=== PATIENT | female | born 1960 | race Caucasian/White ===

== ENCOUNTER 2019-08-08 18:39 | Observation (INO) | payer BC ==
[2019-08-08 19:49] LABS: Anion Gap 16 mmol/L (10-20); BUN (Urea Nitrogen) Less than 4 mg/dL (9.8-20.1); Calc. Creatinine Clearance 0 mL/min (70-130); Calcium 8.6 mg/dL (7.8-10.44); Carbon Dioxide 23 mmol/L (22-29); Chloride 96 mmol/L (98-107); Estimated GFR-MDRD Greater than 90; Glucose 95 mg/dL (70-105); Potassium 3.5 mmol/L (3.5-5.1); Sodium 131 mmol/L (136-145)
[2019-08-08] MEDS ORDERED: Haloperidol Lactate 5 MG/ML VIAL ONE (20:21)
[2019-08-08] MEDS ORDERED: hydrALAZINE 20 MG/ML VIAL SLOW IVP PRN (22:26)
[2019-08-08] MEDS ORDERED: Nitroglycerin 0.4 MG TAB (25 Tab Bottle) PO PRN (22:26)
[2019-08-08] MEDS ORDERED: Ondansetron PF 4 MG/2 ML Vial IVP PRN (22:26)
[2019-08-08] MEDS ORDERED: Nitroglycerin 2% Ointment 1 INCH/1 GM Packet TOP SCH (23:30)
--- NOTE | 2019-08-08 23:31 | HP ---
PRIMARY CARE PHYSICIAN: Meseret Ling MD CHIEF COMPLAINT: Abdominal pain. HISTORY OF PRESENT ILLNESS: Ms. Barnhart is a pleasant 58-year-old female, who has a history of hypertension and hypercholesterolemia. She was in her usual state of health until about 2 weeks ago. She started having what she says is a bronchitis like symptoms. She was coughing and congested and then in the last couple of days, she started having abdominal pain and says that she would get pain on the left side of her abdomen every time she would eat. The eating seem to make it worse. She also felt nauseated and then the night before admission, she was vomiting all night and all this morning. She denies having any fevers, but she was having some chills. She did have some diarrhea. There is no vomiting any blood or any blood in the stools. She says the pain in the left side kind of moved more to the epigastric region, but she still has some soreness on the left side. When asked if she has had any sick contacts, she says her granddaughter who is 15-year-old was sick with similar symptoms about 2 weeks ago, but no other contacts and she has not eaten anything unusual that she is aware of. Currently after being given some IV fluids, she is feeling better. She originally presented to the emergency room in [place], where they did give her IV Protonix as well as GI cocktail, placed her on some IV fluids. There, it was noted that she had an elevated troponin of 0.033. She had a CT scan of the abdomen and pelvis and ultrasound, which were essentially negative. REVIEW OF SYSTEMS: All systems were reviewed and are negative except for that mentioned in the history of present illness. PAST MEDICAL HISTORY: Significant for hypertension, hypercholesterolemia, and breast cancer. PAST SURGICAL HISTORY: She has had a x2, lumpectomy, cholecystectomy. ALLERGIES: NO KNOWN DRUG ALLERGIES. SOCIAL HISTORY: She smokes about a pack a week for the last 15 years. She will drink beer occasionally. She has 2 children. She is . She currently does not work outside the home. FAMILY HISTORY: Significant for cancer. MEDICATIONS: Aspirin 81 mg daily, as well as amlodipine 10 mg daily. PHYSICAL EXAMINATION: GENERAL: She is alert and oriented. She appears to be in no acute distress. She is well developed and well nourished. VITAL SIGNS: Blood pressure 133/78, heart rate 93, respiratory rate 17, temperature is 98.5. HEENT: Pupils are equal, round, and reactive to light. Extraocular muscles are intact. Her sclerae anicteric. Throat, no erythema, no exudates. NECK: No adenopathy. No bruits. LUNGS: Clear to auscultation. There is no wheezing, no rales, no rhonchi. CARDIOVASCULAR: She had a normal S1, S2. There is no S3 or S4. However, I did hear a possible slight systolic murmur. ABDOMEN: Soft. She did have some mild left-sided tenderness. There is no rebound, no guarding, no organomegaly. EXTREMITIES: There is no clubbing or cyanosis. No edema. No joint effusions. NEUROLOGIC: Her cranial nerves are intact. Muscle strength is also intact. SKIN AND INTEGUMENT: No skin changes. No rash. LABORATORY DATA: Lab work from the ER in [place] was reviewed. Her white blood cell count there was 12.7, hemoglobin 14, hematocrit is 43.1, and platelet count was 314. Sodium 129, potassium 3.6, chloride is 90, CO2 is 25, BUN of 5, creatinine 0.55, glucose is 101, alkaline phosphatase was 206. Troponin 0.033. She had a CT scan of the abdomen showing some hepatomegaly and steatosis. There was noted a 4 cm density in the adnexa. She had an ultrasound showing post cholecystectomy. Chest x-ray showed some chronic changes, but no infiltrates. On her EKG, it is sinus rhythm, the rate was 84. There was some changes associated with left atrial enlargement. This is by my reading. ASSESSMENT: 1. This is a pleasant 58-year-old female, who presents with abdominal pain which has been left-sided, appears to be worse with eating. However, CT scan is essentially negative. However, she did have a slightly elevated troponin at [place]. For this reason, we will rule out cardiac causes given her history of hypertension and smoking. It is unlikely though I now suspect that her symptoms are likely related to some type of viral gastroenteritis. However, for the plan, she will be placed in observation, continue to trend her cardiac enzymes, get a nuclear stress test in the a.m. as well as an echocardiogram. 2. For abdominal pain, CT scan and ultrasound have already been done. Her alkaline phosphatase was slightly elevated. We will get hepatitis panel and repeat her chemistry panel and liver function test in the a.m. 3. Hypertension. We will need to reconcile and restart her home medications and further recommendations depend on her clinical course. Job ID: [id number]
[2019-08-08] MEDS ORDERED: Nitroglycerin 2% Ointment 1 INCH/1 GM Packet ONE (23:37)
[2019-08-08 23:57] LABS: Troponin I Less than 0.010 ng/mL (< 0.028)
[2019-08-09 00:14] LABS: HBCM Index 0.07 S/CO (0-0.79); HBSAg Index 0.23 S/CO (0-0.99); Hep A IgM AB Non-Reactive (NonReactive); Hep A IgM S/CO 0.11 S/CO (0-0.79); Hep B Surf Ag Non-Reactive S/CO (NonReactive); Hep C IgG Ab Non-Reactive (NonReactive); Hep C Index 0.17 S/CO (0-0.79); Hepatitis B Core IgM Abs Non-Reactive (NonReactive)
[2019-08-09] MEDS ORDERED: Acetaminophen 325 MG TAB ONE (01:45)
[2019-08-09] MEDS: Acetaminophen 325 MG TAB PO PRN ×3 (01:50→18:26)
[2019-08-09 02:41] LABS: #Basophils 0.1 thou/uL (0.0-0.2); #Eosinphils 0.1 thou/uL (0.0-0.7); #Lymphocytes 2.3 thou/uL (1.20-3.40); #Monocytes 0.4 thou/uL (0.11-0.59); #Neutrophils 6.6 thou/uL (1.40-6.50); %Basophils 0.7 % (0.0-1.0); %Lymphocytes 24.5 % (21.0-51.0); %Monocytes 4.7 % (0.0-10.0); %Neutrophils 69.1 % (42.0-75.0); Hemoglobin 14.1 g/dL (12.0-16.0); Mean Corpuscular HGB CONC 34.9 g/dL (32.0-36.0); Mean Corpuscular Hemoglobin 33.7 pg (27.0-31.0); Mean Corpuscular Volume 96.8 fL (78.0-98.0); Mean Platelet Volume 6.8 fL (7.4-10.4); Platelet Count 288 thou/uL (130-400); RBC Distribution Width 11.4 % (11.5-14.5); Red Blood Cell (RBC) Count 4.17 mill/uL (4.20-5.40); White Blood Cell (WBC) Count 9.6 thou/uL (4.8-10.8)
[2019-08-09 03:26] LABS: ALT (SGPT) 38 U/L (8-55); AST (SGOT) 77 U/L (5-34); Albumin 3.9 g/dL (3.5-5.0); Alkaline Phosphatase 190 U/L (40-110); Anion Gap 14 mmol/L (10-20); BUN (Urea Nitrogen) Less than 4 mg/dL (9.8-20.1); Bilirubin, Direct 0.2 mg/dL (0.1-0.3); Bilirubin, Total 0.5 mg/dL (0.2-1.2); Calc. Creatinine Clearance 0 mL/min (70-130); Calcium 8.9 mg/dL (7.8-10.44); Carbon Dioxide 25 mmol/L (22-29); Chloride 96 mmol/L (98-107); Cholesterol 223 mg/dl (< 200 Desired); Estimated GFR-MDRD Greater than 90; Glucose 100 mg/dL (70-105); HDL Cholesterol 56 mg/dL (>60 Neg Risk); LDL Cholesterol, Calculated 137 mg/dL; Potassium 3.4 mmol/L (3.5-5.1); Sodium 132 mmol/L (136-145); Triglycerides 148 mg/dL (Less than 150)
[2019-08-09] MEDS: Nitroglycerin 2% Ointment 1 INCH/1 GM Packet TOP SCH ×3 (05:41→21:03)
[2019-08-09] MEDS ORDERED: Lorazepam 1 MG TAB ONE (10:43)
[2019-08-09] MEDS ORDERED: Famotidine 20 MG TAB ONE (11:40)
[2019-08-09] MEDS ORDERED: Enoxaparin Sodium 40 MG/0.4 ML SYRINGE ONE (11:40)
[2019-08-09] MEDS: Famotidine 20 MG TAB PO SCH ×2 (11:44→21:02)
[2019-08-09] MEDS: Enoxaparin Sodium 40 MG/0.4 ML SYRINGE SC SCH (11:44)
[2019-08-09 12:07] VITALS: BMI 31.0
[2019-08-09] MEDS: Ondansetron ODT 4 MG TAB PO PRN (13:55)
[2019-08-09] MEDS ORDERED: Potassium Chloride 20 MEQ TAB PO SCH (14:45)
--- NOTE | 2019-08-09 17:36 | PRG ---
DATE OF SERVICE: 08/09/2019 SUBJECTIVE: She is seen and examined at the bedside. She feels better. She was able to eat today. She does not have any diarrhea. She does not have that much pain in the abdomen like she was before, although she still has some soreness in the abdomen. She had one part of her stress test done today, and she will have the 2nd part tomorrow. OBJECTIVE: VITAL SIGNS: Blood pressure is 137/63, pulse is 96, temperature is 98.3, respirations 16, and O2 saturation 95% on room air. HEENT: Head is atraumatic and normocephalic. Eyes are PERRLA. Sclerae are nonicteric. Oral mucosa is moist. NECK: Supple. LUNGS: Clear. HEART: S1 and S2 normal. ABDOMEN: Somewhat tender mainly in the epigastric area. No guarding. No masses. EXTREMITIES: No clubbing, cyanosis, or edema. NEUROLOGICAL: She is alert and oriented x4. There are no any motor or sensory deficits. LABORATORY DATA: Labs showed a white count of 9.6, hemoglobin 14.1, hematocrit 40.4, and platelet count is 288,000. Sodium of 132, potassium 3.4, chloride 96, CO2 of 25, BUN 4, creatinine 0.55. AST 77, alkaline phosphatase 193. Troponins within normal limits. Total cholesterol 223, triglycerides 148, LDL of 137, HDL 56. Hepatitis panel within normal limits. IMPRESSION: 1. Acute gastroenteritis, most likely viral in origin with hepatomegaly with diffuse hepatic steatosis along with mild fullness of the ureters bilaterally without calyceal dilatation along with reservoir effect of the common bile duct along with mildly prominent ed hepatis lymph nodes and 4 cm hypodensity left adnexa on the CT of the abdomen done in [facility]. 2. Hypertension. 3. Hyperlipidemia. 4. History of breast cancer. PLAN: The patient is a tolerating regular food without more nausea, vomiting, or diarrhea. I think this was viral gastroenteritis. We are going to continue observation. We will do the 2nd part of the stress test tomorrow, and we are going to repeat her liver function test tomorrow morning. Her AST was slightly elevated, and her ALT was normal, and alkaline phosphatase was somewhat elevated too. Those two tests came down comparing to what they were yesterday. Her hyponatremia and hypochloremia improved. We will continue gentle hydration, and she should be able to go home tomorrow if she tolerates her food and she does not have any significant problems. Job ID: [id number]
[2019-08-09] MEDS: traMADol HCl 50 MG TAB PO PRN ×2 (18:26→23:15)
[2019-08-09] MEDS ORDERED: Lidocaine 2% Viscous Solution 20 ML, Aluminum & Magnesium Hydroxide 30 ML, Donnatal Eli... SSW SCH (22:00)
[2019-08-10] MEDS: Nitroglycerin 2% Ointment 1 INCH/1 GM Packet TOP SCH ×3 (04:33→21:00)
[2019-08-10 05:15] LABS: ALT (SGPT) 39 U/L (8-55); AST (SGOT) 80 U/L (5-34); Albumin 3.6 g/dL (3.5-5.0); Alkaline Phosphatase 165 U/L (40-110); Anion Gap 13 mmol/L (10-20); BUN (Urea Nitrogen) 5 mg/dL (9.8-20.1); Bilirubin, Total 0.4 mg/dL (0.2-1.2); Calc. Creatinine Clearance 128 mL/min (70-130); Calcium 8.8 mg/dL (7.8-10.44); Carbon Dioxide 25 mmol/L (22-29); Chloride 94 mmol/L (98-107); Estimated GFR-MDRD Greater than 90; Glucose 80 mg/dL (70-105); Potassium 3.6 mmol/L (3.5-5.1); Protein, Total 6.6 g/dL (6.0-8.3); Sodium 128 mmol/L (136-145)
[2019-08-10] MEDS: Enoxaparin Sodium 40 MG/0.4 ML SYRINGE SC SCH (07:54)
[2019-08-10] MEDS: Ubidecarenone 50 MG CAP PO SCH (08:01)
[2019-08-10] MEDS: Famotidine 20 MG TAB PO SCH ×2 (08:02→20:59)
[2019-08-10] MEDS: Amlodipine 10 MG TAB PO SCH (08:02)
[2019-08-10] MEDS: Acetaminophen 325 MG TAB PO PRN ×2 (08:07→21:00)
[2019-08-10] MEDS: traMADol HCl 50 MG TAB PO PRN ×4 (08:07→21:00)
[2019-08-10] MEDS ORDERED: Lorazepam 0.5 MG TAB PO SCH (09:15)
[2019-08-10] MEDS ORDERED: Regadenoson 0.4 MG/5 ML SYRINGE ONE (09:20)
--- NOTE | 2019-08-10 14:02 | NM ---
MYOCARDIAL PERFUSION SCAN: 08/10/19 The patient was given 10 millicuries of technetium Sestamibi for rest imaging and 30 millicuries for stress imaging. The patient was stressed according to Lexiscan protocol. INDICATIONS: Elevated troponins. Ventricle was imaged with SPECT imaging and attenuation correction images obtained. FINDINGS: There is very mild activity change seen in the apex even on attenuation corrected imaging. I cannot e xclude mild reversible ischemia at the apex. Activity is otherwise normal. This activity change in th e apex is best appreciated on wyatt scale images. Wall motion appears normal. Ejection fraction is normal at 69%. IMPRESSION: Evidence of mild reversible ischemia in the apex. POS: [facility]
[2019-08-10] MEDS: Ondansetron ODT 4 MG TAB PO PRN (15:21)
--- NOTE | 2019-08-10 17:29 | PRG ---
DATE OF SERVICE: 08/10/2019 SUBJECTIVE: The patient is seen and examined at the bedside. She had some nausea today after she ate. She thinks that she ate too much. She almost ate 2 portions. She did not vomit. She did not have any diarrhea. She still has some abdominal discomfort, but it is significantly less than what she had before. She just came back from stress test. OBJECTIVE: VITAL SIGNS: Blood pressure is 167/79, pulse is 88, respirations 16, temperature is 98.2, and O2 saturation is 96% on room air. HEENT: Her head is atraumatic and normocephalic. Eyes are PERRLA. Sclerae are nonicteric. Oral mucosa is moist. NECK: Supple. LUNGS: Clear. HEART: S1 and S2 normal. There is a systolic murmur at the left sternal border mostly audible at this area, 2/6. No S3. No S4. ABDOMEN: Soft, obese, somewhat tender in the midepigastric area. Bowel sounds are present. EXTREMITIES: No clubbing, cyanosis, or edema. NEUROLOGICAL: She is alert and oriented x4. There are no any motor or sensory deficits. LABORATORY DATA: Sodium of 128, potassium 3.6, chloride 94, CO2 of 25, BUN 5, creatinine 0.6. AST 80, alkaline phosphatase 165. DIAGNOSTIC DATA: Echocardiogram showed LVEF estimated at 60% to 65%, grade 1/3 diastolic dysfunction, mild mitral regurgitation, moderate aortic regurgitation, and mild tricuspid regurgitation. IMPRESSION: 1. Acute gastroenteritis, most likely viral in origin with hepatomegaly with diffuse hepatic steatosis along with mild fullness of the ureters bilaterally without calyceal dilatation along with reservoir effect of the common bile duct along with mildly prominent ed hepatis lymph nodes at 4 cm hypodensity of left adnexum on the CT of the abdomen done in [facility]. 2. Hypertension. 3. Hyperlipidemia. 4. History of breast cancer. 5. Cardiac ischemia per currently done stress test during this hospitalization. 6. Hyponatremia and hypochloremia, unclear etiology at this point. PLAN: Cardiology consultation with Dr. Elizabeth, today. GI evaluation of her abdominal pain with ultrasound of the abdomen and pelvic ultrasound to evaluate adnexal lesion. The patient had a CT of the abdomen and pelvis, which showed 4 cm hypodensity of the left adnexum, for which a followup pelvic ultrasound was recommended by radiologist, and since she has a murmur in the upper part of the chest, she might have a stenosis of the left carotid artery, and we will get a carotid ultrasound done. Job ID: [id number]
[2019-08-10] MEDS ORDERED: Carvedilol 3.125 MG TAB PO SCH (18:15)
--- NOTE | 2019-08-10 21:25 | CON ---
DATE OF CONSULTATION: PRIMARY CARE PHYSICIAN: Meseret Ling MD, [facility] doctor. PRIMARY GRAPHIC DESIGN TEACHER: Han Carrasco MD REASON FOR CARDIOLOGY CONSULTATION: Abnormal stress test. HISTORY OF PRESENT ILLNESS: Ms. Barnhart is a very present 58-year-old female with a significant history of hypertension and hyperlipidemia and a current smoker. She was doing relatively well until 2 weeks ago, she started having bronchitis for 2 weeks. Also, she started having sharp pain in the left lateral abdomen, upper abdomen, and under left breast for 2 weeks. She also started having nausea and vomiting for the last 3 to 4 days, especially after eating and drinking. However, she denied any chest pain, heaviness, tightness, shortness of breath, or any other cardiac complaints. She is having a watery diarrhea 1 to 2 times a week. However, she has not had it for the last couple of days. She never had a cardiac workup till Tuesday. The patient's stress test showing mild reversible ischemia at the apex with EF 69%. The patient's echocardiogram done today, which shows EF 60% to 65%, grade 1 diastolic dysfunction, mild mitral valve regurgitation, mild aortic valve regurgitation, and mild tricuspid regurgitation. At this moment, the patient also complained of pain to the bilateral lower extremities with resisted walking and eventually this symptom improved after 5 to 10 minutes. PAST MEDICAL HISTORY: 1. Hypertension. 2. Hyperlipidemia. 3. Left breast cancer about 19 years ago. 4. Seasonal allergy. 5. Current smoker, 1 pack a week. PAST SURGICAL HISTORY: 1. x2. 2. Lumpectomy x2. 3. Cholecystectomy in August 2014. FAMILY HISTORY: The patient has a very significant family history of cancer such as breast lymphoma and lung cancer in her family. SOCIAL HISTORY: She is . She has 2 children, who are living well. She drinks a few beers a day and close to 6 packs of beer on weekend. Most likely she drink beer every day. She smokes 1 pack a week. She tried to quit. She is smoking for 15 years. She denied illicit drug abuse. She walks 1 to 2 miles 3 to 4 times a week without any cardiac complaints. She drinks less than 2 cups of coffee in the morning. ALLERGIES: NO KNOWN DRUG ALLERGIES. HOME MEDICATIONS: 1. Aspirin 81 mg once a day. 2. Amlodipine 10 mg once a day. 3. Fenofibrate 48 mg once a day. 4. CoQ10 200 mg once a day. 5. Vitamin B12 100 mcg once a day. 6. Vitamin D 2000 units, 4 capsules daily. REVIEW OF SYSTEMS: 12-point review of systems negative unless otherwise mentioned in the HPI. PHYSICAL EXAMINATION: VITAL SIGNS: Blood pressure 145/71, temperature 98.4, heart rate 91, sinus rhythm, respiratory rate 16, O2 saturation 95% on room air. GENERAL: The patient is alert and oriented x4, not in acute distress. HEENT: Head is normocephalic, atraumatic. Eyes: Extraocular muscle movement intact. ENT and mouth, oral and nasal mucosa moist without lesion. NECK: Supple. Normal range of motion. No JVD. Mild murmur, bruit in the left neck side. RESPIRATORY: Clear to auscultate bilaterally, but diminished at the bases. CARDIOVASCULAR: Regular rate and rhythm. Normal S1, S2. There is no S3 or S4. No significant murmur, hives, or thrill noted. 2+ pulses in bilateral upper and lower extremities. 2+ pulses in the bilateral upper extremities and bilateral dorsal pedis pulses; however, very diminished in bilateral femoral, popliteal, and posterior tibial pulses. No edema in the lower extremities. ABDOMEN: Soft, mass to palpitate, but very tenderness to the epigastric area with palpitation. SKIN: Warm and dry. No lesion, rash, or erythema noted. MUSCULOSKELETAL: The patient able to move all extremities without difficulty. The patient has pain with walking in the lower extremities. NEUROLOGIC: The patient is alert and oriented x4. Nonfocal. PSYCHIATRIC: The patient's mood is appropriate. LABORATORY DATA: WBC 9.6, hemoglobin 14.1, hematocrit 40.4, platelet 288. D-dimer 0.27. Sodium 128, potassium 3.6, BUN 5, creatinine 0.6, calcium 8.8, AST 80, ALT 39, troponin negative x3. Cholesterol 223, triglyceride 148, HDL 56, and LDL 137. CMP is 2.37. ASSESSMENT AND PLAN: 1. Abnormal stress test today showed mild ischemia in the apex. The patient is asymptomatic at this moment; however, the patient has a history of hypertension and current smoker, the patient should undergo cardiac catheterization, I would like to discuss with Dr. Elizabeth, possibly the patient might be able to have a cardiac catheterization as outpatient. I like to defer to Dr. Elizabeth' decision. 2. Hypertension. The patient's blood pressure is stable at this moment with current medication. 3. Hyperlipidemia. She has been on the fenofibrate 48 mg. However, the patient's last cholesterol today, total cholesterol 223 and LDL 137. LDL should be less than 100. The patient might need to start statin. 4. Bruit in the left carotid area. The patient denied any dizziness, or lightheadedness. The patient's primary care doctors will order a carotid Doppler study during this hospitalization. 5. Diminished pulses in the bilateral lower extremities. The patient denied claudication. However, the patient have to stop several times sometimes during walking exercise. Arterial Doppler study of the lower extremity with JUANY will be recommended for this patient. Thank you very much for Cardiology Service to participate in the care of this patient. We will follow along the patient's care team and make further recommendations as appropriate. Job ID: [id number]
--- NOTE | 2019-08-10 23:50 | CON ---
DATE OF CONSULTATION: 08/10/2019 INDICATION FOR CONSULTATION: A 58-year-old female who was admitted after an episode of abdominal pain, nausea and vomiting. She does have a history of hypertension, hypercholesterolemia, and tobacco abuse. She continues to smoke. She is admitted to the hospital and underwent stress testing. Her cardiac enzymes are negative. Her LDL level was 131. The stress test does show evidence of small area of possible apical reversible ischemia. She also has been found to have left carotid bruit and still being evaluated for some other issues from a medical standpoint. Echocardiogram showed an ejection fraction of 60% to 65% with moderate aortic valve regurgitation, mild mitral and tricuspid valve regurgitation, and evidence of 1/3 diastolic dysfunction. At this time, she has denied any chest pain to me. She is very stable otherwise and had no EKG changes that would indicate ischemia and enzymes remain negative. PAST MEDICAL HISTORY: Please refer to the notes dictated by the nurse practitioner. SOCIAL HISTORY: Please refer to the notes dictated by the nurse practitioner. FAMILY HISTORY: Please refer to the notes dictated by the nurse practitioner. REVIEW OF SYSTEMS: Please refer to the notes dictated by the nurse practitioner. MEDICATIONS: Please refer to the notes dictated by the nurse practitioner. ALLERGIES: PLEASE REFER TO THE NOTES DICTATED BY THE NURSE PRACTITIONER. LABORATORY DATA: Please refer to the notes dictated by the nurse practitioner. PHYSICAL EXAMINATION: GENERAL: As indicated, a well-developed and well-nourished female. VITAL SIGNS: Blood pressure is elevated at 160s systolically, heart rates is in the 60s to 70s, shows sinus rhythm. HEENT: Shows the head to be normocephalic and atraumatic. There is a left carotid bruit. The right carotid has decreased upstroke and may also have a soft bruit on the right side, but there is definitely a left carotid bruit noted. CHEST: Clear to auscultation. CARDIOVASCULAR: Reveals a regular rate and rhythm. She has soft systolic murmur of the aortic area. ABDOMEN: Soft and nontender. I cannot elicit any masses or tenderness at this time. Femoral pulses are present. EXTREMITIES: Showed no clubbing, cyanosis, or edema. Dorsalis pedis pulses are present. Posterior tibial pulses were not palpable. NEUROLOGIC: She appears to be intact. IMPRESSION: 1. A 58-year-old female with slightly abnormal stress test, but risk factors for coronary artery disease. She denies any chest pain. EKG is unremarkable, as well as enzymes. I do not see an indication at this time to proceed with cardiac catheterization. 2. Carotid artery bruit on the left side. She will need to undergo further evaluation. She is to have a carotid Doppler done tomorrow. 3. Evidence of hypercholesterolemia with an LDL of 131. Since she is a smoker, it is recommended the LDL level be less than 70. I suggest she start on statin medication such as Lipitor or Crestor in addition to her medication that she is already taking. I think she is taking fenofibrate. 4. Tobacco abuse. I have strongly encouraged her to stop smoking altogether. 5. Mild diastolic dysfunction. We will continue to monitor this and follow this and will be continued to treat with medications. At this time, overall cardiac status appears to be stable. Further workup is pending for her carotids, as well as abdominal ultrasound. I believe there was some abnormalities noted perhaps on the CT scan of the abdomen. Job ID: [id number]
[2019-08-11] MEDS: Acetaminophen 325 MG TAB PO PRN ×3 (01:03→09:47)
[2019-08-11] MEDS: traMADol HCl 50 MG TAB PO PRN ×3 (01:03→09:46)
[2019-08-11] MEDS: Nitroglycerin 2% Ointment 1 INCH/1 GM Packet TOP SCH (05:31)
[2019-08-11] MEDS ORDERED: Carvedilol 3.125 MG TAB PO SCH (08:00)
[2019-08-11] MEDS: Enoxaparin Sodium 40 MG/0.4 ML SYRINGE SC SCH (08:39)
[2019-08-11] MEDS: Amlodipine 10 MG TAB PO SCH (08:39)
[2019-08-11] MEDS: Famotidine 20 MG TAB PO SCH (08:40)
[2019-08-11] MEDS: Ubidecarenone 50 MG CAP PO SCH (08:40)
[2019-08-11] MEDS ORDERED: Aspirin 81 mg Enteric Coated Tablet PO SCH (09:45)
--- NOTE | 2019-08-11 09:48 | PDOC.CPN ---
- Subjective Date: 08/11/19 Time: 09:49 Interval history: The pt seen and examined. No overnight events. NO cardiac complaints. She cont having pain to Lt lateral ABD area. - Objective Allergies/Adverse Reactions: Allergies Allergy/AdvReac Type Severity Reaction Status Date / Time No Known Drug Allergies Allergy Verified 08/09/19 12:54 Visit Medications: Current Medications Acetaminophen (Tylenol) 650 mg PO Q4H PRN PRN Reason: Headache/Fever/Mild Pain (1-3) Last Admin: 08/11/19 05:33 Dose: 650 mg Amlodipine Besylate (Norvasc) 10 mg PO DAILY [facility] Last Admin: 08/11/19 08:39 Dose: 10 mg Carvedilol (Coreg) 3.125 mg PO BID-[facility] Last Admin: 08/11/19 08:39 Dose: 3.125 mg Coenzyme Q10 (Coenzyme Q10) 200 mg PO DAILY [facility] Last Admin: 08/11/19 08:40 Dose: 200 mg Enoxaparin Sodium (Lovenox) 40 mg SC 0900 [facility] Last Admin: 08/11/19 08:39 Dose: 40 mg Famotidine (Pepcid) 20 mg PO BID [facility] Last Admin: 08/11/19 08:40 Dose: 20 mg Hydralazine HCl (Apresoline) 10 mg SLOW IVP Q4H PRN PRN Reason: SBP > 180 and HR < 70 Nitroglycerin (Nitro-Bid 2% Ointment) 0.5 inch TOP Q8HR [facility] Last Admin: 08/11/19 05:31 Dose: 0.5 inch Nitroglycerin (Nitrostat) 0.4 mg PO Q5MIN PRN PRN Reason: Chest Pain Ondansetron HCl (Zofran Odt) 4 mg PO Q6H PRN PRN Reason: Nausea/Vomiting Last Admin: 08/10/19 15:21 Dose: 4 mg Ondansetron HCl (Zofran) 4 mg IVP Q6H PRN PRN Reason: Nausea/Vomiting Tramadol HCl (Ultram) 50 mg PO Q4H PRN PRN Reason: Pain Last Admin: 08/11/19 05:33 Dose: 50 mg Vital Signs & Weight: Vital Signs Temp Pulse Resp BP BP Pulse Ox 08/11/19 07:43 97.9 F 88 16 120/70 94 L 08/11/19 05:25 98.2 F 80 16 132/77 94 L 08/11/19 00:50 98.1 F 82 16 128/72 95 Weight 171 lb - Physical Exam General: alert & oriented x3 Neck: supple neck Cardiac: regular rate and rhythm, S1/S2 Lungs: clear to auscultation Neuro: cranial nerve 2-12 intact Abdomen: unremarkable Extremities: no cyanosis Musculoskeletal: normal range of motion - Labs Result Diagrams: 08/09/19 02:34 08/10/19 04:37 Troponin/CKMB Troponin I 0.010 ng/mL (< 0.028) 08/09/19 02:34 - Telemetry Sinus rhythms and dysrhythmias: sinus rhythm - Assessment/Plan Assessment/Plan: 1. Abnormal stress test with mild reversible ischemia in apex on 08/10/2019 - asymptomatic; EF 60-65%; On Coreg; will start ASA 81mg qd from today; plan to start Statin; however, would like to defer to Dr Carrasco, who will be the pt's primary collections clerk as outpt, since the pt is heavy drinker and elevated AST 2. HTN - stable with current med 3. HLD - recommend to start regular exercise and watching her diet; holding starting Statin for elevated AST and hx of heavy drinker (per daughter; she does not want to discuss about that with her mother since the pt will upset) 4. Mod AR - cont. to monitor 5. Bruit to Lt carotid artery - Carotid study was done today 6. Diminished BLE pulses - recommend Arterial study as outpt setting 7. Tobacco abuse - 8. possible ETOH abuse - per daughter, the pt drinks at least 6-12 beers a day; however, her daughter does not want to discuss about it front of the pt since the pt will get very upset. MAR reviewed * Echo on 08/10/2019 with EF 60-65%, grade I dd, mild MR and TR, and mod AR * From Cardiac standpoint, the pt is stable d/c home and f/u with Dr Carrasco in 2 wks
--- NOTE | 2019-08-11 10:18 | ULT ---
CAROTID DOPPLER: Date: 08/11/2019 INDICATION: Heart murmur. FINDINGS: Ultrasound and Doppler studies performed of the extracranial carotid arteries. Color Doppler with spe ctral analysis and velocity recordings obtained. FINDINGS: Ultrasound images show mild intimal thickening. No significant plaque4. Velocity recordings are normal bilaterally. Vertebral arteries show antegrade flow. IMPRESSION: 1. Mild intimal thickening. 2. No evidence of stenosis. POS: [facility]
--- NOTE | 2019-08-11 10:25 | ULT ---
PELVIC ULTRASOUND: Date: 08/11/2019 Transabdominal and endovaginal ultrasound of pelvis performed. INDICATION: Follow-up CT of 08/08/2019 which revealed a low density mass in the left pelvis. FINDINGS: The uterus has a normal size and appearance. Evidence of small amount of fluid in the endometrial cav ity. Recommend correlation regarding vaginal bleeding. Uterine measurements recorded at 7.2 x 2.2 x 4.2 cm. Endometrial stripe measured at 2-3 mm. Neither ovary is definitely identified. On the transabdominal exam, there is a cyst in the left adnex a which measures 2.5-3.5 cm. This would correspond to the cystic mass seen in the left pelvis on rece nt CT. Review of the CT indicates that this represents an ovarian cyst. On the endovaginal exam, neither ovary is identified. IMPRESSION: A cystic mass in the left adnexa seen on transabdominal exam corresponds to the cystic mass seen on r ecent CT. CT would indicate a left ovarian cyst. Ultrasound shows simple cystic characteristics. Foll ow-up is recommended to ensure resolution. Cystic ovarian neoplasm remains a consideration in a patie nt of this age. POS: [facility]
[2019-08-11 12:25] VITALS: BP 129/77; TEMP 98.1
--- NOTE | 2019-08-11 16:06 | DIS ---
DATE OF ADMISSION: 08/08/2019 DATE OF DISCHARGE: 08/11/2019 DISCHARGE DISPOSITION: To home. PRIMARY DISCHARGE DIAGNOSIS: Abdominal pain with nausea and vomiting, resolved. SECONDARY DISCHARGE DIAGNOSES: Hypertension, dyslipidemia, osteoarthritis of the knees, and suspected alcohol abuse. PROCEDURES DONE DURING HOSPITALIZATION: Pelvic ultrasound done showed a cystic mass in the left adnexa. Ultrasound shows it to be simple cyst measuring 2.5 x 3.5 cm. Ultrasound carotids showed mild intimal thickening, no evidence of stenosis. Nuclear stress test done showed ejection fraction of 69% with normal wall motion. There is mild reversible ischemia seen in the apex. Echo with 2D Doppler done showed EF of 60% to 65%, moderate aortic regurgitation, normal left ventricular wall thickness, LV size was normal, no regional wall motion abnormalities were seen on the echo. LABORATORY DATA: H and H of 14 and 40, platelet count 288, MCV 96, BUN 5, and creatinine 0.6. AST 80, ALT 39, and alk phos 165. Troponin x3 negative. Total cholesterol 223, triglycerides 148, LDL 137, and HDL 56. Acute hepatitis panel was nonreactive. DISCHARGE MEDICATIONS: 1. Norvasc 10 mg p.o. daily. 2. Aspirin 81 mg p.o. daily. 3. Vitamin D3 4000 units p.o. daily. 4. Tricor 48 mg p.o. daily. 5. vitamin B12 1000 mcg p.o. daily. 6. CoQ10 200 mg p.o. daily. 7. Atorvastatin 20 mg p.o. daily. 8. Coreg 3.125 mg twice daily. 9. Bentyl 20 mg 3 times daily p.r.n. for abdominal pain. 10. Zofran p.r.n. ALLERGIES: NO KNOWN DRUG ALLERGIES. DISCHARGE PLAN: The patient is to follow up with her primary care physician, Dr. Ling, in [address] Carrasco in 2 weeks. BRIEF COURSE DURING HOSPITALIZATION: The patient initially came in with complaints of abdominal pain. She also had coughing along with congestion and generalized body aches. In view of this history, the patient was placed under observation on telemetry. She has had one set of indeterminate troponin peaking up to 0.03. She has had a nuclear stress test done, showed possible reversible ischemia at the apex, a small area. Echo was done, which showed normal wall motion with normal ejection fraction as well. She was evaluated by Dr. Elizabeth for Cardiology. No further workup was planned as far as Cardiology was concerned. She has had a pelvic ultrasound and carotid Doppler done, the findings are mentioned above. She has a 3- to 4-cm cyst in the left adnexa, for which the patient has to have outpatient followup with her [employer] with referral from primary care physician. The patient has been clearly instructed to do so. She is hemodynamically stable, otherwise eating and ambulating well. The patient apparently has history of alcohol abuse. She was counseled to quit completely. She is tolerating oral solid diet prior to discharge. Please note, I have seen and examined the patient on the day of discharge. Job ID: [id number]
--- NOTE | 2019-08-12 00:48 | EKG ---
Test Reason : Blood Pressure : / mmHG Vent. Rate : 084 BPM Atrial Rate : 084 BPM P-R Int : 168 ms QRS Dur : 090 ms QT Int : 382 ms P-R-T Axes : 064 -20 027 degrees QTc Int : 451 ms Normal sinus rhythm Possible Left atrial enlargement Borderline ECG Confirmed by ADRIÁN JAQUEZ M.D. ([id number]), drilling plant operator JESUS MANUEL MATIAS ([id number] on 08/12/2019 12:48:22 AM Referred By: Confirmed By:ADRIÁN JAQUEZ M.D.
[2019-08-12] MEDS ORDERED: Aspirin 81 mg Enteric Coated Tablet PO SCH (09:00)
== END 2019-08-11 13:47 | disposition home or self-care (01) ==
LOC: ERS 18:39 → ERHOLD 21:23 → 2SW 08-09 11:54
PROVIDERS: ADMIT Internal Medicine; ATTEND Internal Medicine
DX: R10.12 Left upper quadrant pain (principal); R11.2 Nausea with vomiting, unspecified; I10 Essential (primary) hypertension; E78.5 Hyperlipidemia, unspecified; N83.8 Other noninflammatory disorders of ovary, fallopian tube and broad ligament; M17.9 Osteoarthritis of knee, unspecified; F17.210 Nicotine dependence, cigarettes, uncomplicated; Z85.3 Personal history of malignant neoplasm of breast; Z79.82 Long term (current) use of aspirin; Z79.899 Other long term (current) drug therapy
CPT/HCPCS: 36415; 76856; 78452; 80048; 80053; 80061; 80074; 80076; 84484; 85025; 85379; 90471; 90732; 93005; 93017; 93306; 93880; 96372; 96374; A9500; G0009; G0378; J1630; J1650; J2405; J2785; Q0162

== ENCOUNTER 2019-10-13 23:53 | Emergency (ER) | payer BC | END 2019-10-14 01:52 | disposition home or self-care (01) | LOC: ERS 23:53 | DX: E87.1 Hypo-osmolality and hyponatremia (principal); E78.5 Hyperlipidemia, unspecified; E78.00 Pure hypercholesterolemia, unspecified; I10 Essential (primary) hypertension; F17.210 Nicotine dependence, cigarettes, uncomplicated; Z79.82 Long term (current) use of aspirin; Z79.891 Long term (current) use of opiate analgesic; Z79.899 Other long term (current) drug therapy | CPT/HCPCS: J0500 ==

== ENCOUNTER 2019-10-15 13:32 | Inpatient (IN) | payer BC ==
[2019-10-15] MEDS ORDERED: Metoclopramide HCl 10 MG/2 ML VIAL ONE (13:51)
[2019-10-15 14:13] LABS: #Basophils 0.1 thou/uL (0.0-0.2); #Eosinphils 0.1 thou/uL (0.0-0.7); #Lymphocytes 3.4 thou/uL (1.20-3.40); #Monocytes 0.8 thou/uL (0.11-0.59); #Neutrophils 10.3 thou/uL (1.40-6.50); %Basophils 0.5 % (0.0-1.0); %Eosinophils 0.5 % (0.0-10.0); %Lymphocytes 23.3 % (21.0-51.0); %Monocytes 5.4 % (0.0-10.0); %Neutrophils 70.3 % (42.0-75.0); Mean Corpuscular HGB CONC 36.4 g/dL (32.0-36.0); Mean Corpuscular Hemoglobin 35.5 pg (27.0-31.0); Mean Corpuscular Volume 97.3 fL (78.0-98.0); Mean Platelet Volume 6.7 fL (7.4-10.4); Platelet Count 347 thou/uL (130-400); RBC Distribution Width 11.3 % (11.5-14.5); Red Blood Cell (RBC) Count 3.95 mill/uL (4.20-5.40); White Blood Cell (WBC) Count 14.6 thou/uL (4.8-10.8)
[2019-10-15] MEDS ORDERED: Morphine 4 MG/ML VIAL ONE ×2 (14:21→18:48)
[2019-10-15 14:28] LABS: Chloride 89 mmol/L (98-107); Potassium 3.2 mmol/L (3.5-5.1); Sodium 128 mmol/L (136-145)
[2019-10-15 14:40] LABS: ALT (SGPT) 36 U/L (8-55); AST (SGOT) 81 U/L (5-34); Albumin 4.7 g/dL (3.5-5.0); Alkaline Phosphatase 264 U/L (40-110); Anion Gap 18 mmol/L (10-20); BUN (Urea Nitrogen) Less than 4 mg/dL (9.8-20.1); Bilirubin, Total 0.7 mg/dL (0.2-1.2); Calc. Creatinine Clearance 0 mL/min (70-130); Calcium 9.4 mg/dL (7.8-10.44); Carbon Dioxide 25 mmol/L (22-29); Estimated GFR-MDRD 80; Globulin 3.3 g/dL (2.4-3.5); Glucose 100 mg/dL (70-105)
[2019-10-15 16:03] LABS: Bacteria/HPF None Seen HPF (None Seen); Bilirubin Negative (Negative); Blood, Urine Negative (Negative); Clarity Clear (Clear); Glucose, Urine (Dipstick) Normal (Negative); Leukocyte Negative Leu/uL (Negative); Nitrite Negative (Negative); Protein, Urine (Dipstick) 200 mg/dL (Neg-Trace); RBC/HPF 0-3 HPF (0-3); Squamous Epithelial 0-3 HPF (0-3); Urobilinogen Normal mg/dL (Less than 2); WBC/HPF 0-3 HPF (0-3)
[2019-10-15 16:04] LABS: Pregnancy Test - Urine (BHCG) Negative (Negative); Pregu Control Background? CLEAR/WHITE (CLR/WHITE); Pregu Control Bar Appear? YES (CONTROL BAR); Specific Gravity 1.006 (1.002-1.036)
[2019-10-15] MEDS ORDERED: Acetaminophen 325 MG TAB PO PRN (18:03)
[2019-10-15] MEDS ORDERED: Dicyclomine 20 MG TAB PO PRN (18:06)
[2019-10-15] MEDS ORDERED: Ondansetron PF 4 MG/2 ML Vial ONE (18:48)
--- NOTE | 2019-10-15 19:26 | HP ---
CHIEF COMPLAINT: Intractable nausea, vomiting, and diarrhea. HISTORY OF PRESENT ILLNESS: A 58-year-old female with a history of hypertension , hyperlipidemia, breast cancer, presenting with intractable nausea, vomiting, and diarrhea. Symptoms started about five days ago. She did come on Tuesday to the ER and discharged from the ER as she felt little better. However, she was not able to take any p.o. intake after going home. She had 4 to 5 episodes of watery diarrhea without blood or mucus in it. She also was quite nauseated and several episodes of emesis, not able to keep anything down. Because of the vomiting, she also felt little cough and sore throat, mild chest tightness in the area. She had dry heaves for the last few days. She has no sick contacts. She did not take any unusual food items. Her spouse is also at home, but he is not sick. During this episode, she did not have any fever. No risk exposure to COVID. She is not drinking well water. She uses bottled water. She had both EGD and colonoscopy done roughly two months ago by Dr. Sequeira. They asked her to do the stool sample and results are currently pending per patient. She denies any significant abdominal pain other than mild soreness in the lower quadrant. She has a history of cholecystectomy. She was hospitalized in July for abdominal pain. At that time, she also had ultrasound of the pelvic area which showed simple cyst around 2.5 to 3.5 cm. She had a nuclear stress test because of her risk factors during that time, which showed EF of 69% and mild reversible ischemia. Moderate aortic regurgitation. During the initial evaluation, she had a sodium of 128, potassium of 3.2, and hypochloremic metabolic alkalosis consistent with her diarrheal episode as well as emesis. The patient is not taking any new medications, not on any antibiotics. She is not taking any cold syrup. She was started on Coreg recently, but she states that her blood pressure is little labile since starting on that. REVIEW OF SYSTEMS: 13-point review of systems reviewed with the patient. Pertinent addressed in the history of present illness. The rest are negative. She denies any hematuria, dysuria, or hematochezia. Denies headache, tingling, or numbness in her extremities. ALLERGIES: SHE HAS NO KNOWN DRUG ALLERGIES. PAST MEDICAL HISTORY: Hypertension, hyperlipidemia, and breast cancer. PAST SURGICAL HISTORY: Hysterectomy, lumpectomy, and cholecystectomy. MEDICATIONS: 1. Norvasc 10 mg daily. 2. Aspirin 81 mg daily. 3. Vitamin D3 of 4000 units daily. 4. Tricor 48 mg daily. 5. Coenzyme Q10 of 200 mg. 6. Lipitor 20 mg daily. 7. Coreg 3.125 mg twice a day. 8. Bentyl 20 mg three times a day as needed for abdominal discomfort. PHYSICAL EXAMINATION: GENERAL: She is afebrile. Normotensive. Alert, oriented, not toxic looking. CARDIOVASCULAR: Regular rate and rhythm without murmurs, rubs, or gallops. LUNGS: Clear to auscultation bilaterally without wheezing, rales, or rhonchi. ABDOMEN: Soft, nontender, and nondistended. Good bowel sounds. EXTREMITIES: No pitting edema. LABORATORY DATA: WBC 14.6, hemoglobin 14, platelets 347. Sodium 128, potassium 3.2, chloride 89, bicarb 25, creatinine 0.75. Lipase 9. IMPRESSION AND PLAN: 58-year-old female with hypertension, hyperlipidemia, presenting with intractable nausea, vomiting, and diarrhea. The patient is admitted for observation. Rule out Clostridium difficile. Stool studies. IV hydration, antiemetic. Replace the electrolytes. Hypertension. We will continue with Norvasc. Rest of the management based on the clinical course. Job ID: [id number] MTDD
[2019-10-15] MEDS: Sodium Chloride 0.9% 1,000 ML IV SCH (20:51)
[2019-10-15] MEDS: Atorvastatin Calcium 20 MG TAB PO SCH (21:45)
[2019-10-15] MEDS: Ondansetron PF 4 MG/2 ML Vial IVP PRN (23:16)
[2019-10-16 00:38] VITALS: BMI 29.2
[2019-10-16] MEDS ORDERED: Morphine 4 MG/ML VIAL SLOW IVP SCH ×2 (00:45→04:15)
[2019-10-16] MEDS ORDERED: Ondansetron PF 4 MG/2 ML Vial SLOW IVP SCH (04:15)
[2019-10-16 06:31] LABS: #Basophils 0.1 thou/uL (0.0-0.2); #Eosinphils 0.3 thou/uL (0.0-0.7); #Lymphocytes 3.1 thou/uL (1.20-3.40); #Monocytes 0.8 thou/uL (0.11-0.59); #Neutrophils 6.4 thou/uL (1.40-6.50); %Basophils 0.8 % (0.0-1.0); %Eosinophils 2.7 % (0.0-10.0); %Lymphocytes 28.9 % (21.0-51.0); %Monocytes 7.5 % (0.0-10.0); Hemoglobin 11.6 g/dL (12.0-16.0); Mean Corpuscular HGB CONC 33.5 g/dL (32.0-36.0); Mean Corpuscular Hemoglobin 33.2 pg (27.0-31.0); Mean Corpuscular Volume 99.2 fL (78.0-98.0); Mean Platelet Volume 6.4 fL (7.4-10.4); Platelet Count 292 thou/uL (130-400); RBC Distribution Width 11.4 % (11.5-14.5); Red Blood Cell (RBC) Count 3.49 mill/uL (4.20-5.40); White Blood Cell (WBC) Count 10.6 thou/uL (4.8-10.8)
[2019-10-16 06:52] LABS: Anion Gap 13 mmol/L (10-20); BUN (Urea Nitrogen) 4 mg/dL (9.8-20.1); Calc. Creatinine Clearance 112 mL/min (70-130); Calcium 8.2 mg/dL (7.8-10.44); Carbon Dioxide 25 mmol/L (22-29); Chloride 95 mmol/L (98-107); Estimated GFR-MDRD Greater than 90; Glucose 80 mg/dL (70-105); Sodium 130 mmol/L (136-145)
[2019-10-16 06:58] LABS: Potassium 2.7 mmol/L (3.5-5.1)
[2019-10-16] MEDS ORDERED: Carvedilol 3.125 MG TAB PO SCH (08:00)
[2019-10-16] MEDS: Ondansetron PF 4 MG/2 ML Vial IVP PRN ×3 (08:43→22:25)
[2019-10-16] MEDS: Cyanocobalamin (Vitamin B-12) 1,000 MCG TAB PO SCH (08:49)
[2019-10-16] MEDS: Aspirin 81 mg Enteric Coated Tablet PO SCH (08:49)
[2019-10-16] MEDS: Amlodipine 10 MG TAB PO SCH (08:49)
[2019-10-16] MEDS: Fenofibrate 48 MG TAB PO SCH (08:50)
[2019-10-16] MEDS: Ubidecarenone 50 MG CAP PO SCH (08:50)
[2019-10-16] MEDS: Potassium Chloride 20 MEQ in Premix Bag 1 BAG IVPB SCH ×2 (08:59→12:32)
[2019-10-16] MEDS: Sodium Chloride 0.9% 1,000 ML IV SCH ×2 (08:59→21:45)
[2019-10-16] MEDS ORDERED: Iopamidol-370 76% 500 ML 1 ML ONE (10:18)
--- NOTE | 2019-10-16 12:07 | PDOC.HOSPP ---
- Subjective Encounter Date: 10/16/19 Encounter Time: 10:20 Subjective: she has 1 watery BM today, RUQ pain, last admission - LUQ pain, s/p cholecystectomy, LFT w.. high alk phos, CT ordered. - Objective Vital Signs & Weight: Vital Signs (12 hours) Temp Pulse Resp BP BP Pulse Ox 10/16/19 11:00 98.4 F 74 20 127/77 96 10/16/19 08:49 87 10/16/19 07:23 98.8 F 87 20 99/65 92 L 10/16/19 04:00 98.4 F 85 18 156/78 H 90 L Weight Weight 160 lb Result Diagrams: 10/16/19 06:19 10/16/19 06:19 Hospitalist ROS - Medication Medications: Active Medications Generic Name Dose Route Start Last Admin Trade Name Freq PRN Reason Stop Dose Admin Acetaminophen 650 mg 10/15/19 18:03 10/16/19 08:48 Tylenol PO 650 mg Q4H PRN Administration Headache/Fever/Mild Pain (1-3) Amlodipine Besylate 10 mg 10/16/19 09:00 10/16/19 08:49 Norvasc PO Not Given DAILY [facility] Aspirin 81 mg 10/16/19 09:00 10/16/19 08:49 Ecotrin PO 81 mg DAILY [facility] Administration Atorvastatin Calcium 20 mg 10/15/19 21:00 10/15/19 21:45 Lipitor PO Not Given HS [facility] Cholecalciferol 4,000 units 10/16/19 09:00 10/16/19 08:59 Vitamin D3 PO 4,000 units DAILY [facility] Administration Coenzyme Q10 200 mg 10/16/19 09:00 10/16/19 08:50 Coenzyme Q10 PO 200 mg DAILY [facility] Administration Cyanocobalamin 1,000 mcg 10/16/19 09:00 10/16/19 08:49 Vitamin B-12 PO 1,000 mcg DAILY [facility] Administration Dicyclomine HCl 20 mg 10/15/19 18:06 10/15/19 23:16 Bentyl PO 20 mg TIDPRN PRN Administration abdominal pain Fenofibrate 48 mg 10/16/19 09:00 10/16/19 08:50 Tricor PO 48 mg DAILY [facility] Administration Sodium Chloride 1,000 mls @ 75 mls/hr 10/15/19 18:15 10/16/19 08:59 Normal Saline 0.9% IV 1,000 mls .[id number] [facility] Administration Ondansetron HCl 4 mg 10/15/19 18:03 10/16/19 08:43 Zofran IVP 4 mg Q6H PRN Administration Nausea/Vomiting - Exam General Appearance: NAD, awake alert Eye: PERRL, anicteric sclera ENT: normocephalic atraumatic Neck: no carotid bruit Heart: RRR, no murmur, no gallops Respiratory: CTAB, normal chest expansion Gastrointestinal: soft, non-tender, non-distended, normal bowel sounds, no guarding, no rigidity Neurological: no focal deficits Hosp A/P - Plan Acute gastroenteritis --supportive care - cdiff and other stool study pending-- RUQ pain eleva. alk phos -- s/p remtoe cholecystectomy - unclear of the etiology for the pain-- has hx of overaian cyst? - US of UUQ on 08/02 -- no abnormality - fw on hepatic panel. -ordered CT of abd and GI cosnult. HTN - cw home regimen. Full code
[2019-10-16] MEDS: oxyCODONE/Acetaminophen 5 mg/325 mg Tablet PO PRN ×2 (12:32→18:19)
[2019-10-16 13:24] LABS: HBCM Index 0.08 S/CO (0-0.79); HBSAg Index 0.18 S/CO (0-0.99); Hep A IgM AB Non-Reactive (NonReactive); Hep A IgM S/CO 0.12 S/CO (0-0.79); Hep B Surf Ag Non-Reactive S/CO (NonReactive); Hep C IgG Ab Non-Reactive (NonReactive); Hep C Index 0.11 S/CO (0-0.79); Hepatitis B Core IgM Abs Non-Reactive (NonReactive); Thyroid Stimulating Hormone 2.4481 uIU/mL (0.35-4.94)
[2019-10-16 14:38] LABS: Potassium 3.5 mmol/L (3.5-5.1)
--- NOTE | 2019-10-16 15:14 | CT ---
CT abdomen with contrast: DATE: 10/16/2019 HISTORY: 58-year-old female with increasing abdominal pain. COMPARISON: 10/13/2019 FINDINGS: Cholecystectomy clips. Fatty liver. No solid or cystic hepatic lesion. Hepatomegaly. Multiple scatter ed mildly enlarged ed hepatis, retroperitoneal, and mesenteric, lymph nodes. Dilated common duct due to status post cholecystectomy. No portal vein thrombosis. No free fluid, small bowel dilation, o r any obvious acute process identified. Unremarkable pancreas. Atherosclerosis without aneurysm of abdominal aorta. Essentially normal kidneys, adrenals, and spleen. No pleural effusion or consolidati on at lung bases. No interval change. Visualized portions of the appendix is normal. Distal portion appendix outside of levels covered. IMPRESSION: 1. Hepatic steatosis. 2. Mild hepatomegaly. 3. Status post cholecystectomy. 4. Nonspecific finding of mildly enlarged ed hepatis, mesenteric, and retroperitoneal, lymph nodes . 5. No interval change since 3 days ago.
[2019-10-16] MEDS: Pantoprazole 40 MG VIAL IVP SCH (18:19)
[2019-10-16] MEDS: Atorvastatin Calcium 20 MG TAB PO SCH (21:45)
[2019-10-17] MEDS: oxyCODONE/Acetaminophen 5 mg/325 mg Tablet PO PRN ×4 (00:19→21:22)
--- NOTE | 2019-10-17 00:32 | CON ---
DATE OF CONSULTATION: 10/16/2019 REQUESTING PHYSICIAN: Dr. Bassett. REASON FOR CONSULTATION: Right upper quadrant pain, nausea and vomiting. HISTORY OF PRESENT ILLNESS: Michell Barnhart is a very pleasant 58-year-old woman, who is being followed in the [facility] by my colleague, Dr. Martinez Sequeira. She has a history of breast cancer, in remission for the past 19 years as well as remote cholecystectomy and hysterectomy. She has hypertension, has had several medication changes related to her antihypertensives in recent months. She was hospitalized this past July for abdominal pain, had an essentially negative workup except for showing ovarian cyst. She followed up with Dr. Sequeira in our clinic in August, at that time having more left upper quadrant pain and chronic mild nausea. He performed EGD and colonoscopy on 09/06/2019. The EGD showed diffuse nonerosive gastritis and she was started on a PPI. The colonoscopy showed 2 small tubular adenomas, which were both removed and was otherwise normal. Gastric biopsies were unremarkable and colon biopsies were negative for lymphocytic colitis. The polyps were adenomas. The patient subsequently had stool testing for C. difficile, ova and parasites, and fecal fat and this was all negative/normal. As of her last visit with Dr. Sequeira last month, she was doing quite a bit better with regard to abdominal pain on Protonix. The patient reports that she has continued on daily Protonix since that time, though her admission medication list does not list that, but at any rate, she was admitted to the hospital yesterday complaining of 5 days of recurrent symptoms of nausea, several episodes of nonbloody emesis, as well as diarrhea, characterized by loose and urgent stools at least 3 three times per day. There has been no blood. She has been having abdominal pain more in the right upper quadrant at this point. Labs show some stable and mild elevations in alkaline phosphatase and AST, but normal lipase. She did have some evidence of dehydration per her electrolytes on admission, better today. REVIEW OF SYSTEMS: Full review of systems including constitutional, head, eyes, ears, nose, throat, GI, , cardiovascular, respiratory, musculoskeletal, neurologic systems is negative except as noted in the HPI. PAST MEDICAL HISTORY: Arthritis; hypertension; hyperlipidemia; breast cancer, in remission for 19 years; fatty liver; cholecystectomy in 2013; x2; hysterectomy. ALLERGIES: NO KNOWN DRUG ALLERGIES. OUTPATIENT MEDICATIONS: Protonix 40 mg daily, Norvasc 10 mg daily, aspirin 81 mg daily, vitamin D3, Tricor 48 mg daily, coenzyme Q10 at 200 mg daily, Lipitor 20 mg daily, Coreg 3.125 mg twice daily, Bentyl 20 mg 3 times daily as needed. SOCIAL HISTORY: She does smoke. She reports about 2 packs every week. Alcohol use is occasional, but none recently. No drug use. She is . FAMILY HISTORY: Maternal grandmother had colon cancer. A first cousin at age 34 with colon cancer. PHYSICAL EXAMINATION: VITAL SIGNS: Temperature 98.0, pulse 81, blood pressure 114/75, 97% oxygen saturation on room air. GENERAL: A 58-year-old woman, lying in bed comfortably, in no distress. MENTAL STATUS: Alert and fully oriented. SKIN: No jaundice. No rashes were palpable. EYES: No scleral icterus. Extraocular movements intact. ENT: Mucous membranes moist. No oral lesions. LYMPH: No submandibular or supraclavicular lymphadenopathy. THYROID: Nontender to palpation. HEART: Regular rate and rhythm. LUNGS: Clear to auscultation bilaterally. ABDOMEN: Bowel sounds present. Soft. Mildly tender to the right upper quadrant, but no guarding or rebound tenderness. EXTREMITIES: No peripheral edema. VESSELS: Radial pulses 2+ bilaterally. NEURO: Cranial nerves 2-12 intact bilaterally. No focal deficits. LABORATORY STUDIES: Hemoglobin 11.6, WBC 10.6, platelets 292, MCV 99. Sodium 130; potassium 2.7, corrected to 3.5 today; BUN 4; creatinine 0.64; total bilirubin 0.7; alkaline phosphatase 264; AST 81; ALT 36; albumin 4.7; lipase 9. Urinalysis negative. Urine test negative. Viral hepatitis serologies negative. TSH 2.44. IMAGING STUDIES: CT of the abdomen demonstrates fatty liver, some post cholecystectomy biliary dilation. Normal-appearing pancreas, kidneys, and spleen. There is some mild nonspecific prominence of lymph nodes of the ed hepatis, retroperitoneal, and mesenteric lymph nodes. No change from prior CT just 3 days prior. ASSESSMENT/PLAN: 1. Chronic abdominal pain, right upper quadrant. 2. Nausea and vomiting, intermittent and chronic. 3. Fatty liver. 4. Chronic diarrhea. I spent some time with the patient reviewing her fairly extensive recent negative workup including endoscopy within the past couple of months. At this point, the etiology of her ongoing nausea is really unclear. She did seem to have significant improvement after initiation of PPI therapy in August, but says she has still been taking this medication and not doing as well now. I note she has not been on it since admission, so I am going to go ahead and restart pantoprazole 40 mg IV tonight. Also, stool studies have been reordered, so follow that result. I would not recommend repeating any endoscopic investigation right now. Her primary cellophane tester, Dr. Sequeira, will be around tomorrow for further evaluation. One possibility to consider would be a gastric emptying scan at some point, to rule out gastroparesis. Thank you for the consultation. Please call anytime with questions or concerns. Job ID: [id number]
[2019-10-17] MEDS: Ondansetron PF 4 MG/2 ML Vial IVP PRN ×3 (04:33→21:24)
[2019-10-17] MEDS: Fenofibrate 48 MG TAB PO SCH (08:20)
[2019-10-17] MEDS: Amlodipine 10 MG TAB PO SCH (08:20)
[2019-10-17] MEDS: Ubidecarenone 50 MG CAP PO SCH (08:20)
[2019-10-17] MEDS: Cyanocobalamin (Vitamin B-12) 1,000 MCG TAB PO SCH (08:21)
[2019-10-17] MEDS: Aspirin 81 mg Enteric Coated Tablet PO SCH (08:21)
[2019-10-17] MEDS: Sodium Chloride 0.9% 1,000 ML IV SCH ×2 (08:21→23:46)
[2019-10-17 10:54] LABS: Anion Gap 14 mmol/L (10-20); BUN (Urea Nitrogen) Less than 4 mg/dL (9.8-20.1); Calc. Creatinine Clearance 116 mL/min (70-130); Calcium 8.9 mg/dL (7.8-10.44); Carbon Dioxide 24 mmol/L (22-29); Chloride 100 mmol/L (98-107); Estimated GFR-MDRD Greater than 90; Glucose 76 mg/dL (70-105); Potassium 3.5 mmol/L (3.5-5.1); Sodium 134 mmol/L (136-145)
[2019-10-17] MEDS ORDERED: ALPRAZolam 0.5 MG TAB PO PRN (11:05)
--- NOTE | 2019-10-17 12:37 | PDOC.HOSPP ---
- Subjective Encounter Date: 10/17/19 Encounter Time: 09:30 Subjective: no BM today, still has pain. talk to her GI, DR. Awan, plan for MRCP. hep panel pending. - Objective Vital Signs & Weight: Vital Signs (12 hours) Temp Pulse Resp BP BP Pulse Ox 10/17/19 08:20 82 137/79 10/17/19 07:36 98.0 F 82 20 137/79 96 Weight Admit Weight 160 lb Weight 160 lb Result Diagrams: 10/16/19 06:19 10/17/19 10:18 Additional Labs: Accuchecks 10/17/19 04:41 POC Glucose 123 H Hospitalist ROS - Medication Medications: Active Medications Generic Name Dose Route Start Last Admin Trade Name Freq PRN Reason Stop Dose Admin Acetaminophen 650 mg 10/15/19 18:03 10/16/19 08:48 Tylenol PO 650 mg Q4H PRN Administration Headache/Fever/Mild Pain (1-3) Amlodipine Besylate 10 mg 10/16/19 09:00 10/17/19 08:20 Norvasc PO 10 mg DAILY [facility] Administration Aspirin 81 mg 10/16/19 09:00 10/17/19 08:21 Ecotrin PO 81 mg DAILY [facility] Administration Atorvastatin Calcium 20 mg 10/15/19 21:00 10/16/19 21:45 Lipitor PO 20 mg HS [facility] Administration Cholecalciferol 4,000 units 10/16/19 09:00 10/17/19 08:21 Vitamin D3 PO 4,000 units DAILY [facility] Administration Coenzyme Q10 200 mg 10/16/19 09:00 10/17/19 08:20 Coenzyme Q10 PO 200 mg DAILY [facility] Administration Cyanocobalamin 1,000 mcg 10/16/19 09:00 10/17/19 08:21 Vitamin B-12 PO 1,000 mcg DAILY [facility] Administration Dicyclomine HCl 20 mg 10/15/19 18:06 10/15/19 23:16 Bentyl PO 20 mg TIDPRN PRN Administration abdominal pain Fenofibrate 48 mg 10/16/19 09:00 10/17/19 08:20 Tricor PO 48 mg DAILY [facility] Administration Sodium Chloride 1,000 mls @ 75 mls/hr 10/15/19 18:15 10/17/19 08:21 Normal Saline 0.9% IV 1,000 mls .[id number] [facility] Administration Ondansetron HCl 4 mg 10/15/19 18:03 10/17/19 04:33 Zofran IVP 4 mg Q6H PRN Administration Nausea/Vomiting Pantoprazole Sodium 40 mg 10/16/19 18:00 10/16/19 18:19 Protonix IVP 40 mg 1800 [facility] Administration - Exam General Appearance: NAD, awake alert Eye: PERRL ENT: normocephalic atraumatic Neck: supple Heart: RRR Respiratory: CTAB, normal chest expansion Gastrointestinal: soft, non-tender, non-distended, normal bowel sounds, no hepatomegaly Hosp A/P - Plan Acute gastroenteritis --supportive care - cdiff and other stool study pending-- RUQ pain eleva. alk phos -- s/p remtoe cholecystectomy - unclear of the etiology for the pain-- has hx of overaian cyst? - US of UUQ on 08/02 -- no abnormality - fw on hepatic panel. -CT of abd--hepatic steatosis and Dr. Awan will fw with us - Fw on MRCP rpt HTN - cw home regimen. -adequately controlled. talk to her GI, DR. Awan, plan for MRCP. hep panel pending. Full code
--- NOTE | 2019-10-17 12:57 | PRG ---
DATE OF SERVICE: 10/17/2019 SUBJECTIVE: The patient reports having recurrent right upper quadrant pain with radiation to the back. Pain is episodic and can get rated anywhere between 5 to 10/10. She still has ongoing nausea with some dry heaving. There is no diarrhea today. PHYSICAL EXAMINATION: VITAL SIGNS: Temperature is 98.0, blood pressure 137/79, pulse of 82. GENERAL: She is alert, sitting up, in no distress. HEENT: Shows anicteric sclerae. Oropharynx is moist. CV: Shows normal S1 and S2. Regular rate and rhythm. CHEST: Shows breath sounds. ABDOMEN: Protuberant, but soft, essentially nontender to palpation. There is no visible rash. She has active bowel sounds. EXTREMITIES: Show no edema. LABORATORY DATA: Sodium 130, potassium 3.5, creatinine 0.64, BUN of 4, bilirubin on admission was 0.7, AST of 81, ALT 36, alkaline phosphatase 264. ASSESSMENT: 1. Recurrent right upper quadrant pain with radiation to the back as the predominant complaint today along with her recurrent nausea and vomiting. Abdominal CT was normal except for fatty liver. Her liver profile showed disproportionate elevation of alkaline phosphatase to her transaminase. She has had previous cholecystectomy for cholelithiasis. At this point, choledocholithiasis needs to be excluded. 2. Recurrent nausea and vomiting, unknown etiology. Could be related to biliary issue. Her previous GI workup including esophagogastroduodenoscopy/CT/ultrasound were unremarkable. 3. Chronic recurrent diarrhea, negative stool evaluation and no evidence for microscopic colitis on colonoscopy. RECOMMENDATION: 1. We will proceed with MRCP at this point to exclude any choledocholithiasis. 2. If negative count, we will consider nuclear gastric emptying scan. Job ID: [id number]
[2019-10-17] MEDS: Pantoprazole 40 MG VIAL IVP SCH (18:01)
--- NOTE | 2019-10-17 18:39 | MRI ---
MRI OF THE ABDOMEN WITHOUT CONTRAST: 10/17/19 HISTORY: Right upper quadrant pain. Evaluate for choledocholithiasis. COMPARISON: CT examination 10/16/2019. FINDINGS: MRI of the abdomen performed without intravenous contrast. 3D rendering provided for MRCP. No pleural effusion. No pericardial effusion. Spleen is normal. There is diffuse moderate hepatic steatosis with hepatic fat fracture 22.1% and hepatic fat percentag e 20.9%. No hydronephrosis. Background marrow signal of the spine is normal. No ascites. There are no dilated loops of bowel in the upper abdomen. The flow voids are maintained. No choledocholithiasis. Prior cholecystectomy. No dilatation of the common bile duct which measures u p to 7 mm, reservoir effect. No significant intrahepatic biliary dilatation. The portal vein flow void is maintained. No abnormal restricted diffusion of the liver. The craniocau manoj length of the liver is 21 cm. No pancreaticobiliary maljunction. IMPRESSION: 1. No choledocholithiasis. 2. No intrahepatic or extrahepatic biliary dilatation. 3. No pancreaticobiliary maljunction. 4. No acute inflammatory process in the abdomen. 5. Hepatomegaly with diffuse hepatic steatosis with fat fraction and fat percentage as described above. POS: HOME
[2019-10-17] MEDS: Atorvastatin Calcium 20 MG TAB PO SCH (20:10)
[2019-10-18] MEDS: Ondansetron PF 4 MG/2 ML Vial IVP PRN ×4 (03:34→22:19)
[2019-10-18] MEDS: oxyCODONE/Acetaminophen 5 mg/325 mg Tablet PO PRN ×4 (03:39→22:19)
[2019-10-18 05:58] LABS: #Basophils 0.1 thou/uL (0.0-0.2); #Eosinphils 0.3 thou/uL (0.0-0.7); #Lymphocytes 2.7 thou/uL (1.20-3.40); #Monocytes 0.5 thou/uL (0.11-0.59); #Neutrophils 3.8 thou/uL (1.40-6.50); %Basophils 1.2 % (0.0-1.0); %Lymphocytes 36.1 % (21.0-51.0); %Monocytes 7.1 % (0.0-10.0); %Neutrophils 51.6 % (42.0-75.0); Hemoglobin 11.4 g/dL (12.0-16.0); Mean Corpuscular HGB CONC 32.9 g/dL (32.0-36.0); Mean Platelet Volume 6.9 fL (7.4-10.4); Platelet Count 312 thou/uL (130-400); RBC Distribution Width 11.3 % (11.5-14.5); Red Blood Cell (RBC) Count 3.45 mill/uL (4.20-5.40); White Blood Cell (WBC) Count 7.4 thou/uL (4.8-10.8)
[2019-10-18 06:50] LABS: ALT (SGPT) 32 U/L (8-55); AST (SGOT) 46 U/L (5-34); Albumin 3.6 g/dL (3.5-5.0); Alkaline Phosphatase 180 U/L (40-110); Anion Gap 13 mmol/L (10-20); BUN (Urea Nitrogen) Less than 4 mg/dL (9.8-20.1); Bilirubin, Total 0.4 mg/dL (0.2-1.2); Calc. Creatinine Clearance 116 mL/min (70-130); Calcium 8.4 mg/dL (7.8-10.44); Carbon Dioxide 25 mmol/L (22-29); Chloride 100 mmol/L (98-107); Estimated GFR-MDRD Greater than 90; Globulin 2.6 g/dL (2.4-3.5); Glucose 84 mg/dL (70-105); Magnesium 1.4 mg/dL (1.6-2.6); Potassium 3.3 mmol/L (3.5-5.1); Protein, Total 6.2 g/dL (6.0-8.3); Sodium 135 mmol/L (136-145)
[2019-10-18] MEDS ORDERED: Potassium Citrate 10 MEQ TAB PO SCH (10:00)
--- NOTE | 2019-10-18 14:15 | NM ---
NUCLEAR MEDICINE GASTRIC EMPTYING SCAN: HISTORY: Persistent nausea and vomiting. RADIOPHARMACEUTICAL: 2 mCi Technetium sulfur colloid administered orally in scrambled eggs. FINDINGS: There is 68% emptying of the ingested gastric contents at 1 hour, 81% emptying at 2 hours, 85% emptyi ng at 3 hours, and 100% emptying at 4 hours. The calculated gastric emptying half-time measures 46 minutes (normal 45-110 minutes). IMPRESSION: Normal exam. POS: [facility]
[2019-10-18] MEDS: Aspirin 81 mg Enteric Coated Tablet PO SCH (14:44)
[2019-10-18] MEDS: Cyanocobalamin (Vitamin B-12) 1,000 MCG TAB PO SCH (14:45)
[2019-10-18] MEDS: Amlodipine 10 MG TAB PO SCH (14:45)
[2019-10-18] MEDS: Fenofibrate 48 MG TAB PO SCH (14:54)
[2019-10-18] MEDS: Ubidecarenone 50 MG CAP PO SCH (14:54)
--- NOTE | 2019-10-18 16:23 | PDOC.HOSPP ---
- Subjective Encounter Date: 10/18/19 Encounter Time: 20:10 Subjective: came back from G[facility] study, on diet now. both studies were seem to be non-dx. - Objective Vital Signs & Weight: Vital Signs (12 hours) Temp Pulse Resp BP BP Pulse Ox 10/18/19 14:45 85 151/84 H 10/18/19 07:26 98.2 F 85 16 125/84 95 Weight Admit Weight 160 lb Weight 160 lb Result Diagrams: 10/18/19 05:20 10/18/19 05:20 Hospitalist ROS - Medication Medications: Active Medications Generic Name Dose Route Start Last Admin Trade Name Freq PRN Reason Stop Dose Admin Acetaminophen 650 mg 10/15/19 18:03 10/16/19 08:48 Tylenol PO 650 mg Q4H PRN Administration Headache/Fever/Mild Pain (1-3) Alprazolam 0.5 mg 10/17/19 11:05 10/17/19 13:43 Xanax PO 0.5 mg BIDPRN PRN Administration Anxiety Amlodipine Besylate 10 mg 10/16/19 09:00 10/18/19 14:45 Norvasc PO 10 mg DAILY STUART Administration Aspirin 81 mg 10/16/19 09:00 10/18/19 14:44 Ecotrin PO 81 mg DAILY STUART Administration Atorvastatin Calcium 20 mg 10/15/19 21:00 10/17/19 20:10 Lipitor PO 20 mg HS STUART Administration Cholecalciferol 4,000 units 10/16/19 09:00 10/18/19 14:44 Vitamin D3 PO 4,000 units DAILY STUART Administration Coenzyme Q10 200 mg 10/16/19 09:00 10/18/19 14:54 Coenzyme Q10 PO 200 mg DAILY STUART Administration Cyanocobalamin 1,000 mcg 10/16/19 09:00 10/18/19 14:45 Vitamin B-12 PO 1,000 mcg DAILY STUART Administration Dicyclomine HCl 20 mg 10/15/19 18:06 10/15/19 23:16 Bentyl PO 20 mg TIDPRN PRN Administration abdominal pain Fenofibrate 48 mg 10/16/19 09:00 10/18/19 14:54 Tricor PO 48 mg DAILY STUART Administration Sodium Chloride 1,000 mls @ 75 mls/hr 10/15/19 18:15 10/17/19 23:46 Normal Saline 0.9% IV 1,000 mls .[id number] STUART Administration Ondansetron HCl 4 mg 10/15/19 18:03 10/18/19 15:15 Zofran IVP 4 mg Q6H PRN Administration Nausea/Vomiting Oxycodone/Acetaminophen 1 tab 10/17/19 11:19 10/18/19 15:14 Percocet 5/325 PO 1 tab Q4H PRN Administration Mild-Moderate Pain (1-5) Pantoprazole Sodium 40 mg 10/16/19 18:00 10/17/19 18:01 Protonix IVP 40 mg 1800 STUART Administration - Exam General Appearance: NAD, awake alert Eye: PERRL ENT: normocephalic atraumatic Neck: supple Heart: RRR Respiratory: CTAB, normal chest expansion Gastrointestinal: soft, non-tender, non-distended, normal bowel sounds Neurological: no focal deficits Psychiatric: normal affect, A&O x 3 Hosp A/P - Plan Acute gastroenteritis --supportive care - cdiff and other stool study pending-- RUQ pain [place]. alk phos -- s/p remtoe cholecystectomy - unclear of the etiology for the pain-- has hx of overaian cyst? - US of UUQ on 08/02 -- no abnormality - fw on hepatic panel. -CT of abd--hepatic steatosis and Dr. Awan will fw with us - MRCP - steatohepatitis and hepatomegaly -gastric emptying study -- normal. - started on diet. HTN - cw home regimen. -adequately controlled. Full code
[2019-10-18] MEDS: Pantoprazole 40 MG VIAL IVP SCH (17:24)
[2019-10-18] MEDS: Sodium Chloride 0.9% 1,000 ML IV SCH (17:27)
[2019-10-18] MEDS: Atorvastatin Calcium 20 MG TAB PO SCH (20:17)
--- NOTE | 2019-10-18 20:55 | PRG ---
DATE OF SERVICE: 10/18/2019 SUBJECTIVE: Mrs. Barnhart still has some nausea when her Zofran wears off, a little bit of pain. She continues to take the Zofran and the p.r.n. Percocet. States the vomiting and everything is much better than when she came to the hospital. Her diarrhea is improved. Gastric emptying scan was normal. OBJECTIVE: VITAL SIGNS: Temperature is 98.2, pulse 85, blood pressure 151/84. LUNGS: Clear. ABDOMEN: Soft, nontender. There is point tenderness in the right upper quadrant. There is no rebound. There is no guarding. LABORATORY DATA: White count is 7.5, hemoglobin 11.1, MCV 101, platelet count is 312. Magnesium 1.4. Bilirubin 0.4, AST 46, ALT 32, alkaline phosphatase 180. Hep A, B, C serologies negative. ASSESSMENT: 1. Acute nausea, vomiting, diarrhea. This may have been viral. It is resolving. 2. Chronic issues with nausea, abdominal pain, and diarrhea with extensive endoscopic workup recently negative. 3. Acute stool studies negative for inflammation or infection at this visit. 4. Elevated MCV and AST make one wonder about alcohol use or misuse. The alkaline phosphatase elevation presumptively is biliary origin or from her fatty liver. RECOMMENDATIONS: Fractionate alkaline phosphatase. Check GGT. We will check an TASHIA and a smooth muscle antibody as well as an antimitochondrial antibody if this has not been done in the past. I will check her labs from our computer when I get home and see if that has been evaluated for in the past. Otherwise, we will check a B12 and a folate with her elevated MCV. Job ID: [id number]
[2019-10-18] MEDS ORDERED: Melatonin 3 MG TAB PO PRN (23:37)
[2019-10-18] MEDS ORDERED: Melatonin 3 MG TAB PO SCH (23:45)
[2019-10-19] MEDS: oxyCODONE/Acetaminophen 5 mg/325 mg Tablet PO PRN ×4 (04:43→22:30)
[2019-10-19] MEDS: Ondansetron PF 4 MG/2 ML Vial IVP PRN ×3 (04:43→17:53)
[2019-10-19] MEDS: Sodium Chloride 0.9% 1,000 ML IV SCH ×2 (09:17→20:32)
[2019-10-19] MEDS: Aspirin 81 mg Enteric Coated Tablet PO SCH (09:18)
[2019-10-19] MEDS: Amlodipine 10 MG TAB PO SCH (09:18)
[2019-10-19] MEDS: Cyanocobalamin (Vitamin B-12) 1,000 MCG TAB PO SCH (09:18)
[2019-10-19] MEDS: Ubidecarenone 50 MG CAP PO SCH (09:18)
[2019-10-19] MEDS: Fenofibrate 48 MG TAB PO SCH (09:19)
--- NOTE | 2019-10-19 11:45 | PDOC.HOSPP ---
- Subjective Encounter Date: 10/19/19 Encounter Time: 09:40 Subjective: pt denies any abd..discomfort. more labs ordered. some of them sent out labs. results may not be back until tuesday. pt agreed to stay until results are reviewed. - Objective Vital Signs & Weight: Vital Signs (12 hours) Temp Pulse Resp BP Pulse Ox 10/19/19 09:18 78 10/19/19 08:15 98.8 F 78 16 123/77 93 L 10/19/19 08:00 93 L Weight Admit Weight 160 lb Weight 160 lb Result Diagrams: 10/18/19 05:20 10/18/19 05:20 Hospitalist ROS - Medication Medications: Active Medications Generic Name Dose Route Start Last Admin Trade Name Freq PRN Reason Stop Dose Admin Acetaminophen 650 mg 10/15/19 18:03 10/16/19 08:48 Tylenol PO 650 mg Q4H PRN Administration Headache/Fever/Mild Pain (1-3) Alprazolam 0.5 mg 10/17/19 11:05 10/17/19 13:43 Xanax PO 0.5 mg BIDPRN PRN Administration Anxiety Amlodipine Besylate 10 mg 10/16/19 09:00 10/19/19 09:18 Norvasc PO 10 mg DAILY STUART Administration Aspirin 81 mg 10/16/19 09:00 10/19/19 09:18 Ecotrin PO 81 mg DAILY STUART Administration Atorvastatin Calcium 20 mg 10/15/19 21:00 10/18/19 20:17 Lipitor PO 20 mg HS STUART Administration Cholecalciferol 4,000 units 10/16/19 09:00 10/19/19 09:18 Vitamin D3 PO 4,000 units DAILY STUART Administration Coenzyme Q10 200 mg 10/16/19 09:00 10/19/19 09:18 Coenzyme Q10 PO 200 mg DAILY STUART Administration Cyanocobalamin 1,000 mcg 10/16/19 09:00 10/19/19 09:18 Vitamin B-12 PO 1,000 mcg DAILY STUART Administration Dicyclomine HCl 20 mg 10/15/19 18:06 10/15/19 23:16 Bentyl PO 20 mg TIDPRN PRN Administration abdominal pain Fenofibrate 48 mg 10/16/19 09:00 10/19/19 09:19 Tricor PO 48 mg DAILY STUART Administration Sodium Chloride 1,000 mls @ 75 mls/hr 10/15/19 18:15 10/19/19 09:17 Normal Saline 0.9% IV 1,000 mls .[id number] STUART Administration Ondansetron HCl 4 mg 10/15/19 18:03 10/19/19 11:15 Zofran IVP 4 mg Q6H PRN Administration Nausea/Vomiting Oxycodone/Acetaminophen 1 tab 10/17/19 11:19 10/19/19 11:14 Percocet 5/325 PO 1 tab Q4H PRN Administration Mild-Moderate Pain (1-5) Pantoprazole Sodium 40 mg 10/16/19 18:00 10/18/19 17:24 Protonix IVP 40 mg 1800 STUART Administration - Exam General Appearance: NAD, awake alert Eye: PERRL ENT: normocephalic atraumatic Neck: supple Heart: RRR Respiratory: CTAB, normal chest expansion Gastrointestinal: soft, normal bowel sounds Neurological: no focal deficits Psychiatric: normal affect, A&O x 3 Hosp A/P - Plan Acute gastroenteritis --supportive care - cdiff not tested as her BM soft. RUQ pain [place]. alk phos --biilary vs.. steatosis vs..other such as autoimm d/o for which labs are drawn for TASHIA, anti-smooth M. AB -- s/p remtoe cholecystectomy - unclear of the etiology for the pain-- has hx of ovarian cyst? - US of RUQ on 08/02 -- no abnormality - fw on hepatic panel.----->-Hep A, B & C neg. -Lipase level insig. -GGT at 634---reflective of biliary nature vs..? pt does not drink heavily for etiology of GGT elevation -CT of abd--hepatic steatosis - MRCP - steatohepatitis and hepatomegaly -gastric emptying study -- normal. - started on diet. Macrocytosis -folate nl range, B12 -- upper limit.--so will hold her B12 supplement HTN - cw home regimen. -adequately controlled. follow up on results for TASHIA, anti-smooth M. AB. Full code
[2019-10-19] MEDS ORDERED: Potassium Chloride 20 MEQ TAB PO SCH (12:00)
--- NOTE | 2019-10-19 17:34 | PRG ---
DATE OF SERVICE: 10/19/2019 SUBJECTIVE: Ms. Barnhart's pain is markedly diminished. She has had no fever. OBJECTIVE: VITAL SIGNS: Temperature is 98, pulse 78, respirations 16, blood pressure GENERAL: She is walking in the halls. LUNGS: Clear. HEART: Regular rate and rhythm. ABDOMEN: Soft. Mild tenderness in the right ribs, but no rash. LABORATORY DATA: White count 7.4, down from 14 on admission; hemoglobin is 11.4, platelet count 312, MCV 101. B12 and folate normal. GGT was 634, AST 46, ALT 32, alkaline phosphatase 180. MRCP negative. ASSESSMENT AND PLAN: 1. Hepatitis, possibly related to alcohol use. Other workup is pending. Viral hepatitis has been negative. 2. Admission with acute nausea, vomiting, and diarrhea. I think from that standpoint, she is markedly better. I think she can go home. She can follow up with Dr. Sequeira in the outpatient setting. There is no role for ERCP at this time with normal MRCP. Workup for autoimmune and other liver disease is pending with those would not cause the symptoms she is having, and she can again see Dr. Sequeira in the office for that. We will sign off and arrange further followup in the outpatient setting. Job ID: [id number]
[2019-10-19] MEDS: Pantoprazole 40 MG VIAL IVP SCH (17:53)
[2019-10-19] MEDS: Atorvastatin Calcium 20 MG TAB PO SCH (20:32)
[2019-10-20] MEDS: Ondansetron PF 4 MG/2 ML Vial IVP PRN ×3 (00:25→15:26)
[2019-10-20] MEDS: oxyCODONE/Acetaminophen 5 mg/325 mg Tablet PO PRN ×4 (03:25→17:25)
[2019-10-20] MEDS: Ubidecarenone 50 MG CAP PO SCH (08:37)
[2019-10-20] MEDS: Fenofibrate 48 MG TAB PO SCH (08:38)
[2019-10-20] MEDS: Amlodipine 10 MG TAB PO SCH (08:38)
[2019-10-20] MEDS: Aspirin 81 mg Enteric Coated Tablet PO SCH (08:38)
[2019-10-20] MEDS: Sodium Chloride 0.9% 1,000 ML IV SCH ×2 (08:48→10:12)
[2019-10-20 12:13] LABS: Hemoglobin 11.9 g/dL (12.0-16.0); Mean Corpuscular HGB CONC 32.8 g/dL (32.0-36.0); Mean Corpuscular Hemoglobin 33.3 pg (27.0-31.0); Mean Platelet Volume 6.7 fL (7.4-10.4); Platelet Count 338 thou/uL (130-400); RBC Distribution Width 11.4 % (11.5-14.5); Red Blood Cell (RBC) Count 3.58 mill/uL (4.20-5.40); White Blood Cell (WBC) Count 8.4 thou/uL (4.8-10.8)
[2019-10-20 12:28] LABS: ALT (SGPT) 23 U/L (8-55); AST (SGOT) 34 U/L (5-34); Albumin 3.9 g/dL (3.5-5.0); Alkaline Phosphatase 195 U/L (40-110); Anion Gap 14 mmol/L (10-20); BUN (Urea Nitrogen) Less than 4 mg/dL (9.8-20.1); Bilirubin, Total 0.4 mg/dL (0.2-1.2); Calc. Creatinine Clearance 106 mL/min (70-130); Calcium 9.1 mg/dL (7.8-10.44); Carbon Dioxide 25 mmol/L (22-29); Chloride 97 mmol/L (98-107); Estimated GFR-MDRD 90; Globulin 2.8 g/dL (2.4-3.5); Glucose 97 mg/dL (70-105); Magnesium 1.4 mg/dL (1.6-2.6); Potassium 3.9 mmol/L (3.5-5.1); Protein, Total 6.7 g/dL (6.0-8.3); Sodium 132 mmol/L (136-145)
[2019-10-20] MEDS ORDERED: Magnesium 2 GM/50 ML 2 GM in Premix Bag 1 BAG IVPB SCH (13:00)
--- NOTE | 2019-10-20 13:17 | PRG ---
DATE OF SERVICE: 10/20/2019 SUBJECTIVE: Ms. Barnhart is eating a regular diet. She has a little abdominal discomfort after she ate. She states the food is really greasy here. OBJECTIVE: VITAL SIGNS: Temperature is 98.3, pulse 87, blood pressure 128/72. ABDOMEN: Soft and nontender. LABORATORY DATA: White count 8.4, hemoglobin 11.9, MCV 101, platelet count is 338. Sodium 132, potassium 3.9, BUN and creatinine are 4 and 0.6, magnesium 1.4. AST and ALT are now normal at 34 and 23, down from 81 and 36 on admission. Alkaline phosphatase is 195. B12 and folate were normal. ASSESSMENT AND PLAN: 1. Mild macrocytic anemia. Negative esophagogastroduodenoscopy. Normal B12 and folate. She does drink a moderate to heavy amount of alcohol and this may be related to that. 2. Abdominal pain of unclear etiology. Esophagogastroduodenoscopy was nondiagnostic. CT of the abdomen on admission was negative. Magnetic resonance cholangiopancreatography was negative. 3. Chronic elevation of AST and alkaline phosphatase with some hepatic steatosis on imaging and mild hepatomegaly. Further studies pending. 4. Mild nonspecific enlarged ed hepatis lymph nodes. These were not felt to be malignant by Radiology. Also, she had a normal gastric scan recommendation. Avoid alcohol. Low carb diet. 5. Follow up with Dr. Sequeira in 1 to 2 weeks to review hematologic workup. Job ID: [id number]
[2019-10-20 17:34] VITALS: BP 127/78; TEMP 98.1
--- NOTE | 2019-10-21 02:08 | DIS ---
DATE OF ADMISSION: 10/15/2019 DATE OF DISCHARGE: 10/20/2019 DISCHARGE DIAGNOSES: 1. Abdominal pain possibly secondary to alcoholic hepatitis vs gastritis 2. Transaminitis 3. Macrocytic anemia 4. Hyponatremia 5. Hypomagnesemia 6. Elevated alkaline phosphatase. CONSULTATIONS: Dr. Paolo Bansal with GI. PROCEDURES: Gastric emptying study 10/17. BRIEF HISTORY OF PRESENT ILLNESS: This is a 58-year-old female with a history of hypertension, hyperlipidemia, breast cancer, who presented with intractable nausea, vomiting, and diarrhea. The patient reported that she cooks food at home and does not eat outside. She had no fevers or chills. She had a recent EGD and colonoscopy done as an outpatient, which showed gastritis and a colonoscopy which showed 2 small tubular adenomas. Upon presentation to the ER, she was noted to have a normal lipase with an AST of 81, ALT of 36, and alk-phos of 264. She had a CT scan of her abdomen done in the emergency room, which showed mild hepatomegaly and hepatic steatosis as well as some mildly enlarged lymph nodes in the ed hepaticus, mesenteric and retroperitoneal area. She was admitted for further workup. HOSPITAL COURSE: Abdominal pain secondary to mild alcoholic hepatitis versus gastritis: The patient was seen by GI in consultation. She was initially resumed on Protonix due to concern for gastritis. MRI of her abdomen showed no evidence of intrahepatic or extrahepatic biliary dilation, buthepatomegaly with diffuse fatty liver. Gastric emptying study done on the was normal. The patient was managed conservatively with IV hydration. She was also started on dicyclomine p.r.n. and Percocet p.r.n for pain. She tolerated a regular diet on the day of discharge. The patient reported no improvement in her abdominal pain with Bentyl. She will be discharged with Percocet for 2-3 more days until she sees her PCP. [place] [employer] was checked and her last prescription was for tramadol in September. The patient states that the tramadol was not helping her. She also reports that she cannot take NSAIDs due to gastritis. She will follow up with Dr. Sequeira from GI in 2 weeks. The patient was advised to stop drinking alcohol especially if she is taking percocet. She reports no interest in restarting and will quit on discharge. Diarrhea: The patient had testing for C. diff, Campylobacter, and Shigella, which came back negative. Her stool lactoferrin was normal and her stool culture was normal. Diarrhea resolved on discharge. Transaminitis: The patient had elevated LFTS on admission. Hepatitis serology was negative. Autoimmune testing is pending at this time. She was advised to avoid alcohol on discharge. The patient states that she will stop drinking alcohol because she is trying to lose weight and has no interest in restarting. Macrocytic anemia: The patient had a hemoglobin of 11.9, and MCV of 101. She had a TSH which was normal. Folate and vitamin B12 were also normal. This may be secondary to her alcohol use. This can be monitored further as an outpatient. Hypomagnesemia: The patient had a magnesium level of 1.4. She was given 2 g of IV mag on the day of discharge. She was advised to have her magnesium levels rechecked in a week. Hyponatremia: The patient has a mild decreased sodium of 132. She is now starting to tolerate a regular diet. This can be rechecked in a week with her PCP. DISCHARGE PHYSICAL EXAMINATION: VITAL SIGNS: Temperature 98.3, heart rate 87, respiratory rate 19, O2 saturation 98% on room air, blood pressure 128/72. GENERAL: The patient is alert, awake, oriented x3. CVS: Regular rate and rhythm with no murmurs, rubs, or gallops. LUNGS: Clear to auscultation bilaterally. ABDOMEN: The patient has right upper quadrant tenderness. She is overweight. No rebound, guarding, or rigidity. EXTREMITIES: No edema. LABORATORY STUDIES: CBC 10/19: White count 8.4, hemoglobin 11.9, hematocrit 36.2, MCV 101, platelet count 338. BMP 10/19: Sodium is 132, chloride 97, BUN less than 4, creatinine 0.68. LFTs: AST 34, ALT 23, alkaline phosphatase 195. Vitamin B12: 1393. Folate: 13.7. TSH: 2.4. GGT: 634. UA 10/14: Shows 200 protein, trace ketones. Urine test: Negative. Hepatitis serology 10/15: Nonreactive. IMAGING: CT abdomen with contrast 10/15: Hepatic steatosis. Mild hepatomegaly. Mildly enlarged ed hepatis, mesenteric and retroperitoneal lymph node. MRI abdomen 10/16: No choledocholithiasis. No intrahepatic or extrahepatic biliary dilation. No pancreaticobiliary maljunction. No acute inflammatory process. Hepatomegaly with diffuse hepatic steatosis. Gastric emptying scan 10/17: Was normal. DISCHARGE CONDITION: Stable. ACTIVITY: As tolerated. DIET: Regular diet. DISCHARGE MEDICATIONS: Discontinued medications: Reglan. New prescriptions: Oxycodone/acetaminophen 5 mg/325 mg take one tablet p.o. q.4 hours, quantity 18 tablets. All other home medications were resumed. DISCHARGE INSTRUCTIONS: The patient should follow up with her PCP in a week with regard to her anemia and her hyponatremia: She should follow up with Dr. Sequeira from GI in 2 weeks for further workup of her abdominal pain. She should avoid alcohol. Consider abdominal ultrasound as an outpatient. Follow up fatty liver. Job ID: [id number] MTDD
[2019-10-21 19:13] LABS: Alkaline Phosphastase Total 181 IU/L (39-117); Bone 27 % (14-68); Intestinal 0 % (0-18); Liver 73 % (18-85)
[2019-10-23 08:13] LABS: Norovirus GI Negative (Negative); Norovirus GII Negative (Negative)
[2019-10-23 16:00] LABS: ANA Symphony (Qualitative) Negative (Negative); ANA Symphony (Quantitative) 0.2 Ratio (< 0.7 Negative)
[2019-10-23 16:38] LABS: Smooth Muscle Total ABS 7 Units (0-19)
== END 2019-10-20 17:47 | disposition home or self-care (01) | DRG 433 ==
LOC: ERS 13:32 → OBSVTOIN 18:00 → T4-A 18:00
PROVIDERS: ADMIT Internal Medicine; ATTEND Internal Medicine
DX: K70.10 Alcoholic hepatitis without ascites (principal); E87.1 Hypo-osmolality and hyponatremia; K29.70 Gastritis, unspecified, without bleeding; R74.0 Nonspecific elevation of levels of transaminase and lactic acid dehydrogenase [LDH]; D53.9 Nutritional anemia, unspecified; E83.42 Hypomagnesemia; R79.89 Other specified abnormal findings of blood chemistry; E78.5 Hyperlipidemia, unspecified; I10 Essential (primary) hypertension; K52.9 Noninfective gastroenteritis and colitis, unspecified; M19.90 Unspecified osteoarthritis, unspecified site; K76.0 Fatty (change of) liver, not elsewhere classified; D75.89 Other specified diseases of blood and blood-forming organs; R93.2 Abnormal findings on diagnostic imaging of liver and biliary tract; Z85.3 Personal history of malignant neoplasm of breast; Z90.49 Acquired absence of other specified parts of digestive tract; Z90.710 Acquired absence of both cervix and uterus; Z79.899 Other long term (current) drug therapy; Z79.82 Long term (current) use of aspirin
CPT/HCPCS: 36415; 36416; 74160; 74181; 78264; 80048; 80053; 80074; 81003; 81015; 81025; 82607; 82746; 82977; 83516; 83630; 83690; 83735; 84075; 84443; 85025; 85027; 86038; 86225; 87045; 87046; 87324; 87427; 87449; 87798; 96365; 96372; 96375; 96376; 99284; A9541; C9113; J0500; J2270; J2405; J2765; J3475; J3480; Q9967

== ENCOUNTER 2020-04-04 16:17 | Observation (INO) | payer BC, OTHER ==
[2020-04-04 20:22] VITALS: BMI 26.9
[2020-04-04] MEDS ORDERED: cefTRIAXone\\ROCEPHIN 1 GM in Sodium Chloride 0.9% 100 ML IVPB SCH (21:00)
[2020-04-04] MEDS: NS 0.9% w/ 20 MEQ KCL 1,000 ML/1,000 ML BAG IV SCH (21:23)
[2020-04-04] MEDS: Famotidine/PF 20 mg/2ml Vial SLOW IVP SCH (21:23)
[2020-04-04] MEDS: metroNIDAZOLE 500 MG in Premix Bag 1 BAG IVPB SCH (21:23)
--- NOTE | 2020-04-04 21:42 | PDOC.EVN ---
Event Note - Event Note Event Note: [id number] dictated
[2020-04-04] MEDS: Morphine 4 MG/ML VIAL SLOW IVP PRN (22:00)
--- NOTE | 2020-04-05 01:18 | HP ---
CHIEF COMPLAINT: Abdominal pain, vomiting, and diarrhea. HISTORY OF PRESENT ILLNESS: Ms. Barnhart is a 59-year-old female with past medical history of breast cancer, hyperlipidemia, hypertension, who presents to [facility] with abdominal pain, associated with nausea, vomiting, and diarrhea. The patient has had her gallbladder removed, and had a breast cancer in the early 1999. The patient denies fever. Workup in the emergency room, the patient had a WBC of 12.5. Potassium is low at 3.3. Initial lactic acid was 4.3, after IV fluids it went down to 2.3. Urinalysis unremarkable. CT of abdomen and pelvis, no acute abnormality. The patient is being transferred to our medical facility for further management. PAST MEDICAL HISTORY: 1. Breast cancer. 2. Hypertension. 3. Hyperlipidemia. PAST SURGICAL HISTORY: 1. x2. 2. Left breast lumpectomy with lymph nodes removed. 3. Cholecystectomy. SOCIAL HISTORY: The patient lives at home with family. Drinks daily. Denies drug use. Currently uses tobacco, smokes cigarettes daily. FAMILY HISTORY: Reviewed and noncontributory. ALLERGIES: NO KNOWN ALLERGIES. HOME MEDICATIONS: Please see home medication reconciliation form for updated medications. REVIEW OF SYSTEMS: Review of 14 systems negative except what is mentioned in history of present illness. PHYSICAL EXAMINATION: GENERAL: The patient is awake, alert, in moderate distress. VITAL SIGNS: Blood pressure is 160/80, pulse is 101, respiratory rate is 18, oxygen saturation is 100%, temperature 98.5. HEAD AND NECK: Normocephalic, atraumatic. Neck is supple. No JVD. CHEST: Fair bilateral entry. ABDOMEN: Soft with mild diffuse tenderness mainly in the right upper quadrant. NEUROLOGIC: Awake, alert, oriented x3. PSYCH: Normal mood. EXTREMITIES: No clubbing or cyanosis. LABORATORY DATA: Urinalysis unremarkable. Sodium 133, potassium 3.3, BUN is less than 4, creatinine 0.6. Lactic acid 4.3, repeat lactic acid 2.3. ASSESSMENT: 1. Acute gastroenteritis. 2. Hypokalemia. 3. Hyperlipidemia. 4. History of breast cancer. 5. Hypertension. PLAN: 1. Admit. 2. IV fluids. 3. Replace potassium. 4. Continue with empiric IV antibiotics. 5. Reconcile home medications. 6. DVT prophylaxis as appropriate. 7. Expected length of stay is one midnight if patient is stable and able to tolerate p.o. Job ID: [id number]
[2020-04-05] MEDS: Morphine 4 MG/ML VIAL SLOW IVP PRN ×5 (01:35→21:47)
[2020-04-05] MEDS: Ondansetron PF 4 MG/2 ML Vial IVP PRN ×3 (01:42→16:40)
[2020-04-05] MEDS: NS 0.9% w/ 20 MEQ KCL 1,000 ML/1,000 ML BAG IV SCH ×3 (05:33→20:50)
[2020-04-05] MEDS: metroNIDAZOLE 500 MG in Premix Bag 1 BAG IVPB SCH ×3 (05:33→21:45)
[2020-04-05 06:16] LABS: #Basophils 0.1 thou/uL (0.0-0.2); #Eosinphils 0.1 thou/uL (0.0-0.7); #Lymphocytes 4.6 thou/uL (1.20-3.40); #Monocytes 0.6 thou/uL (0.11-0.59); #Neutrophils 5.5 thou/uL (1.40-6.50); %Basophils 0.8 % (0.0-1.0); %Eosinophils 0.6 % (0.0-10.0); %Lymphocytes 42.7 % (21.0-51.0); %Monocytes 5.7 % (0.0-10.0); %Neutrophils 50.3 % (42.0-75.0); Hemoglobin 11.1 g/dL (12.0-16.0); Mean Corpuscular HGB CONC 33.6 g/dL (32.0-36.0); Mean Corpuscular Hemoglobin 32.5 pg (27.0-31.0); Mean Corpuscular Volume 96.5 fL (78.0-98.0); Mean Platelet Volume 6.5 fL (7.4-10.4); Platelet Count 295 thou/uL (130-400); RBC Distribution Width 12.5 % (11.5-14.5); Red Blood Cell (RBC) Count 3.42 mill/uL (4.20-5.40); White Blood Cell (WBC) Count 10.9 thou/uL (4.8-10.8)
[2020-04-05 06:40] LABS: ALT (SGPT) 23 U/L (8-55); AST (SGOT) 45 U/L (5-34); Albumin 3.6 g/dL (3.5-5.0); Alkaline Phosphatase 287 U/L (40-110); Anion Gap 11 mmol/L (10-20); BUN (Urea Nitrogen) Less than 4 mg/dL (9.8-20.1); Bilirubin, Total 0.4 mg/dL (0.2-1.2); Calc. Creatinine Clearance 105 mL/min (70-130); Calcium 7.8 mg/dL (7.8-10.44); Carbon Dioxide 25 mmol/L (22-29); Chloride 101 mmol/L (98-107); Estimated GFR-MDRD Greater than 90; Globulin 2.4 g/dL (2.4-3.5); Glucose 84 mg/dL (70-105); Sodium 134 mmol/L (136-145)
[2020-04-05] MEDS: Famotidine/PF 20 mg/2ml Vial SLOW IVP SCH ×2 (08:14→20:06)
[2020-04-05] MEDS ORDERED: Promethazine HCl 25 MG in Sodium Chloride 0.9% 50 ML IVPB PRN (10:23)
[2020-04-05] MEDS: Potassium Chloride 20 MEQ TAB PO SCH ×2 (10:43→12:18)
[2020-04-05 12:03] LABS: SARS-CoV-2 MS2 Positive; SARS-CoV-2 N Gene Negative; SARS-CoV-2 S Gene Negative; SARS-CoV-2 by NAA Not Detected (NotDetected); SARS-CoV-2 orf1ab Negative
[2020-04-05] MEDS: cefTRIAXone\\ROCEPHIN 1 GM in Sodium Chloride 0.9% 100 ML IVPB SCH (12:15)
[2020-04-05] MEDS: FLU VACC QS2020-21(6MOS UP)/PF 60 MCG/0.5 ML SYRINGE IM ONE (12:16)
--- NOTE | 2020-04-05 17:01 | PDOC.HOSPP ---
- Subjective Encounter Date: 04/05/20 Encounter Time: 17:00 Subjective: Ms. Barnhart was seen today in follow-up of gastroenteritis. She notes improvement of the vomiting, and says her stools are firming up. She was not able to keep the oral potassium down. - Objective Vital Signs & Weight: Vital Signs (12 hours) Temp Pulse Resp BP BP Pulse Ox 04/05/20 11:00 98.4 F 86 20 126/81 97 04/05/20 08:00 98.3 F 85 20 131/79 97 Weight Weight 147 lb 1 oz I&O: 04/04/20 04/05/20 04/06/20 06:59 06:59 06:59 Intake Total 3805 Balance 3805 Result Diagrams: 04/05/20 05:49 04/05/20 05:49 Hospitalist ROS - Medication Medications: Active Medications Generic Name Dose Route Start Last Admin Trade Name Freq PRN Reason Stop Dose Admin Famotidine 20 mg 04/04/20 21:00 04/05/20 08:14 Famotidine/Pf 20 Mg/2ml Vial SLOW IVP 20 mg Q12HR STUART Administration Metronidazole 500 mg/ Device 100 mls @ 100 mls/hr 04/04/20 22:00 04/05/20 14:47 IVPB 100 mls Q8HR STUART Administration Potassium Chloride/Sodium Chloride 1,000 ml in 1,000 mls @ 125 mls/hr 04/04/20 20:30 04/05/20 14:48 Ns 0.9% W/ 20 Meq Kcl IV 1,000 mls .Q8H STUART Administration Ceftriaxone Sodium 1 gm/ 100 mls @ 200 mls/hr 04/05/20 12:00 04/05/20 12:15 Sodium Chloride IVPB 100 mls Q24HR STUART Administration Promethazine HCl 25 mg/ Sodium 51 mls @ 204 mls/hr 04/05/20 10:23 04/05/20 12:13 Chloride IVPB 51 mls Q6H PRN Administration Nausea/Vomiting Morphine Sulfate 4 mg 04/04/20 21:22 04/05/20 16:38 Morphine 4 Mg/Ml Vial SLOW IVP 4 mg Q3H PRN Administration Pain Ondansetron HCl 4 mg 04/04/20 20:11 04/05/20 16:40 Ondansetron Pf 4 Mg/2 Ml Vial IVP 4 mg Q6H PRN Administration Nausea/Vomiting Sodium Chloride 10 ml 04/05/20 10:30 04/05/20 10:43 Flush - Normal Saline 10 Ml Syringe IVF 10 ml PRN PRN Administration Saline Flush - Exam Eye: PERRL, anicteric sclera Heart: RRR, no murmur, no gallops, no rubs, normal peripheral pulses Respiratory: CTAB, no wheezes, no rales, no ronchi, normal chest expansion Gastrointestinal: soft, non-distended, normal bowel sounds, tender to palpation (+ mild diffuse tenderness, no rebound or guarding) Hosp A/P (1) Gastroenteritis presumed infectious Code(s): K52.9 - NONINFECTIVE GASTROENTERITIS AND COLITIS, UNSPECIFIED Status: Acute (2) Hypokalemia Code(s): E87.6 - HYPOKALEMIA Status: Acute (3) Hypertension Code(s): I10 - ESSENTIAL (PRIMARY) HYPERTENSION Status: Chronic (4) Breast cancer Status: Chronic - Plan * Gastroenteritis- will check stool studies * Continue IV fluids, and Rocephin and Flagyl * HTN- blood pressure is stable * Breast Cancer- stable
[2020-04-05] MEDS ORDERED: Potassium Chloride 20 MEQ in Premix Bag 1 BAG IVPB SCH (17:30)
[2020-04-05] MEDS ORDERED: Fentanyl 100 MCG/2 ML VIAL SLOW IVP SCH (20:00)
[2020-04-05] MEDS ORDERED: Lidocaine 2% Viscous Solution 10 ML, Aluminum & Magnesium Hydroxide 30 ML SSW SCH (23:00)
[2020-04-06] MEDS ORDERED: Dicyclomine 20 MG TAB PO SCH (02:30)
[2020-04-06] MEDS: Morphine 4 MG/ML VIAL SLOW IVP PRN ×4 (02:37→12:23)
[2020-04-06] MEDS: Ondansetron PF 4 MG/2 ML Vial IVP PRN (02:42)
[2020-04-06] MEDS: metroNIDAZOLE 500 MG in Premix Bag 1 BAG IVPB SCH (06:03)
[2020-04-06] MEDS: NS 0.9% w/ 20 MEQ KCL 1,000 ML/1,000 ML BAG IV SCH ×2 (06:04→12:30)
[2020-04-06 07:58] LABS: #Basophils 0.1 thou/uL (0.0-0.2); #Eosinphils 0.1 thou/uL (0.0-0.7); #Lymphocytes 2.4 thou/uL (1.20-3.40); #Monocytes 0.3 thou/uL (0.11-0.59); #Neutrophils 3.7 thou/uL (1.40-6.50); %Basophils 0.9 % (0.0-1.0); %Eosinophils 2.1 % (0.0-10.0); %Lymphocytes 36.1 % (21.0-51.0); %Monocytes 5.1 % (0.0-10.0); %Neutrophils 55.8 % (42.0-75.0); Hemoglobin 10.5 g/dL (12.0-16.0); Mean Corpuscular HGB CONC 34.2 g/dL (32.0-36.0); Mean Corpuscular Hemoglobin 32.5 pg (27.0-31.0); Mean Corpuscular Volume 95.1 fL (78.0-98.0); Mean Platelet Volume 6.3 fL (7.4-10.4); Platelet Count 289 thou/uL (130-400); RBC Distribution Width 12.6 % (11.5-14.5); Red Blood Cell (RBC) Count 3.24 mill/uL (4.20-5.40); White Blood Cell (WBC) Count 6.6 thou/uL (4.8-10.8)
[2020-04-06 08:09] LABS: Anion Gap 12 mmol/L (10-20); BUN (Urea Nitrogen) Less than 4 mg/dL (9.8-20.1); Calc. Creatinine Clearance 113 mL/min (70-130); Calcium 7.9 mg/dL (7.8-10.44); Carbon Dioxide 25 mmol/L (22-29); Chloride 102 mmol/L (98-107); Estimated GFR-MDRD Greater than 90; Glucose 85 mg/dL (70-105); Potassium 3.6 mmol/L (3.5-5.1); Sodium 135 mmol/L (136-145)
[2020-04-06] MEDS: Famotidine/PF 20 mg/2ml Vial SLOW IVP SCH (08:26)
[2020-04-06] MEDS: HYDROcodone/Acetaminophen 5/325 mg Tablet PO PRN ×3 (10:42→18:11)
[2020-04-06] MEDS: cefTRIAXone\\ROCEPHIN 1 GM in Sodium Chloride 0.9% 100 ML IVPB SCH (10:44)
--- NOTE | 2020-04-06 11:13 | PDOC.HOSPP ---
- Subjective Encounter Date: 04/06/20 Encounter Time: 11:11 Subjective: Ms. Barnhart was seen today in follow-up of Gastroenteritis. She notes some improvement in her symptoms. She had recent knee surgery, and notes some sharp pains in her knees. - Objective Vital Signs & Weight: Vital Signs (12 hours) Temp Pulse Resp BP BP Pulse Ox 04/06/20 08:15 98.7 F 81 14 137/88 95 04/06/20 08:00 98.7 F 81 14 137/88 95 04/06/20 07:55 98.7 F 81 14 137/88 95 04/06/20 04:00 98.4 F 81 18 129/83 97 04/06/20 00:00 98.3 F 92 18 138/91 H 96 Weight Weight 147 lb 1 oz I&O: 04/05/20 04/06/20 04/07/20 06:59 06:59 06:59 Intake Total 3805 4096 Balance 3805 4096 Result Diagrams: 04/06/20 07:43 04/06/20 07:43 Hospitalist ROS - Medication Medications: Active Medications Generic Name Dose Route Start Last Admin Trade Name Freq PRN Reason Stop Dose Admin Hydrocodone Bitart/Acetaminophen 1 tab 04/06/20 10:15 04/06/20 10:42 Hydrocodone/Acetaminophen 5/325 Mg Tablet PO 1 tab Q4H PRN Administration Moderate Pain (4-6) Famotidine 20 mg 04/04/20 21:00 04/06/20 08:26 Famotidine/Pf 20 Mg/2ml Vial SLOW IVP 20 mg Q12HR STUART Administration Metronidazole 500 mg/ Device 100 mls @ 100 mls/hr 04/04/20 22:00 04/06/20 06:03 IVPB 100 mls Q8HR STUART Administration Potassium Chloride/Sodium Chloride 1,000 ml in 1,000 mls @ 125 mls/hr 04/04/20 20:30 04/06/20 06:04 Ns 0.9% W/ 20 Meq Kcl IV 1,000 mls .Q8H STUART Administration Ceftriaxone Sodium 1 gm/ 100 mls @ 200 mls/hr 04/05/20 12:00 04/06/20 10:44 Sodium Chloride IVPB 100 mls Q24HR STUART Administration Promethazine HCl 25 mg/ Sodium 51 mls @ 204 mls/hr 04/05/20 10:23 04/05/20 12:13 Chloride IVPB 51 mls Q6H PRN Administration Nausea/Vomiting Morphine Sulfate 4 mg 04/04/20 21:22 04/06/20 09:05 Morphine 4 Mg/Ml Vial SLOW IVP 4 mg Q3H PRN Administration Pain Ondansetron HCl 4 mg 04/04/20 20:11 04/06/20 02:42 Ondansetron Pf 4 Mg/2 Ml Vial IVP 4 mg Q6H PRN Administration Nausea/Vomiting Sodium Chloride 10 ml 04/05/20 21:00 04/06/20 09:09 Flush - Normal Saline 10 Ml Syringe IVF 10 ml Q12HR STUART Administration Sodium Chloride 10 ml 04/05/20 10:30 04/05/20 10:43 Flush - Normal Saline 10 Ml Syringe IVF 10 ml PRN PRN Administration Saline Flush - Exam Eye: PERRL, anicteric sclera Heart: RRR, no murmur, no gallops, no rubs, normal peripheral pulses Respiratory: CTAB, no wheezes, no rales, no ronchi, normal chest expansion Gastrointestinal: soft, non-tender, normal bowel sounds, no palpable masses, no hepatomegaly, no guarding, no rigidity, tender to palpation (+ very mild RUQ tenderness) Extremities: no cyanosis, no edema Hosp A/P (1) Gastroenteritis presumed infectious Code(s): K52.9 - NONINFECTIVE GASTROENTERITIS AND COLITIS, UNSPECIFIED Status: Acute (2) Hypokalemia Code(s): E87.6 - HYPOKALEMIA Status: Acute (3) Hypertension Code(s): I10 - ESSENTIAL (PRIMARY) HYPERTENSION Status: Chronic (4) Breast cancer Status: Chronic - Plan * Gastroenteritis-stool studies were negative, and her symptoms are improving * Will advance her diet. If this is stable, then can consider discharge home * HTN- blood pressure is stable * Breast Cancer- stable
[2020-04-06] MEDS ORDERED: Lidocaine 2% Viscous Solution 10 ML, Aluminum & Magnesium Hydroxide 30 ML SSW SCH (11:30)
[2020-04-06] MEDS: FLU VACC QS2020-21(6MOS UP)/PF 60 MCG/0.5 ML SYRINGE IM ONE (15:23)
[2020-04-06 15:32] VITALS: BP 153/89; TEMP 98.3
--- NOTE | 2020-04-06 19:35 | DIS ---
DATE OF ADMISSION: 04/04/2020 DATE OF DISCHARGE: 04/06/2020 PRIMARY CARE PHYSICIAN: Meseret Ling MD DISCHARGE DISPOSITION: Home. DISCHARGE DIAGNOSES: 1. Gastroenteritis, presumed viral. 2. Hypertension. 3. History of breast cancer. 4. Hyperlipidemia. DISCHARGE MEDICATIONS: Include: 1. Lipitor 20 mg p.o. daily. 2. Vitamin D3 of 5000 units p.o. daily. 3. Protonix 40 mg p.o. daily. 4. Pregabalin 50 mg p.o. twice a day. 5. Magnesium oxide 400 mg p.o. daily. 6. Aspirin 81 mg daily. 7. CoQ10 of 200 mg p.o. daily. 8. Cholestyramine 4 g powder pack as directed. IMAGING DONE DURING THE HOSPITAL STAY: The patient had a CT scan of the abdomen and pelvis in which there is no acute abnormality in the pelvis, small caliber appendix, stable calcified uterine leiomyoma at the level of the fundus, and redemonstration of a left ovarian cyst. It has been present for 5 months. CODE STATUS: Full code. ALLERGIES: NO KNOWN DRUG ALLERGIES. HOSPITAL COURSE: Ms. Barnhart is a pleasant 59-year-old female, who was admitted to the hospital complaining of abdominal pain, nausea, vomiting, and diarrhea. She was admitted to the hospital after CT scan was done. Stool studies were performed and were negative. Her symptoms began to slowly improve over the course of the next couple of days. She also had some hyponatremia likely due to potassium losses in diarrhea and the vomitus. This was replaced and her potassium was 3.6 at the time of discharge. She was instructed to follow up with her primary care physician in 1 week. She also sees Dr. Abbasi as her primary hot header operator and actually has an appointment scheduled with her in the coming weeks. Also with regard to the ovarian cyst, she will need to schedule an outpatient ENERGY CONSERVATION TECHNICIAN followup to further evaluate this. Job ID: [id number]
== END 2020-04-06 18:45 | disposition home or self-care (01) ==
LOC: T4-A 20:15
PROVIDERS: ADMIT Internal Medicine; ATTEND Internal Medicine
DX: K52.9 Noninfective gastroenteritis and colitis, unspecified (principal); I10 Essential (primary) hypertension; E78.5 Hyperlipidemia, unspecified; E87.1 Hypo-osmolality and hyponatremia; F17.210 Nicotine dependence, cigarettes, uncomplicated; Z20.828 Contact with and (suspected) exposure to other viral communicable diseases; Z79.82 Long term (current) use of aspirin; Z79.899 Other long term (current) drug therapy; Z85.3 Personal history of malignant neoplasm of breast
CPT/HCPCS: 36415; 80048; 80053; 85025; 87324; 87328; 87329; 87427; 87449; 87635; 90471; 90662; 96361; 96365; 96366; 96375; 96376; G0008; G0378; J0696; J2270; J2405; J2550; J3010; J3480; J3490; S0028; U0003

== ENCOUNTER 2020-10-19 14:42 | Emergency (ER) | payer BC ==
[2020-10-19] MEDS ORDERED: Diazepam 10 MG/2 ML SYRINGE ONE (15:25)
[2020-10-19 15:31] LABS: #Basophils 0.1 thou/uL (0.0-0.2); #Eosinphils 0.2 thou/uL (0.0-0.7); #Lymphocytes 3.2 thou/uL (1.20-3.40); #Monocytes 0.5 thou/uL (0.11-0.59); #Neutrophils 9.4 thou/uL (1.40-6.50); %Eosinophils 1.2 % (0.0-10.0); %Lymphocytes 23.8 % (21.0-51.0); %Monocytes 3.4 % (0.0-10.0); %Neutrophils 70.7 % (42.0-75.0); Hemoglobin 11.6 g/dL (12.0-16.0); Mean Corpuscular HGB CONC 33.2 g/dL (32.0-36.0); Mean Corpuscular Hemoglobin 33.7 pg (27.0-31.0); Mean Platelet Volume 6.1 fL (7.4-10.4); Platelet Count 329 thou/uL (130-400); RBC Distribution Width 12.3 % (11.5-14.5); Red Blood Cell (RBC) Count 3.45 mill/uL (4.20-5.40); White Blood Cell (WBC) Count 13.3 thou/uL (4.8-10.8)
[2020-10-19 15:51] LABS: ALT (SGPT) 12 U/L (8-55); AST (SGOT) 18 U/L (5-34); Albumin 3.8 g/dL (3.5-5.0); Alkaline Phosphatase 255 U/L (40-110); Anion Gap 17 mmol/L (10-20); BUN (Urea Nitrogen) 6 mg/dL (9.8-20.1); Bilirubin, Total 0.4 mg/dL (0.2-1.2); CRP (Inflammatory) 7.79 mg/dL (= or < 0.5); Calc. Creatinine Clearance 0 mL/min (70-130); Calcium 9.3 mg/dL (7.8-10.44); Carbon Dioxide 25 mmol/L (22-29); Chloride 89 mmol/L (98-107); Globulin 3.2 g/dL (2.4-3.5); Glucose 84 mg/dL (70-105); Potassium 4.7 mmol/L (3.5-5.1); Sodium 126 mmol/L (136-145)
[2020-10-19] MEDS ORDERED: Fentanyl 100 MCG/2 ML VIAL ONE (16:55)
[2020-10-19] MEDS ORDERED: Lidocaine 1% (PF) 30 ML VIAL ONE (17:02)
[2020-10-19 18:54] LABS: RBC Count-Automated (BF) 23238 /cu.mm; WBC/Nucleated-Auto (BF) 27559 uL
[2020-10-19 18:56] LABS: BF Color Red; Body Fluid Source Synovial Fluid; Clarity Cloudy/Turbid (Clear); Tube # EDTA
[2020-10-19] MEDS ORDERED: Ketorolac Tromethamine 30 MG/ML VIAL ONE (19:05)
[2020-10-19 19:08] LABS: BF Segmented Neutrophils 55 %; Cell Count Non Hematic 35 %; Lymphocytes 10 %
== END 2020-10-19 20:30 | disposition home or self-care (01) ==
LOC: ERS 14:42
DX: M25.462 Effusion, left knee (principal); Z85.3 Personal history of malignant neoplasm of breast; E78.5 Hyperlipidemia, unspecified; E78.00 Pure hypercholesterolemia, unspecified; I10 Essential (primary) hypertension; F17.210 Nicotine dependence, cigarettes, uncomplicated; Z79.82 Long term (current) use of aspirin; Z79.899 Other long term (current) drug therapy
CPT/HCPCS: 20610; 36415; 80053; 82945; 85025; 85060; 85652; 86140; 87070; 87205; 89051; 96374; 96375; J1885; J2001; J3010; J3360

== ENCOUNTER 2020-10-24 09:48 | Outpatient (CLI) | payer BC | END 2020-10-24 09:49 | disposition home or self-care (01) | LOC: NM 09:48 | PROVIDERS: ATTEND Specialist | DX: T84.84XD Pain due to internal orthopedic prosthetic devices, implants and grafts, subsequent encounter (principal) | CPT/HCPCS: 78315; A9503 ==

== ENCOUNTER 2021-07-13 11:02 | Outpatient (CLI) | payer BC | END 2021-07-13 11:03 | disposition home or self-care (01) | LOC: CT 11:02 | PROVIDERS: ATTEND Internal Medicine Gastroenterology | DX: R10.12 Left upper quadrant pain (principal); R19.7 Diarrhea, unspecified; K59.00 Constipation, unspecified; R63.4 Abnormal weight loss | CPT/HCPCS: 74170 ==

== ENCOUNTER 2021-07-13 11:37 | Observation (INO) | payer BC ==
[2021-07-13 12:20] LABS: #Basophils 0.1 thou/uL (0.0-0.2); #Eosinphils 0.1 thou/uL (0.0-0.7); #Lymphocytes 4.2 thou/uL (1.20-3.40); #Monocytes 0.4 thou/uL (0.11-0.59); #Neutrophils 6.4 thou/uL (1.40-6.50); %Basophils 0.7 % (0.0-1.0); %Eosinophils 0.6 % (0.0-10.0); %Lymphocytes 37.6 % (21.0-51.0); %Monocytes 3.9 % (0.0-10.0); %Neutrophils 57.2 % (42.0-75.0); Hemoglobin 11.5 g/dL (12.0-16.0); Mean Corpuscular HGB CONC 33.7 g/dL (32.0-36.0); Mean Corpuscular Hemoglobin 32.2 pg (27.0-31.0); Mean Corpuscular Volume 95.8 fL (78.0-98.0); Platelet Count 361 thou/uL (130-400); RBC Distribution Width 12.3 % (11.5-14.5); Red Blood Cell (RBC) Count 3.56 mill/uL (4.20-5.40); White Blood Cell (WBC) Count 11.1 thou/uL (4.8-10.8)
[2021-07-13 12:39] LABS: ALT (SGPT) 15 U/L (8-55); AST (SGOT) 36 U/L (5-34); Albumin 3.8 g/dL (3.5-5.0); Alkaline Phosphatase 196 U/L (40-110); Anion Gap 14 mmol/L (10-20); BUN (Urea Nitrogen) 5 mg/dL (9.8-20.1); Bilirubin, Total 0.3 mg/dL (0.2-1.2); Calc. Creatinine Clearance 0 mL/min (70-130); Calcium 8.9 mg/dL (7.8-10.44); Carbon Dioxide 22 mmol/L (22-29); Chloride 94 mmol/L (98-107); Globulin 3.1 g/dL (2.4-3.5); Potassium 3.9 mmol/L (3.5-5.1); Protein, Total 6.9 g/dL (6.0-8.3); Sodium 126 mmol/L (136-145)
[2021-07-13 12:52] LABS: Glucose 52 mg/dL (70-105)
[2021-07-13 13:10] LABS: Phosphorus 2.9 mg/dL (2.3-4.7)
[2021-07-13 13:12] LABS: Magnesium 1.7 mg/dL (1.6-2.6)
[2021-07-13] MEDS ORDERED: Lorazepam 2 MG/ML VIAL ONE (13:25)
[2021-07-13 14:12] LABS: Acetaminophen Less than 6.0 mcg/mL (10.0-30.0); Alcohol 14 mg/dL (Less than 10); Salicylate Less than 8.0 mg/dL (15.0-30.0)
[2021-07-13] MEDS ORDERED: Ketorolac Tromethamine 30 MG/ML VIAL ONE (14:47)
[2021-07-13 14:53] LABS: Bilirubin Negative (Negative); Blood, Urine Negative (Negative); Clarity Clear (Clear); Glucose, Urine (Dipstick) Normal (Negative); Ketone, Urine Negative (Negative); Leukocyte 250 Leu/uL (Negative); Nitrite 1+ (Negative); Protein, Urine (Dipstick) Negative (Neg-Trace); RBC/HPF 0-3 HPF (0-3); Squamous Epithelial 0-3 HPF (0-3); Urobilinogen Normal mg/dL (Less than 2)
[2021-07-13 14:54] LABS: Bacteria/HPF 1+ HPF (None Seen)
[2021-07-13 14:59] LABS: Amphetamine Not Detected (NotDetected); Barbiturates Screen Not Detected (NotDetected); Benzodiazepine Screen Detected (NotDetected); Cocaine Metabolite Screen Not Detected (NotDetected); Methadone Not Detected (NotDetected); Methamphetamine Not Detected (NotDetected); Opiate Screen Not Detected (NotDetected); Oxycodone Screen Not Detected (NotDetected); Phencyclidine (PCP) Not Detected (NotDetected); THC/Cannabinoid Screen Not Detected (NotDetected); Tricyclic Screen Detected (NotDetected)
[2021-07-13] MEDS ORDERED: Labetalol HCl 100 MG/20 ML VIAL ONE (15:14)
[2021-07-13] MEDS ORDERED: cefTRIAXone\\ROCEPHIN 1 GM VIAL ONE (15:14)
[2021-07-13] MEDS ORDERED: Ondansetron PF 4 MG/2 ML Vial IVP PRN (16:45)
[2021-07-13] MEDS ORDERED: Sodium Chloride 0.9% 1,000 ML IV SCH (16:45)
[2021-07-13] MEDS ORDERED: Acetaminophen 325 MG TAB ONE (16:51)
[2021-07-13] MEDS: Acetaminophen 325 MG TAB PO PRN (16:59)
[2021-07-13] MEDS ORDERED: Acetaminophen/Codeine 30-300mg Tablet ONE (17:45)
[2021-07-13] MEDS: Acetaminophen/Codeine 30-300mg Tablet PO PRN (17:47)
[2021-07-13] MEDS ORDERED: Amlodipine 10 MG TAB PO SCH (18:30)
[2021-07-13 18:35] VITALS: BMI 22.8
[2021-07-13] MEDS ORDERED: HYDROcodone/Acetaminophen 10/325 mg Tablet PO SCH (19:45)
[2021-07-13] MEDS: Pregabalin 50 MG CAP PO SCH (20:07)
[2021-07-13] MEDS: Dextrose 5 % And 0.9 % NaCl 1,000 ML IV SCH (20:51)
[2021-07-13] MEDS ORDERED: Lorazepam 0.5 MG TAB PO SCH (22:45)
[2021-07-14] MEDS: Acetaminophen/Codeine 30-300mg Tablet PO PRN ×2 (01:38→07:53)
[2021-07-14] MEDS: Acetaminophen 325 MG TAB PO PRN (03:46)
[2021-07-14 06:01] LABS: #Basophils 0.1 thou/uL (0.0-0.2); #Eosinphils 0.1 thou/uL (0.0-0.7); #Lymphocytes 3.5 thou/uL (1.20-3.40); #Monocytes 0.3 thou/uL (0.11-0.59); #Neutrophils 3.6 thou/uL (1.40-6.50); %Basophils 0.7 % (0.0-1.0); %Eosinophils 1.7 % (0.0-10.0); %Lymphocytes 46.4 % (21.0-51.0); %Monocytes 4.2 % (0.0-10.0); Hemoglobin 11.2 g/dL (12.0-16.0); Mean Corpuscular HGB CONC 33.3 g/dL (32.0-36.0); Mean Corpuscular Hemoglobin 32.4 pg (27.0-31.0); Mean Corpuscular Volume 97.3 fL (78.0-98.0); Mean Platelet Volume 5.9 fL (7.4-10.4); Platelet Count 357 thou/uL (130-400); RBC Distribution Width 12.3 % (11.5-14.5); Red Blood Cell (RBC) Count 3.45 mill/uL (4.20-5.40); White Blood Cell (WBC) Count 7.6 thou/uL (4.8-10.8)
[2021-07-14 06:15] LABS: Anion Gap 12 mmol/L (10-20); BUN (Urea Nitrogen) Less than 4 mg/dL (9.8-20.1); Calc. Creatinine Clearance 100 mL/min (70-130); Calcium 8.6 mg/dL (7.8-10.44); Carbon Dioxide 26 mmol/L (22-29); Chloride 101 mmol/L (98-107); Glucose 85 mg/dL (70-105); Potassium 4.1 mmol/L (3.5-5.1); Sodium 135 mmol/L (136-145)
[2021-07-14] MEDS: Pregabalin 50 MG CAP PO SCH (07:56)
[2021-07-14] MEDS: HYDROcodone/Acetaminophen 5/325 mg Tablet PO PRN ×2 (08:56→14:56)
[2021-07-14] MEDS: Dextrose 5 % And 0.9 % NaCl 1,000 ML IV SCH (08:59)
[2021-07-14] MEDS ORDERED: FLU VACC QS2021-22(6MOS UP)/PF 60 MCG/0.5 ML SYRINGE IM ONE (09:00)
[2021-07-14] MEDS ORDERED: Atorvastatin Calcium 40 MG TAB PO SCH (09:00)
[2021-07-14] MEDS ORDERED: Lisinopril 5 MG TAB PO SCH (09:00)
[2021-07-14] MEDS ORDERED: Aspirin 81 mg Enteric Coated Tablet PO SCH (09:00)
[2021-07-14] MEDS ORDERED: Enoxaparin Sodium 40 MG/0.4 ML SYRINGE SC SCH (09:00)
[2021-07-14] MEDS ORDERED: Lorazepam 2 MG/ML VIAL SLOW IVP SCH (09:15)
[2021-07-14 11:25] LABS: SARS-CoV-2 PCR by NAA Not Detected (NotDetected)
[2021-07-14 12:18] VITALS: TEMP 98.2
[2021-07-14] MEDS ORDERED: cefTRIAXone\\ROCEPHIN 1 GM in Sodium Chloride 0.9% 100 ML IVPB SCH (15:00)
[2021-07-14 16:16] VITALS: BP 142/79
[2021-07-14] MEDS ORDERED: Pregabalin 75 MG CAP PO SCH (21:00)
[2021-07-14] MEDS ORDERED: levETIRAcetam 500 MG TAB PO SCH (21:00)
== END 2021-07-14 16:16 | disposition home or self-care (01) ==
LOC: ERS 11:37 → ERHOLD 14:59 → NEURO 18:22
PROVIDERS: ADMIT Internal Medicine; ATTEND Internal Medicine
DX: R25.3 Fasciculation (principal); N39.0 Urinary tract infection, site not specified; R59.0 Localized enlarged lymph nodes; I16.0 Hypertensive urgency; I10 Essential (primary) hypertension; E78.2 Mixed hyperlipidemia; E87.1 Hypo-osmolality and hyponatremia; F17.210 Nicotine dependence, cigarettes, uncomplicated; Z85.3 Personal history of malignant neoplasm of breast; Z79.82 Long term (current) use of aspirin; Z79.899 Other long term (current) drug therapy; Z20.822 Contact with and (suspected) exposure to COVID-19; R10.12 Left upper quadrant pain; R19.7 Diarrhea, unspecified; K59.00 Constipation, unspecified; R63.4 Abnormal weight loss
CPT/HCPCS: 36415; 36416; 70450; 70553; 74170; 80048; 80053; 80306; 80307; 81003; 81015; 83735; 83930; 83935; 84100; 85025; 87077; 87086; 87186; 93005; 95712; 95819; 95957; 96372; 96375; 96376; G0378; J0696; J1650; J1885; J2060; J3490; J7042; J7050; U0003; U0005

== ENCOUNTER 2021-08-11 14:12 | Inpatient (IN) | payer BC ==
[2021-08-11 14:38] VITALS: BMI 24.5
[2021-08-11] MEDS ORDERED: Ondansetron ODT 4 MG TAB PO PRN (15:39)
[2021-08-11] MEDS ORDERED: Ondansetron PF 4 MG/2 ML Vial IVP PRN (15:39)
[2021-08-11] MEDS ORDERED: Loratadine 10 MG TAB PO PRN (15:39)
[2021-08-11 16:06] LABS: Hemoglobin 11.7 g/dL (12.0-16.0); Mean Corpuscular HGB CONC 33.6 g/dL (32.0-36.0); Mean Corpuscular Hemoglobin 32.5 pg (27.0-31.0); Mean Corpuscular Volume 96.7 fL (78.0-98.0); Mean Platelet Volume 6.3 fL (7.4-10.4); Platelet Count 306 thou/uL (130-400); White Blood Cell (WBC) Count 7.4 thou/uL (4.8-10.8)
[2021-08-11 16:23] LABS: Troponin I Less than 0.010 ng/mL (< 0.028)
[2021-08-11 16:27] LABS: Lymphocytes 43 % (21-51); MDiff Complete? YES; Monocytes 5 % (0-10); Neutrophil 51 % (42-75); Platelet Morphology Comment Appears Adequate; Target Cells SLIGHT = 2-5 cells (100X) (0-1/hpf)
[2021-08-11] MEDS: HYDROcodone/Acetaminophen 5/325 mg Tablet PO PRN ×2 (17:21→21:15)
[2021-08-11] MEDS: Acetaminophen 325 MG TAB PO PRN (18:43)
[2021-08-11 19:02] LABS: Chloride 88 mmol/L (98-107); Potassium 4.1 mmol/L (3.5-5.1)
[2021-08-11 19:03] LABS: Globulin 2.8 g/dL (2.4-3.5); Glucose 83 mg/dL (70-105); Protein, Total 6.8 g/dL (6.0-8.3)
[2021-08-11 19:05] LABS: Anion Gap 13 mmol/L (10-20); Bilirubin, Total 0.4 mg/dL (0.2-1.2); Carbon Dioxide 22 mmol/L (22-29)
[2021-08-11 19:06] LABS: Alkaline Phosphatase 135 U/L (40-110)
[2021-08-11 19:07] LABS: Calc. Creatinine Clearance 98 mL/min (70-130)
[2021-08-11 19:08] LABS: AST (SGOT) 25 U/L (5-34); BUN (Urea Nitrogen) 6 mg/dL (9.8-20.1)
[2021-08-11 19:09] LABS: ALT (SGPT) 18 U/L (8-55)
[2021-08-11 19:10] LABS: Sodium 119 mmol/L (136-145)
[2021-08-11 19:13] LABS: Troponin I Less than 0.010 ng/mL (< 0.028)
[2021-08-11 20:42] LABS: Free T4 (Free Thyroxine) 1.07 ng/dL (0.70-1.48)
[2021-08-11 20:43] LABS: Thyroid Stimulating Hormone 0.978 uIU/mL (0.35-4.94)
[2021-08-11] MEDS: Aspirin 325 mg Enteric Coated Tablet PO SCH (21:14)
[2021-08-11] MEDS: Nitroglycerin 2% Ointment 1 INCH/1 GM Packet TOP SCH (21:15)
[2021-08-11 23:46] LABS: Anion Gap 13 mmol/L (10-20); BUN (Urea Nitrogen) 7 mg/dL (9.8-20.1); Calc. Creatinine Clearance 91 mL/min (70-130); Calcium 8.9 mg/dL (7.8-10.44); Carbon Dioxide 23 mmol/L (22-29); Chloride 90 mmol/L (98-107); Glucose 93 mg/dL (70-105); Potassium 3.9 mmol/L (3.5-5.1); Sodium 122 mmol/L (136-145)
[2021-08-12] MEDS: HYDROcodone/Acetaminophen 5/325 mg Tablet PO PRN ×5 (03:15→20:02)
[2021-08-12] MEDS: Nitroglycerin 2% Ointment 1 INCH/1 GM Packet TOP SCH ×3 (05:30→22:38)
[2021-08-12 06:05] LABS: Anion Gap 12 mmol/L (10-20); BUN (Urea Nitrogen) 7 mg/dL (9.8-20.1); Calc. Creatinine Clearance 98 mL/min (70-130); Calcium 8.9 mg/dL (7.8-10.44); Carbon Dioxide 25 mmol/L (22-29); Chloride 91 mmol/L (98-107); Cholesterol 183 mg/dl (< 200 Desired); Glucose 84 mg/dL (70-105); HDL Cholesterol 61 mg/dL (>60 Neg Risk); LDL Cholesterol, Calculated 78 mg/dL; Potassium 3.8 mmol/L (3.5-5.1); Sodium 124 mmol/L (136-145); Triglycerides 222 mg/dL (Less than 150)
[2021-08-12 06:23] LABS: Band 4 % (5-11); Eosinophils 3 % (0-10); Hemoglobin 11.4 g/dL (12.0-16.0); Lymphocytes 47 % (21-51); MDiff Complete? YES; Mean Corpuscular HGB CONC 33.9 g/dL (32.0-36.0); Mean Corpuscular Hemoglobin 32.9 pg (27.0-31.0); Mean Platelet Volume 6.4 fL (7.4-10.4); Monocytes 1 % (0-10); Neutrophil 45 % (42-75); Platelet Count 310 thou/uL (130-400); RBC Distribution Width 12.1 % (11.5-14.5); Red Blood Cell (RBC) Count 3.48 mill/uL (4.20-5.40); White Blood Cell (WBC) Count 7.1 thou/uL (4.8-10.8)
[2021-08-12] MEDS ORDERED: cycloSPORINE 0.05% Ophthalmic Droperette EA EYE PRN (07:19)
[2021-08-12] MEDS ORDERED: Loratadine 10 MG TAB PO PRN (07:19)
[2021-08-12] MEDS: Lisinopril 5 MG TAB PO SCH (08:13)
[2021-08-12] MEDS: Atorvastatin Calcium 20 MG TAB PO SCH (08:14)
[2021-08-12] MEDS: Folic Acid 1 MG TAB PO SCH (08:14)
[2021-08-12] MEDS: Enoxaparin Sodium 40 MG/0.4 ML SYRINGE SC SCH (08:15)
[2021-08-12] MEDS ORDERED: FLU VACC QS2021-22(6MOS UP)/PF 60 MCG/0.5 ML SYRINGE IM ONE (09:00)
[2021-08-12] MEDS: Acetaminophen 325 MG TAB PO PRN (16:20)
[2021-08-12 17:23] LABS: Anion Gap 13 mmol/L (10-20); BUN (Urea Nitrogen) 7 mg/dL (9.8-20.1); Calc. Creatinine Clearance 95 mL/min (70-130); Calcium 9.2 mg/dL (7.8-10.44); Carbon Dioxide 25 mmol/L (22-29); Chloride 89 mmol/L (98-107); Glucose 87 mg/dL (70-105); Potassium 3.9 mmol/L (3.5-5.1); Sodium 123 mmol/L (136-145)
[2021-08-12] MEDS: Cyclobenzaprine 10 MG TAB PO PRN (18:25)
[2021-08-12] MEDS: Sodium Chloride 0.9% 1,000 ML IV SCH (18:25)
[2021-08-12] MEDS: Aspirin 325 mg Enteric Coated Tablet PO SCH (20:03)
[2021-08-13] MEDS: HYDROcodone/Acetaminophen 5/325 mg Tablet PO PRN ×6 (00:55→21:37)
[2021-08-13] MEDS: Acetaminophen 325 MG TAB PO PRN ×2 (00:56→12:05)
[2021-08-13] MEDS: cloNIDine 0.1 MG TAB PO PRN ×2 (03:30→21:43)
[2021-08-13] MEDS: Sodium Chloride 0.9% 1,000 ML IV SCH (03:30)
[2021-08-13] MEDS: Nitroglycerin 2% Ointment 1 INCH/1 GM Packet TOP SCH ×3 (05:10→21:39)
[2021-08-13 05:45] LABS: Anion Gap 10 mmol/L (10-20); BUN (Urea Nitrogen) 5 mg/dL (9.8-20.1); Calc. Creatinine Clearance 114 mL/min (70-130); Carbon Dioxide 21 mmol/L (22-29); Chloride 103 mmol/L (98-107); Glucose 85 mg/dL (70-105); Potassium 3.4 mmol/L (3.5-5.1); Sodium 131 mmol/L (136-145)
[2021-08-13] MEDS ORDERED: Potassium Chloride 20 MEQ TAB PO SCH (09:15)
[2021-08-13] MEDS: Folic Acid 1 MG TAB PO SCH (09:30)
[2021-08-13] MEDS: Lisinopril 5 MG TAB PO SCH (09:32)
[2021-08-13] MEDS: Enoxaparin Sodium 40 MG/0.4 ML SYRINGE SC SCH (09:33)
[2021-08-13] MEDS: Cyclobenzaprine 10 MG TAB PO PRN ×2 (12:18→21:38)
[2021-08-13] MEDS: Atorvastatin Calcium 20 MG TAB PO SCH ×2 (12:20→21:37)
[2021-08-13] MEDS ORDERED: Lisinopril 5 MG TAB PO SCH (12:45)
[2021-08-13] MEDS ORDERED: Meloxicam 15 MG TAB PO SCH ×2 (16:00→16:30)
[2021-08-13] MEDS: Lisinopril 10 MG TAB PO SCH (21:37)
[2021-08-13] MEDS: Aspirin 325 mg Enteric Coated Tablet PO SCH (22:43)
[2021-08-14] MEDS: HYDROcodone/Acetaminophen 5/325 mg Tablet PO PRN ×4 (03:19→19:27)
[2021-08-14 05:03] LABS: Anion Gap 11 mmol/L (10-20); BUN (Urea Nitrogen) 6 mg/dL (9.8-20.1); Calc. Creatinine Clearance 98 mL/min (70-130); Calcium 9.2 mg/dL (7.8-10.44); Carbon Dioxide 25 mmol/L (22-29); Chloride 97 mmol/L (98-107); Glucose 89 mg/dL (70-105); Potassium 3.9 mmol/L (3.5-5.1); Sodium 129 mmol/L (136-145)
[2021-08-14] MEDS: Nitroglycerin 2% Ointment 1 INCH/1 GM Packet TOP SCH ×3 (05:29→21:09)
[2021-08-14] MEDS: Enoxaparin Sodium 40 MG/0.4 ML SYRINGE SC SCH (08:13)
[2021-08-14] MEDS: Lisinopril 10 MG TAB PO SCH ×2 (08:14→21:05)
[2021-08-14] MEDS: Folic Acid 1 MG TAB PO SCH (08:14)
[2021-08-14] MEDS ORDERED: Lisinopril 10 MG TAB PO SCH ×2 (09:00)
[2021-08-14] MEDS ORDERED: Meloxicam 15 MG TAB PO SCH ×2 (09:00→17:45)
[2021-08-14] MEDS: cloNIDine 0.1 MG TAB PO PRN ×2 (10:38→12:56)
[2021-08-14] MEDS ORDERED: Labetalol HCl 100 MG/20 ML VIAL SLOW IVP PRN (17:31)
[2021-08-14] MEDS ORDERED: NIFEdipine XL 60 MG TAB PO SCH (17:45)
[2021-08-14] MEDS: Atorvastatin Calcium 20 MG TAB PO SCH (21:05)
[2021-08-14] MEDS: Aspirin 325 mg Enteric Coated Tablet PO SCH (21:05)
[2021-08-15] MEDS: HYDROcodone/Acetaminophen 5/325 mg Tablet PO PRN ×3 (00:13→09:53)
[2021-08-15] MEDS: Cyclobenzaprine 10 MG TAB PO PRN (00:14)
[2021-08-15] MEDS: Nitroglycerin 2% Ointment 1 INCH/1 GM Packet TOP SCH (05:08)
[2021-08-15] MEDS: Enoxaparin Sodium 40 MG/0.4 ML SYRINGE SC SCH ×2 (08:48→08:57)
[2021-08-15] MEDS: Folic Acid 1 MG TAB PO SCH (08:50)
[2021-08-15] MEDS ORDERED: NIFEdipine XL 60 MG TAB PO SCH (09:00)
[2021-08-15] MEDS ORDERED: Meloxicam 15 MG TAB PO SCH (09:00)
[2021-08-15] MEDS: Lisinopril 10 MG TAB PO SCH (09:54)
[2021-08-15 12:36] VITALS: BP 128/63; TEMP 98.1
== END 2021-08-15 14:13 | disposition home or self-care (01) | DRG 206 ==
LOC: 2NO 14:16
PROVIDERS: ADMIT Internal Medicine; ATTEND Internal Medicine
DX: M94.0 Chondrocostal junction syndrome [Tietze] (principal); E87.1 Hypo-osmolality and hyponatremia; Z23 Encounter for immunization; E78.5 Hyperlipidemia, unspecified; I10 Essential (primary) hypertension; E78.00 Pure hypercholesterolemia, unspecified; Z96.652 Presence of left artificial knee joint; F17.210 Nicotine dependence, cigarettes, uncomplicated; G89.29 Other chronic pain; I08.3 Combined rheumatic disorders of mitral, aortic and tricuspid valves; I25.10 Atherosclerotic heart disease of native coronary artery without angina pectoris; E87.8 Other disorders of electrolyte and fluid balance, not elsewhere classified; D64.9 Anemia, unspecified; R59.0 Localized enlarged lymph nodes; Z28.21 Immunization not carried out because of patient refusal; Z79.899 Other long term (current) drug therapy; Z79.82 Long term (current) use of aspirin; Z80.1 Family history of malignant neoplasm of trachea, bronchus and lung; Z82.49 Family history of ischemic heart disease and other diseases of the circulatory system
CPT/HCPCS: 36415; 72146; 80048; 80061; 82533; 83930; 83935; 84300; 84439; 84443; 85007; 85027; 90471; 90732; 93306; 94760; G0009; J1650; J7050

== ENCOUNTER 2021-12-02 15:30 | Emergency (ER) | payer BC ==
[2021-12-02 16:25] LABS: #Basophils 0.1 thou/uL (0.0-0.2); #Lymphocytes 3.5 thou/uL (1.20-3.40); #Monocytes 0.4 thou/uL (0.11-0.59); #Neutrophils 5.4 thou/uL (1.40-6.50); %Basophils 0.8 % (0.0-1.0); %Eosinophils 0.5 % (0.0-10.0); %Lymphocytes 37.3 % (21.0-51.0); %Monocytes 4.5 % (0.0-10.0); %Neutrophils 56.9 % (42.0-75.0); Hemoglobin 12.6 g/dL (12.0-16.0); Mean Corpuscular HGB CONC 34.5 g/dL (32.0-36.0); Mean Corpuscular Hemoglobin 34.1 pg (27.0-31.0); Mean Corpuscular Volume 98.8 fL (78.0-98.0); Mean Platelet Volume 6.3 fL (7.4-10.4); Platelet Count 254 thou/uL (130-400); RBC Distribution Width 12.5 % (11.5-14.5); Red Blood Cell (RBC) Count 3.69 mill/uL (4.20-5.40); White Blood Cell (WBC) Count 9.5 thou/uL (4.8-10.8)
[2021-12-02 16:49] LABS: ALT (SGPT) 115 U/L (8-55); AST (SGOT) 187 U/L (5-34); Albumin 4.3 g/dL (3.5-5.0); Alkaline Phosphatase 336 U/L (40-110); Anion Gap 16 mmol/L (10-20); BUN (Urea Nitrogen) 7 mg/dL (9.8-20.1); Bilirubin, Total 0.4 mg/dL (0.2-1.2); Calc. Creatinine Clearance 0 mL/min (70-130); Calcium 9.1 mg/dL (7.8-10.44); Carbon Dioxide 24 mmol/L (22-29); Chloride 94 mmol/L (98-107); Globulin 2.7 g/dL (2.4-3.5); Glucose 67 mg/dL (70-105); Potassium 3.8 mmol/L (3.5-5.1); Sodium 130 mmol/L (136-145)
[2021-12-02 17:24] LABS: Phosphorus 2.1 mg/dL (2.3-4.7)
[2021-12-02] MEDS ORDERED: Ketorolac Tromethamine 30 MG/ML VIAL ONE (17:56)
[2021-12-02] MEDS ORDERED: Morphine 4 MG/ML VIAL ONE (18:33)
== END 2021-12-02 19:05 | disposition home or self-care (01) ==
LOC: ERS 15:30
DX: E87.1 Hypo-osmolality and hyponatremia (principal); M54.2 Cervicalgia; G89.29 Other chronic pain; I10 Essential (primary) hypertension; E78.00 Pure hypercholesterolemia, unspecified; F17.210 Nicotine dependence, cigarettes, uncomplicated; Z87.19 Personal history of other diseases of the digestive system; Z85.3 Personal history of malignant neoplasm of breast; Z79.899 Other long term (current) drug therapy
CPT/HCPCS: 36415; 71045; 76705; 80053; 82140; 83735; 83880; 84100; 84484; 85025; 94760; 96361; 96374; 96375; J1885; J2270

== ENCOUNTER 2021-12-05 15:44 | Inpatient (IN) | payer BC ==
[~2021-12-05 15:44] MED LIST: Iopamidol-370 76% 500 ML 1 ML ONE
[2021-12-05] MEDS ORDERED: Dicyclomine 20 MG/2 ML VIAL ONE (16:22)
[2021-12-05] MEDS ORDERED: Ondansetron PF 4 MG/2 ML Vial ONE ×2 (16:22→19:11)
[2021-12-05 16:50] LABS: #Lymphocytes 3.1 thou/uL (1.20-3.40); #Monocytes 0.4 thou/uL (0.11-0.59); #Neutrophils 5.8 thou/uL (1.40-6.50); %Basophils 0.1 % (0.0-1.0); %Eosinophils 0.3 % (0.0-10.0); %Lymphocytes 33.5 % (21.0-51.0); %Monocytes 4.5 % (0.0-10.0); %Neutrophils 61.5 % (42.0-75.0); Hemoglobin 12.6 g/dL (12.0-16.0); Mean Corpuscular HGB CONC 34.2 g/dL (32.0-36.0); Mean Corpuscular Hemoglobin 34.5 pg (27.0-31.0); Mean Platelet Volume 6.3 fL (7.4-10.4); Platelet Count 242 thou/uL (130-400); RBC Distribution Width 12.7 % (11.5-14.5); Red Blood Cell (RBC) Count 3.66 mill/uL (4.20-5.40); White Blood Cell (WBC) Count 9.4 thou/uL (4.8-10.8)
[2021-12-05 17:00] LABS: INR-International Normal Ratio 1.1; PTT 32.3 sec (22.9-36.1); Prothrombin Time 14.8 sec (12.0-14.7)
[2021-12-05 17:11] LABS: ALT (SGPT) 116 U/L (8-55); AST (SGOT) 115 U/L (5-34); Albumin 4.1 g/dL (3.5-5.0); Alkaline Phosphatase 317 U/L (40-110); Anion Gap 17 mmol/L (10-20); BUN (Urea Nitrogen) 6 mg/dL (9.8-20.1); Bilirubin, Total 0.6 mg/dL (0.2-1.2); Calc. Creatinine Clearance 0 mL/min (70-130); Calcium 8.8 mg/dL (7.8-10.44); Carbon Dioxide 23 mmol/L (22-29); Chloride 94 mmol/L (98-107); Globulin 2.7 g/dL (2.4-3.5); Glucose 83 mg/dL (70-105); Lipase 12 U/L (8-78); Potassium 3.8 mmol/L (3.5-5.1); Protein, Total 6.8 g/dL (6.0-8.3); Sodium 130 mmol/L (136-145)
[2021-12-05] MEDS ORDERED: Azithromycin 250 MG TAB ONE (18:03)
[2021-12-05] MEDS ORDERED: Ketorolac Tromethamine 30 MG/ML VIAL ONE (18:03)
[2021-12-05 19:01] LABS: Magnesium 1.6 mg/dL (1.6-2.6)
[2021-12-05] MEDS ORDERED: Morphine 4 MG/ML VIAL ONE (19:27)
[2021-12-05 19:46] LABS: Lactic Acid 3.3 mmol/L (0.5-2.2)
[2021-12-05] MEDS ORDERED: hydrALAZINE 20 MG/ML VIAL SLOW IVP PRN (19:51)
[2021-12-05] MEDS ORDERED: Artificial Tear Sol 15 ML BOT EA EYE PRN (20:27)
[2021-12-05 20:28] LABS: SARS-CoV-2 NAA Rapid Test Not Detected (NotDetected)
[2021-12-05 20:51] VITALS: BMI 23.3
[2021-12-05] MEDS: Sodium Chloride 0.9% 1,000 ML IV SCH (21:06)
[2021-12-05] MEDS: Sodium Chloride 1 GM TAB PO SCH (21:07)
[2021-12-05] MEDS: Nicotine 21 MG PATCH TD SCH (21:07)
[2021-12-05] MEDS: Morphine 2 MG/ML VIAL SLOW IVP PRN (21:14)
[2021-12-05] MEDS: Famotidine 20 MG TAB PO SCH (21:14)
[2021-12-05] MEDS: Atorvastatin Calcium 20 MG TAB PO SCH (21:14)
[2021-12-05] MEDS: Ondansetron PF 4 MG/2 ML Vial IVP PRN (22:13)
[2021-12-05] MEDS: hydrALAZINE 20 MG/ML VIAL SLOW IVP PRN (22:14)
[2021-12-06] MEDS ORDERED: Calcium Carbonate 500 MG ChewTAB PO PRN (00:27)
[2021-12-06] MEDS: Methocarbamol 500 MG TAB PO PRN (01:26)
[2021-12-06] MEDS: Morphine 2 MG/ML VIAL SLOW IVP PRN ×2 (01:27→06:50)
[2021-12-06] MEDS: Loperamide HCl 2 MG CAP PO PRN ×3 (01:59→15:35)
[2021-12-06] MEDS: Lorazepam 1 MG TAB PO PRN ×2 (02:01→21:50)
[2021-12-06] MEDS: Transdermal Patch Removal TOP SCH (03:59)
[2021-12-06 05:43] LABS: #Eosinphils 0.1 thou/uL (0.0-0.7); #Lymphocytes 3.6 thou/uL (1.20-3.40); #Monocytes 0.5 thou/uL (0.11-0.59); #Neutrophils 4.3 thou/uL (1.40-6.50); %Basophils 0.5 % (0.0-1.0); %Lymphocytes 42.2 % (21.0-51.0); %Monocytes 5.4 % (0.0-10.0); %Neutrophils 50.8 % (42.0-75.0); Hemoglobin 11.1 g/dL (12.0-16.0); Mean Corpuscular HGB CONC 32.9 g/dL (32.0-36.0); Mean Corpuscular Hemoglobin 33.6 pg (27.0-31.0); Mean Platelet Volume 6.5 fL (7.4-10.4); Platelet Count 199 thou/uL (130-400); RBC Distribution Width 12.7 % (11.5-14.5); White Blood Cell (WBC) Count 8.5 thou/uL (4.8-10.8)
[2021-12-06 06:01] LABS: ALT (SGPT) 80 U/L (8-55); AST (SGOT) 54 U/L (5-34); Albumin 3.5 g/dL (3.5-5.0); Alkaline Phosphatase 271 U/L (40-110); Anion Gap 14 mmol/L (10-20); BUN (Urea Nitrogen) 4 mg/dL (9.8-20.1); Bilirubin, Total 0.9 mg/dL (0.2-1.2); Calc. Creatinine Clearance 91 mL/min (70-130); Calcium 8.5 mg/dL (7.8-10.44); Carbon Dioxide 22 mmol/L (22-29); Chloride 100 mmol/L (98-107); Globulin 2.3 g/dL (2.4-3.5); Glucose 85 mg/dL (70-105); Potassium 3.5 mmol/L (3.5-5.1); Protein, Total 5.8 g/dL (6.0-8.3); Sodium 132 mmol/L (136-145)
[2021-12-06] MEDS: NIFEdipine XL 60 MG TAB PO SCH (08:27)
[2021-12-06] MEDS: Folic Acid 1 MG TAB PO SCH (08:28)
[2021-12-06] MEDS: Sodium Chloride 1 GM TAB PO SCH ×3 (08:28→20:11)
[2021-12-06] MEDS: Aspirin 81 mg Enteric Coated Tablet PO SCH (08:29)
[2021-12-06] MEDS: Famotidine 20 MG TAB PO SCH ×2 (08:29→20:02)
[2021-12-06] MEDS: Enoxaparin Sodium 30 MG/0.3 ML SYRINGE SC SCH (08:30)
[2021-12-06] MEDS: Ondansetron PF 4 MG/2 ML Vial IVP PRN ×3 (08:32→21:44)
[2021-12-06] MEDS ORDERED: NIFEdipine XL 60 MG TAB PO SCH (09:00)
[2021-12-06] MEDS: Sodium Chloride 0.9% 1,000 ML IV SCH (10:56)
[2021-12-06] MEDS: HYDROcodone/Acetaminophen 5/325 mg Tablet PO PRN ×4 (10:56→23:59)
[2021-12-06 13:26] LABS: Lactic Acid 3.5 mmol/L (0.5-2.2)
[2021-12-06] MEDS: Lidocaine 5% Patch TD SCH (15:34)
[2021-12-06] MEDS: Atorvastatin Calcium 20 MG TAB PO SCH (20:03)
[2021-12-06] MEDS: Nicotine 21 MG PATCH TD SCH (20:03)
[2021-12-07] MEDS: Sodium Chloride 0.9% 1,000 ML IV SCH ×2 (00:03→13:08)
[2021-12-07] MEDS: Ondansetron PF 4 MG/2 ML Vial IVP PRN ×3 (04:08→19:13)
[2021-12-07] MEDS: Methocarbamol 500 MG TAB PO PRN ×2 (04:09→14:54)
[2021-12-07] MEDS: HYDROcodone/Acetaminophen 5/325 mg Tablet PO PRN ×4 (04:09→19:12)
[2021-12-07] MEDS: Transdermal Patch Removal TOP SCH (04:14)
[2021-12-07 06:01] LABS: ALT (SGPT) 58 U/L (8-55); AST (SGOT) 37 U/L (5-34); Albumin 3.7 g/dL (3.5-5.0); Alkaline Phosphatase 291 U/L (40-110); Anion Gap 13 mmol/L (10-20); BUN (Urea Nitrogen) Less than 4 mg/dL (9.8-20.1); Bilirubin, Total 0.8 mg/dL (0.2-1.2); Calc. Creatinine Clearance 81 mL/min (70-130); Calcium 8.6 mg/dL (7.8-10.44); Carbon Dioxide 26 mmol/L (22-29); Chloride 101 mmol/L (98-107); Globulin 2.4 g/dL (2.4-3.5); Glucose 86 mg/dL (70-105); Magnesium 1.6 mg/dL (1.6-2.6); Potassium 3.5 mmol/L (3.5-5.1); Protein, Total 6.1 g/dL (6.0-8.3); Sodium 136 mmol/L (136-145)
[2021-12-07 06:15] LABS: Band 1 % (5-11); Eosinophils 1 % (0-10); Hypochromia SLIGHT = 6-15 cells (100X) (0-5/hpf); Lymphocytes 49 % (21-51); MDiff Complete? YES; Mean Platelet Volume 6.4 fL (7.4-10.4); Neutrophil 49 % (42-75); Platelet Count 196 thou/uL (130-400); Platelet Morphology Comment Appears Adequate; RBC Distribution Width 12.5 % (11.5-14.5); Red Blood Cell (RBC) Count 3.23 mill/uL (4.20-5.40); White Blood Cell (WBC) Count 6.2 thou/uL (4.8-10.8)
[2021-12-07] MEDS: Folic Acid 1 MG TAB PO SCH (08:46)
[2021-12-07] MEDS: Aspirin 81 mg Enteric Coated Tablet PO SCH (08:46)
[2021-12-07] MEDS: Famotidine 20 MG TAB PO SCH ×2 (08:46→20:46)
[2021-12-07] MEDS: Enoxaparin Sodium 30 MG/0.3 ML SYRINGE SC SCH (08:46)
[2021-12-07] MEDS: NIFEdipine XL 60 MG TAB PO SCH (08:47)
[2021-12-07] MEDS: Sodium Chloride 1 GM TAB PO SCH ×5 (08:47→20:47)
[2021-12-07 09:45] LABS: Lactic Acid 2.7 mmol/L (0.5-2.2)
[2021-12-07] MEDS: Lorazepam 1 MG TAB PO PRN ×2 (11:15→20:46)
[2021-12-07] MEDS: Lidocaine 5% Patch TD SCH (16:27)
[2021-12-07] MEDS: Nicotine 21 MG PATCH TD SCH (20:45)
[2021-12-07] MEDS: Atorvastatin Calcium 20 MG TAB PO SCH (20:46)
[2021-12-07] MEDS: Morphine 2 MG/ML VIAL SLOW IVP PRN (22:22)
[2021-12-08] MEDS: HYDROcodone/Acetaminophen 5/325 mg Tablet PO PRN ×3 (00:49→13:52)
[2021-12-08] MEDS: Sodium Chloride 0.9% 1,000 ML IV SCH ×2 (01:59→06:06)
[2021-12-08] MEDS: Transdermal Patch Removal TOP SCH (04:34)
[2021-12-08] MEDS: Methocarbamol 500 MG TAB PO PRN (04:34)
[2021-12-08] MEDS: Morphine 2 MG/ML VIAL SLOW IVP PRN ×4 (04:38→22:04)
[2021-12-08 05:19] LABS: #Basophils 0.1 thou/uL (0.0-0.2); #Eosinphils 0.1 thou/uL (0.0-0.7); #Lymphocytes 2.9 thou/uL (1.20-3.40); #Monocytes 0.3 thou/uL (0.11-0.59); %Basophils 0.8 % (0.0-1.0); %Eosinophils 1.2 % (0.0-10.0); %Lymphocytes 39.5 % (21.0-51.0); %Monocytes 4.6 % (0.0-10.0); Hemoglobin 11.4 g/dL (12.0-16.0); Mean Corpuscular HGB CONC 33.2 g/dL (32.0-36.0); Mean Corpuscular Hemoglobin 34.3 pg (27.0-31.0); Mean Platelet Volume 6.5 fL (7.4-10.4); Platelet Count 186 thou/uL (130-400); RBC Distribution Width 12.4 % (11.5-14.5); Red Blood Cell (RBC) Count 3.32 mill/uL (4.20-5.40); White Blood Cell (WBC) Count 7.4 thou/uL (4.8-10.8)
[2021-12-08 05:40] LABS: Lactic Acid 1.3 mmol/L (0.5-2.2)
[2021-12-08 05:42] LABS: ALT (SGPT) 45 U/L (8-55); AST (SGOT) 28 U/L (5-34); Albumin 3.8 g/dL (3.5-5.0); Alkaline Phosphatase 295 U/L (40-110); Anion Gap 14 mmol/L (10-20); BUN (Urea Nitrogen) 4 mg/dL (9.8-20.1); Bilirubin, Total 0.7 mg/dL (0.2-1.2); Calc. Creatinine Clearance 94 mL/min (70-130); Calcium 8.8 mg/dL (7.8-10.44); Carbon Dioxide 24 mmol/L (22-29); Chloride 100 mmol/L (98-107); Globulin 2.6 g/dL (2.4-3.5); Glucose 86 mg/dL (70-105); Magnesium 1.5 mg/dL (1.6-2.6); Potassium 3.4 mmol/L (3.5-5.1); Protein, Total 6.4 g/dL (6.0-8.3); Sodium 135 mmol/L (136-145)
[2021-12-08] MEDS: Aspirin 81 mg Enteric Coated Tablet PO SCH (09:01)
[2021-12-08] MEDS: NIFEdipine XL 60 MG TAB PO SCH (09:01)
[2021-12-08] MEDS: Enoxaparin Sodium 40 MG/0.4 ML SYRINGE SC SCH (09:01)
[2021-12-08] MEDS: Folic Acid 1 MG TAB PO SCH (09:01)
[2021-12-08] MEDS: Famotidine 20 MG TAB PO SCH ×2 (09:01→19:57)
[2021-12-08] MEDS: Sodium Chloride 1 GM TAB PO SCH ×4 (09:01→20:49)
[2021-12-08] MEDS: Ondansetron PF 4 MG/2 ML Vial IVP PRN (13:52)
[2021-12-08] MEDS: Lidocaine 5% Patch TD SCH (15:07)
[2021-12-08] MEDS: hydrALAZINE 20 MG/ML VIAL SLOW IVP PRN (19:56)
[2021-12-08] MEDS: Atorvastatin Calcium 20 MG TAB PO SCH (19:57)
[2021-12-08] MEDS: Lorazepam 1 MG TAB PO PRN (19:57)
[2021-12-08] MEDS: Nicotine 21 MG PATCH TD SCH (20:02)
[2021-12-09] MEDS: HYDROcodone/Acetaminophen 5/325 mg Tablet PO PRN ×3 (01:25→14:23)
[2021-12-09] MEDS: Morphine 2 MG/ML VIAL SLOW IVP PRN ×2 (03:50→10:02)
[2021-12-09] MEDS: Transdermal Patch Removal TOP SCH (03:51)
[2021-12-09] MEDS: Sodium Chloride 0.9% 1,000 ML IV SCH ×2 (05:08→17:00)
[2021-12-09 05:44] LABS: #Basophils 0.1 thou/uL (0.0-0.2); #Eosinphils 0.1 thou/uL (0.0-0.7); #Lymphocytes 2.8 thou/uL (1.20-3.40); #Monocytes 0.4 thou/uL (0.11-0.59); #Neutrophils 3.6 thou/uL (1.40-6.50); %Eosinophils 1.6 % (0.0-10.0); %Lymphocytes 40.4 % (21.0-51.0); %Monocytes 5.2 % (0.0-10.0); %Neutrophils 51.8 % (42.0-75.0); Hemoglobin 11.9 g/dL (12.0-16.0); Mean Corpuscular HGB CONC 32.9 g/dL (32.0-36.0); Mean Corpuscular Hemoglobin 33.9 pg (27.0-31.0); Mean Platelet Volume 6.8 fL (7.4-10.4); Platelet Count 198 thou/uL (130-400); RBC Distribution Width 12.5 % (11.5-14.5); Red Blood Cell (RBC) Count 3.51 mill/uL (4.20-5.40); White Blood Cell (WBC) Count 6.9 thou/uL (4.8-10.8)
[2021-12-09 07:58] VITALS: BP 152/76; TEMP 97.7
[2021-12-09] MEDS: Sodium Chloride 1 GM TAB PO SCH ×2 (08:03→13:21)
[2021-12-09] MEDS: NIFEdipine XL 60 MG TAB PO SCH (08:08)
[2021-12-09] MEDS: Famotidine 20 MG TAB PO SCH (08:08)
[2021-12-09] MEDS: Folic Acid 1 MG TAB PO SCH (08:09)
[2021-12-09] MEDS: Aspirin 81 mg Enteric Coated Tablet PO SCH (08:09)
[2021-12-09] MEDS: Ondansetron PF 4 MG/2 ML Vial IVP PRN (08:09)
[2021-12-09] MEDS: Enoxaparin Sodium 40 MG/0.4 ML SYRINGE SC SCH (08:09)
[2021-12-09] MEDS ORDERED: Potassium Chloride 20 MEQ TAB PO SCH (10:00)
[2021-12-09] MEDS ORDERED: Magnesium 2 GM/50 ML(in water) 2 GM in Premix Bag 1 BAG IVPB SCH (10:00)
[2021-12-09] MEDS: Methocarbamol 500 MG TAB PO PRN (11:01)
[2021-12-09] MEDS: Lidocaine 5% Patch TD SCH (17:00)
== END 2021-12-09 18:05 | disposition home or self-care (01) | DRG 392 ==
LOC: ERS 15:44 → MSONC 19:13 → OBSVTOIN 12-08 09:24
PROVIDERS: ADMIT Hospitalist; ATTEND Hospitalist
DX: K52.9 Noninfective gastroenteritis and colitis, unspecified (principal); E87.1 Hypo-osmolality and hyponatremia; Z20.822 Contact with and (suspected) exposure to COVID-19; E83.42 Hypomagnesemia; E87.6 Hypokalemia; I10 Essential (primary) hypertension; E78.5 Hyperlipidemia, unspecified; M54.9 Dorsalgia, unspecified; M54.2 Cervicalgia; G89.29 Other chronic pain; E78.00 Pure hypercholesterolemia, unspecified; F41.9 Anxiety disorder, unspecified; F32.A Depression, unspecified; E86.0 Dehydration; Z96.652 Presence of left artificial knee joint; Z79.82 Long term (current) use of aspirin; Z79.899 Other long term (current) drug therapy; Z90.49 Acquired absence of other specified parts of digestive tract; Z98.890 Other specified postprocedural states
CPT/HCPCS: 36415; 74177; 80053; 83605; 83690; 83735; 84443; 85025; 85610; 85730; 87324; 87449; 94760; 96372; 96374; 96375; 96376; G0378; J0360; J0500; J1650; J1885; J2270; J2405; J3475; J7050

== ENCOUNTER 2022-02-24 11:20 | Outpatient (CLI) | payer BC | END 2022-02-24 11:21 | disposition home or self-care (01) | LOC: SCSMRI 11:20 | PROVIDERS: ATTEND Physician Assistant Medical | DX: R19.7 Diarrhea, unspecified (principal); R79.89 Other specified abnormal findings of blood chemistry; R93.2 Abnormal findings on diagnostic imaging of liver and biliary tract; K76.0 Fatty (change of) liver, not elsewhere classified; K65.4 Sclerosing mesenteritis; Z72.0 Tobacco use | CPT/HCPCS: 74183 ==

== ENCOUNTER 2022-03-04 15:38 | Outpatient (CLI) | payer BC | END 2022-03-04 15:39 | disposition home or self-care (01) | LOC: BICCT 15:38 | PROVIDERS: ATTEND Family Medicine | DX: Z12.2 Encounter for screening for malignant neoplasm of respiratory organs (principal); F17.210 Nicotine dependence, cigarettes, uncomplicated; R91.8 Other nonspecific abnormal finding of lung field; R59.0 Localized enlarged lymph nodes | CPT/HCPCS: 71271 ==

== ENCOUNTER 2022-03-08 15:17 | Emergency (ER) | payer BC ==
[2022-03-08 15:49] LABS: #Basophils 0.1 thou/uL (0.0-0.2); #Eosinphils 0.1 thou/uL (0.0-0.7); #Lymphocytes 3.3 thou/uL (1.20-3.40); #Monocytes 0.4 thou/uL (0.11-0.59); #Neutrophils 4.9 thou/uL (1.40-6.50); %Basophils 0.8 % (0.0-1.0); %Eosinophils 0.7 % (0.0-10.0); %Lymphocytes 37.6 % (21.0-51.0); %Monocytes 4.7 % (0.0-10.0); %Neutrophils 56.3 % (42.0-75.0); Hemoglobin 13.1 g/dL (12.0-16.0); Mean Corpuscular HGB CONC 33.8 g/dL (32.0-36.0); Mean Corpuscular Hemoglobin 35.2 pg (27.0-31.0); Mean Platelet Volume 7.6 fL (7.4-10.4); Platelet Count 228 thou/uL (130-400); RBC Distribution Width 11.3 % (11.5-14.5); Red Blood Cell (RBC) Count 3.71 mill/uL (4.20-5.40); White Blood Cell (WBC) Count 8.7 thou/uL (4.8-10.8)
[2022-03-08 16:10] LABS: ALT (SGPT) 44 U/L (8-55); AST (SGOT) 44 U/L (5-34); Albumin 4.6 g/dL (3.5-5.0); Alkaline Phosphatase 230 U/L (40-110); Anion Gap 16 mmol/L (10-20); BUN (Urea Nitrogen) 4 mg/dL (9.8-20.1); Bilirubin, Total 0.8 mg/dL (0.2-1.2); Calc. Creatinine Clearance 0 mL/min (70-130); Calcium 9.3 mg/dL (7.8-10.44); Carbon Dioxide 25 mmol/L (22-29); Chloride 92 mmol/L (98-107); Estimated GFR 98; Globulin 2.7 g/dL (2.4-3.5); Glucose 94 mg/dL (70-105); Lipase 10 U/L (8-78); Potassium 3.7 mmol/L (3.5-5.1); Protein, Total 7.3 g/dL (6.0-8.3); Sodium 129 mmol/L (136-145)
[2022-03-08] MEDS ORDERED: Ketorolac Tromethamine 30 MG/ML VIAL ONE (17:35)
[2022-03-08] MEDS ORDERED: Diazepam 5 MG TAB ONE (17:35)
[2022-03-08 18:09] LABS: Troponin I Less than 0.010 ng/mL (< 0.028)
[2022-03-08] MEDS ORDERED: HYDROcodone/Acetaminophen 10/325 mg Tablet ONE (18:52)
== END 2022-03-08 19:03 | disposition home or self-care (01) ==
LOC: ERS 15:17
DX: R07.9 Chest pain, unspecified (principal); I10 Essential (primary) hypertension; E78.5 Hyperlipidemia, unspecified; E78.00 Pure hypercholesterolemia, unspecified; F17.210 Nicotine dependence, cigarettes, uncomplicated; Z79.899 Other long term (current) drug therapy
CPT/HCPCS: 36415; 71045; 71275; 74174; 80053; 83690; 84484; 85025; 93005; 96374; J1885; Q9967

== ENCOUNTER 2022-05-07 15:08 | Observation (INO) | payer BC ==
[2022-05-07] MEDS ORDERED: Bupivacaine 0.5% 10 ML VIAL ONE (15:41)
[2022-05-07 15:45] LABS: #Basophils 0.1 thou/uL (0.0-0.2); #Lymphocytes 4.5 thou/uL (1.20-3.40); #Monocytes 0.5 thou/uL (0.11-0.59); #Neutrophils 5.1 thou/uL (1.40-6.50); %Basophils 1.1 % (0.0-1.0); %Eosinophils 0.4 % (0.0-10.0); %Lymphocytes 43.8 % (21.0-51.0); %Monocytes 4.6 % (0.0-10.0); %Neutrophils 50.1 % (42.0-75.0); Hemoglobin 13.9 g/dL (12.0-16.0); Mean Corpuscular HGB CONC 33.6 g/dL (32.0-36.0); Mean Corpuscular Hemoglobin 35.3 pg (27.0-31.0); Mean Platelet Volume 7.2 fL (7.4-10.4); Platelet Count 240 10x3/uL (130-400); RBC Distribution Width 13.1 % (11.5-14.5); Red Blood Cell (RBC) Count 3.94 mill/uL (4.20-5.40); White Blood Cell (WBC) Count 10.2 10x3/uL (4.8-10.8)
[2022-05-07] MEDS ORDERED: Dexamethasone 10 MG/ML VIAL ONE (15:52)
[2022-05-07 15:59] LABS: Albumin 4.7 g/dL (3.5-5.0); Calcium 9.5 mg/dL (7.8-10.44); Chloride 90 mmol/L (98-107); Potassium 3.7 mmol/L (3.5-5.1); Sodium 127 mmol/L (136-145)
[2022-05-07 16:00] LABS: Globulin 3.3 g/dL (2.4-3.5); Glucose 78 mg/dL (70-105)
[2022-05-07 16:02] LABS: Bilirubin, Total 0.8 mg/dL (0.2-1.2); Carbon Dioxide 25 mmol/L (22-29)
[2022-05-07 16:03] LABS: Alkaline Phosphatase 186 U/L (40-110)
[2022-05-07 16:04] LABS: BUN (Urea Nitrogen) 10 mg/dL (9.8-20.1); Calc. Creatinine Clearance 0 mL/min (70-130); Estimated GFR 101
[2022-05-07 16:05] LABS: AST (SGOT) 24 U/L (5-34)
[2022-05-07 16:06] LABS: ALT (SGPT) 19 U/L (8-55)
[2022-05-07 16:11] LABS: Anion Gap 17 mmol/L (10-20)
[2022-05-07 16:42] LABS: Magnesium 1.7 mg/dL (1.6-2.6)
[2022-05-07] MEDS ORDERED: Cyclobenzaprine 10 MG TAB ONE (16:47)
[2022-05-07 18:44] VITALS: BMI 26.2
[2022-05-07] MEDS ORDERED: Morphine 4 MG/ML VIAL SLOW IVP SCH (19:30)
[2022-05-07] MEDS ORDERED: Ondansetron ODT 4 MG TAB PO PRN (19:56)
[2022-05-07] MEDS ORDERED: Acetaminophen 325 MG TAB PO PRN (19:56)
[2022-05-07] MEDS ORDERED: HYDROcodone/Acetaminophen 5/325 mg Tablet PO PRN (19:56)
[2022-05-07] MEDS ORDERED: Nitroglycerin 0.4 MG TAB (25 Tab Bottle) SL PRN (19:56)
[2022-05-07] MEDS ORDERED: Ondansetron PF 4 MG/2 ML Vial IVP PRN (19:56)
[2022-05-07] MEDS ORDERED: cloNIDine 0.1 MG TAB PO PRN (20:46)
[2022-05-07 20:56] LABS: Troponin I Less than 0.010 ng/mL (< 0.028)
[2022-05-07] MEDS ORDERED: Magnesium 2 GM/50 ML(in water) 2 GM in Premix Bag 1 BAG IVPB SCH (21:15)
[2022-05-07] MEDS: HYDROcodone/Acetaminophen 7.5/325 mg Tablet PO PRN (21:59)
[2022-05-07] MEDS: Atorvastatin Calcium 20 MG TAB PO SCH (21:59)
[2022-05-07] MEDS: Lisinopril 20 MG TAB PO SCH (21:59)
[2022-05-07] MEDS: Sodium Chloride 0.9% 1,000 ML IV SCH (22:00)
[2022-05-07 23:26] LABS: Troponin I Less than 0.010 ng/mL (< 0.028)
[2022-05-07] MEDS: Pregabalin 75 MG CAP PO PRN (23:55)
[2022-05-08 01:42] LABS: Hemoglobin A1c 4.2 % (4.0-6.0)
[2022-05-08] MEDS: Melatonin 3 MG TAB PO PRN ×2 (02:02→23:16)
[2022-05-08] MEDS: HYDROcodone/Acetaminophen 7.5/325 mg Tablet PO PRN ×4 (04:03→23:16)
[2022-05-08] MEDS: Methocarbamol 500 MG TAB PO PRN ×3 (04:04→23:17)
[2022-05-08 05:11] LABS: #Lymphocytes 1.3 thou/uL (1.20-3.40); #Monocytes 0.1 thou/uL (0.11-0.59); #Neutrophils 3.6 thou/uL (1.40-6.50); %Basophils 0.1 % (0.0-1.0); %Eosinophils 0.2 % (0.0-10.0); %Lymphocytes 26.3 % (21.0-51.0); %Monocytes 2.5 % (0.0-10.0); %Neutrophils 70.9 % (42.0-75.0); Hemoglobin 11.9 g/dL (12.0-16.0); Mean Corpuscular HGB CONC 32.5 g/dL (32.0-36.0); Mean Corpuscular Hemoglobin 34.7 pg (27.0-31.0); Mean Platelet Volume 7.4 fL (7.4-10.4); Platelet Count 202 10x3/uL (130-400); Red Blood Cell (RBC) Count 3.42 mill/uL (4.20-5.40); White Blood Cell (WBC) Count 5.1 10x3/uL (4.8-10.8)
[2022-05-08 05:26] LABS: Anion Gap 12 mmol/L (10-20); BUN (Urea Nitrogen) 8 mg/dL (9.8-20.1); Calc. Creatinine Clearance 116 mL/min (70-130); Calcium 8.5 mg/dL (7.8-10.44); Carbon Dioxide 23 mmol/L (22-29); Chloride 97 mmol/L (98-107); Estimated GFR 107; Glucose 113 mg/dL (70-105); Potassium 4.2 mmol/L (3.5-5.1); Sodium 128 mmol/L (136-145)
[2022-05-08] MEDS ORDERED: Enoxaparin Sodium 30 MG/0.3 ML SYRINGE SC SCH (09:00)
[2022-05-08] MEDS: Lisinopril 20 MG TAB PO SCH ×3 (10:03→20:49)
[2022-05-08] MEDS: NIFEdipine XL 30 MG TAB PO SCH (10:03)
[2022-05-08] MEDS: Aspirin Chewable 81 MG TAB PO SCH (10:03)
[2022-05-08] MEDS ORDERED: Midazolam HCl 2 mg/2 ml Vial SLOW IVP SCH (12:50)
[2022-05-08 13:38] LABS: Anion Gap 14 mmol/L (10-20); BUN (Urea Nitrogen) 8 mg/dL (9.8-20.1); Calc. Creatinine Clearance 89 mL/min (70-130); Calcium 9.2 mg/dL (7.8-10.44); Carbon Dioxide 23 mmol/L (22-29); Chloride 97 mmol/L (98-107); Estimated GFR 100; Glucose 91 mg/dL (70-105); Potassium 4.1 mmol/L (3.5-5.1); Sodium 130 mmol/L (136-145)
[2022-05-08] MEDS: Sodium Chloride 0.9% 1,000 ML IV SCH ×2 (13:39→23:17)
[2022-05-08] MEDS ORDERED: Regadenoson 0.4 MG/5 ML SYRINGE ONE (13:47)
[2022-05-08 17:21] LABS: Anion Gap 17 mmol/L (10-20); BUN (Urea Nitrogen) 8 mg/dL (9.8-20.1); Calc. Creatinine Clearance 96 mL/min (70-130); Calcium 8.8 mg/dL (7.8-10.44); Carbon Dioxide 20 mmol/L (22-29); Chloride 98 mmol/L (98-107); Estimated GFR 102; Glucose 86 mg/dL (70-105); Potassium 3.7 mmol/L (3.5-5.1); Sodium 131 mmol/L (136-145)
[2022-05-08] MEDS: Atorvastatin Calcium 20 MG TAB PO SCH (20:49)
[2022-05-09] MEDS: HYDROcodone/Acetaminophen 7.5/325 mg Tablet PO PRN ×4 (05:29→21:39)
[2022-05-09] MEDS: Methocarbamol 500 MG TAB PO PRN ×3 (05:29→16:23)
[2022-05-09 05:57] LABS: Anion Gap 13 mmol/L (10-20); BUN (Urea Nitrogen) 8 mg/dL (9.8-20.1); Calc. Creatinine Clearance 100 mL/min (70-130); Calcium 8.6 mg/dL (7.8-10.44); Carbon Dioxide 24 mmol/L (22-29); Chloride 102 mmol/L (98-107); Estimated GFR 103; Glucose 96 mg/dL (70-105); Potassium 3.8 mmol/L (3.5-5.1); Sodium 135 mmol/L (136-145)
[2022-05-09] MEDS ORDERED: Enoxaparin Sodium 40 MG/0.4 ML SYRINGE SC SCH (09:00)
[2022-05-09] MEDS: Aspirin Chewable 81 MG TAB PO SCH (09:44)
[2022-05-09] MEDS: Lisinopril 20 MG TAB PO SCH ×2 (09:45→21:42)
[2022-05-09] MEDS: NIFEdipine XL 30 MG TAB PO SCH (09:45)
[2022-05-09] MEDS ORDERED: Dexamethasone 4 mg/ml Vial SLOW IVP SCH (12:45)
[2022-05-09] MEDS: Sodium Chloride 0.9% 1,000 ML IV SCH ×2 (15:01→23:52)
[2022-05-09] MEDS: Pregabalin 75 MG CAP PO PRN (15:31)
[2022-05-09] MEDS: Dexamethasone 4 MG TAB PO SCH ×2 (17:54→23:52)
[2022-05-09] MEDS ORDERED: Melatonin 3 MG TAB PO PRN (20:09)
[2022-05-09] MEDS ORDERED: Zolpidem Tartrate 5 MG TAB PO PRN (20:24)
[2022-05-09] MEDS: Atorvastatin Calcium 20 MG TAB PO SCH (21:38)
[2022-05-10] MEDS: Pregabalin 75 MG CAP PO PRN ×2 (02:21→10:37)
[2022-05-10] MEDS: HYDROcodone/Acetaminophen 7.5/325 mg Tablet PO PRN ×4 (02:22→14:25)
[2022-05-10] MEDS: Sodium Chloride 0.9% 1,000 ML IV SCH (05:10)
[2022-05-10] MEDS: Dexamethasone 4 MG TAB PO SCH ×2 (05:10→13:30)
[2022-05-10] MEDS: Methocarbamol 500 MG TAB PO PRN ×3 (05:24→13:30)
[2022-05-10 07:04] LABS: Anion Gap 14 mmol/L (10-20); BUN (Urea Nitrogen) 8 mg/dL (9.8-20.1); Calc. Creatinine Clearance 100 mL/min (70-130); Carbon Dioxide 25 mmol/L (22-29); Chloride 96 mmol/L (98-107); Potassium 3.7 mmol/L (3.5-5.1); Sodium 131 mmol/L (136-145)
[2022-05-10 07:05] LABS: Calcium 9.1 mg/dL (7.8-10.44); Estimated GFR 104; Glucose 119 mg/dL (70-105); Magnesium 1.6 mg/dL (1.6-2.6)
[2022-05-10] MEDS ORDERED: Dexamethasone 4 MG TAB PO SCH (08:00)
[2022-05-10] MEDS: NIFEdipine XL 30 MG TAB PO SCH (09:22)
[2022-05-10] MEDS: Aspirin Chewable 81 MG TAB PO SCH (09:22)
[2022-05-10] MEDS: Lisinopril 20 MG TAB PO SCH (09:23)
[2022-05-10 12:30] VITALS: BP 158/85; TEMP 97.8
[2022-05-11] MEDS ORDERED: Dexamethasone 1 MG TAB PO SCH (18:00)
[2022-05-13] MEDS ORDERED: Dexamethasone 1 MG TAB PO SCH (18:00)
[2022-05-15] MEDS ORDERED: Dexamethasone 1 MG TAB PO SCH (18:00)
== END 2022-05-10 14:35 | disposition home or self-care (01) ==
LOC: ERS 15:08 → 2SW 16:54 → SJJU 05-09 14:12
PROVIDERS: ADMIT Internal Medicine; ATTEND Internal Medicine
DX: R07.89 Other chest pain (principal); R20.2 Paresthesia of skin; E87.1 Hypo-osmolality and hyponatremia; K52.9 Noninfective gastroenteritis and colitis, unspecified; G89.29 Other chronic pain; M54.2 Cervicalgia; M54.9 Dorsalgia, unspecified; F17.210 Nicotine dependence, cigarettes, uncomplicated; M43.12 Spondylolisthesis, cervical region; M48.02 Spinal stenosis, cervical region; M51.34 Other intervertebral disc degeneration, thoracic region; R00.0 Tachycardia, unspecified; I12.9 Hypertensive chronic kidney disease with stage 1 through stage 4 chronic kidney disease, or unspecified chronic kidney disease; N18.2 Chronic kidney disease, stage 2 (mild); D63.1 Anemia in chronic kidney disease; Z85.3 Personal history of malignant neoplasm of breast; Z79.899 Other long term (current) drug therapy; Z20.822 Contact with and (suspected) exposure to COVID-19
CPT/HCPCS: 20552; 36415; 71045; 72141; 72146; 78452; 80048; 80053; 82607; 83036; 83735; 83930; 83935; 84300; 84484; 85025; 93005; 93017; 93306; 94760; 96374; 96375; 96376; A9500; G0378; J1100; J2250; J2270; J2785; J3475; J3490; J7050; J8540; U0003; U0005

== ENCOUNTER 2022-05-31 07:42 | Day surgery (SDC) | payer BC ==
[2022-05-27 13:52] VITALS: BMI 25.6
[2022-05-31 08:25] LABS: #Lymphocytes 2.8 thou/uL (1.20-3.40); #Monocytes 0.7 thou/uL (0.11-0.59); #Neutrophils 9.7 thou/uL (1.40-6.50); %Basophils 0.4 % (0.0-1.0); %Eosinophils 0.3 % (0.0-10.0); %Neutrophils 73.3 % (42.0-75.0); Hemoglobin 13.2 g/dL (12.0-16.0); Mean Corpuscular Hemoglobin 34.7 pg (27.0-31.0); Mean Platelet Volume 6.6 fL (7.4-10.4); Platelet Count 367 10x3/uL (130-400); RBC Distribution Width 12.5 % (11.5-14.5); White Blood Cell (WBC) Count 13.2 10x3/uL (4.8-10.8)
[2022-05-31 08:30] LABS: INR-International Normal Ratio 0.9; PTT 27.8 sec (22.9-36.1); Prothrombin Time 12.9 sec (12.0-14.7)
[2022-05-31] MEDS ORDERED: Lidocaine 1% PF 5 ML VIAL ONE (08:46)
[2022-05-31] MEDS ORDERED: Sodium Bicarbonate 2.5 MEQ/5 ML VIAL ONE (08:46)
[2022-05-31] MEDS ORDERED: HYDROcodone/Acetaminophen 5/325 mg Tablet ONE (09:45)
[2022-05-31 10:17] VITALS: BP 137/77; TEMP 98
== END 2022-05-31 11:05 | disposition home or self-care (01) ==
LOC: ULT 07:42
PROVIDERS: ATTEND Physician Assistant Medical
PROC: 0FD23ZX Extraction of Left Lobe Liver, Percutaneous Approach, Diagnostic (ICD-10-PCS; principal; 2022-05-31)
DX: K76.0 Fatty (change of) liver, not elsewhere classified (principal); E78.00 Pure hypercholesterolemia, unspecified; I10 Essential (primary) hypertension; G89.29 Other chronic pain; M54.9 Dorsalgia, unspecified; E87.1 Hypo-osmolality and hyponatremia; F17.210 Nicotine dependence, cigarettes, uncomplicated; K52.9 Noninfective gastroenteritis and colitis, unspecified; Z85.3 Personal history of malignant neoplasm of breast; Z79.82 Long term (current) use of aspirin; Z79.899 Other long term (current) drug therapy
CPT/HCPCS: 36415; 47000; 76942; 85025; 85610; 85730; 88307; 88313

== ENCOUNTER 2022-07-05 02:57 | Inpatient (IN) | payer BC ==
[2022-07-06] MEDS ORDERED: HYDROcodone/Acetaminophen 5/325 mg Tablet ONE ×3 (02:41→11:09)
[2022-07-06] MEDS ORDERED: Potassium Chloride 20 MEQ TAB ONE (09:07)
[2022-07-06] MEDS ORDERED: Ondansetron PF 4 MG/2 ML Vial ONE (11:09)
[2022-07-06] MEDS ORDERED: Calcium Carbonate 500 MG ChewTAB PO PRN (14:46)
[2022-07-06] MEDS ORDERED: Guaifenesin DM 100-10/5 ML UDCUP PO PRN (14:46)
[2022-07-06] MEDS ORDERED: Albuterol 2.5 MG/0.5 ML NEB NEB PRN (14:57)
[2022-07-06] MEDS ORDERED: Pregabalin 75 MG CAP PO PRN (15:00)
[2022-07-06 15:26] VITALS: BMI 25.9
[2022-07-06] MEDS ORDERED: FLU VACC QS2022-23(6MOS UP)/PF 60 MCG/0.5 ML SYRINGE IM ONE (15:45)
[2022-07-06] MEDS: HYDROcodone/Acetaminophen 5/325 mg Tablet PO PRN ×2 (16:11→22:05)
[2022-07-06] MEDS: Atorvastatin Calcium 20 MG TAB PO SCH (22:05)
[2022-07-06] MEDS: Methocarbamol 500 MG TAB PO PRN (22:09)
[2022-07-06] MEDS: Doxycycline 100 MG CAP PO SCH (22:09)
[2022-07-07] MEDS: HYDROcodone/Acetaminophen 5/325 mg Tablet PO PRN ×4 (04:22→23:13)
[2022-07-07 07:13] LABS: #Basophils 0.1 thou/uL (0.0-0.2); #Eosinphils 0.1 thou/uL (0.0-0.7); #Lymphocytes 2.4 thou/uL (1.20-3.40); #Monocytes 0.5 thou/uL (0.11-0.59); #Neutrophils 3.2 thou/uL (1.40-6.50); %Eosinophils 1.9 % (0.0-10.0); %Lymphocytes 38.5 % (21.0-51.0); %Monocytes 7.3 % (0.0-10.0); %Neutrophils 51.3 % (42.0-75.0); Hemoglobin 12.6 g/dL (12.0-16.0); Mean Corpuscular HGB CONC 33.8 g/dL (32.0-36.0); Mean Corpuscular Hemoglobin 34.8 pg (27.0-31.0); Mean Platelet Volume 5.9 fL (7.4-10.4); Platelet Count 394 10x3/uL (130-400); RBC Distribution Width 11.7 % (11.5-14.5); Red Blood Cell (RBC) Count 3.62 mill/uL (4.20-5.40); White Blood Cell (WBC) Count 6.3 10x3/uL (4.8-10.8)
[2022-07-07 07:33] LABS: ALT (SGPT) 14 U/L (8-55); AST (SGOT) 20 U/L (5-34); Albumin 3.4 g/dL (3.5-5.0); Alkaline Phosphatase 138 U/L (40-110); Anion Gap 14 mmol/L (10-20); BUN (Urea Nitrogen) 4 mg/dL (9.8-20.1); Bilirubin, Total 0.4 mg/dL (0.2-1.2); Calc. Creatinine Clearance 117 mL/min (70-130); Carbon Dioxide 27 mmol/L (22-29); Chloride 93 mmol/L (98-107); Estimated GFR 107; Globulin 3.3 g/dL (2.4-3.5); Glucose 79 mg/dL (70-105); Potassium 3.4 mmol/L (3.5-5.1); Protein, Total 6.7 g/dL (6.0-8.3); Sodium 131 mmol/L (136-145)
[2022-07-07] MEDS: Doxycycline 100 MG CAP PO SCH ×2 (09:21→21:37)
[2022-07-07] MEDS: NIFEdipine XL 30 MG TAB PO SCH (09:21)
[2022-07-07] MEDS: Aspirin Chewable 81 MG TAB PO SCH (09:21)
[2022-07-07] MEDS: Ondansetron PF 4 MG/2 ML Vial IVP PRN ×3 (10:54→23:12)
[2022-07-07] MEDS: Methocarbamol 500 MG TAB PO PRN (15:16)
[2022-07-07] MEDS: Atorvastatin Calcium 20 MG TAB PO SCH (21:37)
[2022-07-08] MEDS: HYDROcodone/Acetaminophen 5/325 mg Tablet PO PRN ×4 (05:34→23:36)
[2022-07-08] MEDS: Ondansetron PF 4 MG/2 ML Vial IVP PRN ×3 (05:37→17:29)
[2022-07-08 07:02] LABS: #Eosinphils 0.1 thou/uL (0.0-0.7); #Lymphocytes 1.4 thou/uL (1.20-3.40); #Monocytes 0.2 thou/uL (0.11-0.59); #Neutrophils 3.7 thou/uL (1.40-6.50); %Basophils 0.5 % (0.0-1.0); %Eosinophils 1.5 % (0.0-10.0); %Lymphocytes 25.8 % (21.0-51.0); %Monocytes 3.6 % (0.0-10.0); %Neutrophils 68.6 % (42.0-75.0); Hemoglobin 12.7 g/dL (12.0-16.0); Mean Corpuscular HGB CONC 33.8 g/dL (32.0-36.0); Mean Corpuscular Hemoglobin 34.3 pg (27.0-31.0); Mean Platelet Volume 5.8 fL (7.4-10.4); Platelet Count 404 10x3/uL (130-400); RBC Distribution Width 11.7 % (11.5-14.5); Red Blood Cell (RBC) Count 3.69 mill/uL (4.20-5.40); White Blood Cell (WBC) Count 5.4 10x3/uL (4.8-10.8)
[2022-07-08 07:35] LABS: Anion Gap 12 mmol/L (10-20); BUN (Urea Nitrogen) 5 mg/dL (9.8-20.1); Calc. Creatinine Clearance 96 mL/min (70-130); Calcium 9.3 mg/dL (7.8-10.44); Carbon Dioxide 27 mmol/L (22-29); Chloride 94 mmol/L (98-107); Estimated GFR 103; Glucose 103 mg/dL (70-105); Sodium 129 mmol/L (136-145)
[2022-07-08] MEDS: NIFEdipine XL 30 MG TAB PO SCH (08:46)
[2022-07-08] MEDS: Doxycycline 100 MG CAP PO SCH ×2 (08:46→21:50)
[2022-07-08] MEDS: Aspirin Chewable 81 MG TAB PO SCH (08:46)
[2022-07-08] MEDS ORDERED: Bisacodyl 10 MG SUPP PR PRN (16:15)
[2022-07-08] MEDS ORDERED: Polyethylene Glycol 3350 17 GM Packet PO PRN (16:15)
[2022-07-08] MEDS ORDERED: Promethazine HCl 12.5 MG in Sodium Chloride 0.9% 50 ML IVPB SCH (19:15)
[2022-07-08] MEDS: Atorvastatin Calcium 20 MG TAB PO SCH (21:50)
[2022-07-09] MEDS: HYDROcodone/Acetaminophen 5/325 mg Tablet PO PRN ×3 (05:25→17:50)
[2022-07-09] MEDS: Ondansetron PF 4 MG/2 ML Vial IVP PRN ×3 (05:29→17:51)
[2022-07-09 06:33] LABS: #Eosinphils 0.1 thou/uL (0.0-0.7); #Monocytes 0.3 thou/uL (0.11-0.59); #Neutrophils 3.8 thou/uL (1.40-6.50); %Basophils 0.4 % (0.0-1.0); %Eosinophils 1.3 % (0.0-10.0); %Lymphocytes 32.2 % (21.0-51.0); %Monocytes 4.2 % (0.0-10.0); %Neutrophils 61.9 % (42.0-75.0); Hemoglobin 12.5 g/dL (12.0-16.0); Mean Corpuscular HGB CONC 34.4 g/dL (32.0-36.0); Mean Corpuscular Hemoglobin 34.6 pg (27.0-31.0); Mean Platelet Volume 5.8 fL (7.4-10.4); Platelet Count 410 10x3/uL (130-400); RBC Distribution Width 11.9 % (11.5-14.5); Red Blood Cell (RBC) Count 3.62 mill/uL (4.20-5.40); White Blood Cell (WBC) Count 6.1 10x3/uL (4.8-10.8)
[2022-07-09 06:53] LABS: Anion Gap 14 mmol/L (10-20); BUN (Urea Nitrogen) 6 mg/dL (9.8-20.1); Calc. Creatinine Clearance 90 mL/min (70-130); Carbon Dioxide 27 mmol/L (22-29); Chloride 94 mmol/L (98-107); Estimated GFR 101; Glucose 120 mg/dL (70-105); Potassium 3.8 mmol/L (3.5-5.1); Sodium 131 mmol/L (136-145)
[2022-07-09] MEDS: Doxycycline 100 MG CAP PO SCH ×2 (08:15→20:40)
[2022-07-09] MEDS: Saccharomyces boulardii 250 MG CAP PO SCH (08:15)
[2022-07-09] MEDS: NIFEdipine XL 30 MG TAB PO SCH (08:15)
[2022-07-09] MEDS: Senokot S 8.6-50 MG TAB PO PRN (08:16)
[2022-07-09] MEDS: Aspirin Chewable 81 MG TAB PO SCH (08:16)
[2022-07-09] MEDS ORDERED: Polyethylene Glycol 3350 17 GM Packet PO SCH (09:00)
[2022-07-09] MEDS ORDERED: Promethazine HCl 12.5 MG in Sodium Chloride 0.9% 50 ML IVPB SCH (12:30)
[2022-07-09] MEDS: Atorvastatin Calcium 20 MG TAB PO SCH (20:39)
[2022-07-09] MEDS: Polyethylene Glycol 3350 17 GM Packet PO SCH (20:39)
[2022-07-09] MEDS: Promethazine HCl 12.5 MG in Sodium Chloride 0.9% 50 ML IVPB PRN (21:19)
[2022-07-10] MEDS: HYDROcodone/Acetaminophen 5/325 mg Tablet PO PRN ×4 (00:12→20:42)
[2022-07-10] MEDS: Ondansetron PF 4 MG/2 ML Vial IVP PRN ×3 (00:13→11:49)
[2022-07-10] MEDS: Senokot S 8.6-50 MG TAB PO PRN (05:48)
[2022-07-10] MEDS: Promethazine HCl 12.5 MG in Sodium Chloride 0.9% 50 ML IVPB PRN ×3 (06:41→20:42)
[2022-07-10 06:57] LABS: #Basophils 0.1 thou/uL (0.0-0.2); #Eosinphils 0.2 thou/uL (0.0-0.7); #Monocytes 0.5 thou/uL (0.11-0.59); #Neutrophils 8.8 thou/uL (1.40-6.50); %Basophils 0.6 % (0.0-1.0); %Eosinophils 1.4 % (0.0-10.0); %Lymphocytes 23.7 % (21.0-51.0); %Neutrophils 70.3 % (42.0-75.0); Hemoglobin 13.2 g/dL (12.0-16.0); Mean Corpuscular HGB CONC 32.9 g/dL (32.0-36.0); Mean Corpuscular Hemoglobin 33.5 pg (27.0-31.0); Mean Platelet Volume 5.8 fL (7.4-10.4); Platelet Count 458 10x3/uL (130-400); RBC Distribution Width 11.9 % (11.5-14.5); Red Blood Cell (RBC) Count 3.95 mill/uL (4.20-5.40); White Blood Cell (WBC) Count 12.5 10x3/uL (4.8-10.8)
[2022-07-10 07:17] LABS: Anion Gap 15 mmol/L (10-20); BUN (Urea Nitrogen) 6 mg/dL (9.8-20.1); Calc. Creatinine Clearance 82 mL/min (70-130); Calcium 9.5 mg/dL (7.8-10.44); Carbon Dioxide 27 mmol/L (22-29); Chloride 92 mmol/L (98-107); Estimated GFR 95; Glucose 102 mg/dL (70-105); Potassium 3.6 mmol/L (3.5-5.1); Sodium 130 mmol/L (136-145)
[2022-07-10] MEDS: Saccharomyces boulardii 250 MG CAP PO SCH (08:22)
[2022-07-10] MEDS: NIFEdipine XL 30 MG TAB PO SCH (08:22)
[2022-07-10] MEDS: Aspirin Chewable 81 MG TAB PO SCH (08:22)
[2022-07-10] MEDS: Doxycycline 100 MG CAP PO SCH ×2 (08:22→20:42)
[2022-07-10] MEDS: Polyethylene Glycol 3350 17 GM Packet PO SCH ×2 (08:24→20:42)
[2022-07-10] MEDS: Atorvastatin Calcium 20 MG TAB PO SCH (20:42)
[2022-07-11] MEDS: Ondansetron PF 4 MG/2 ML Vial IVP PRN (03:27)
[2022-07-11] MEDS: HYDROcodone/Acetaminophen 5/325 mg Tablet PO PRN ×3 (03:28→20:40)
[2022-07-11 06:47] LABS: #Basophils 0.1 thou/uL (0.0-0.2); #Eosinphils 0.1 thou/uL (0.0-0.7); #Lymphocytes 2.7 thou/uL (1.20-3.40); #Monocytes 0.6 thou/uL (0.11-0.59); #Neutrophils 11.1 thou/uL (1.40-6.50); %Basophils 0.6 % (0.0-1.0); %Eosinophils 0.5 % (0.0-10.0); %Lymphocytes 18.8 % (21.0-51.0); %Monocytes 3.8 % (0.0-10.0); %Neutrophils 76.4 % (42.0-75.0); Hemoglobin 12.6 g/dL (12.0-16.0); Mean Corpuscular HGB CONC 33.2 g/dL (32.0-36.0); Mean Corpuscular Hemoglobin 33.2 pg (27.0-31.0); Platelet Count 399 10x3/uL (130-400); RBC Distribution Width 11.9 % (11.5-14.5); Red Blood Cell (RBC) Count 3.78 mill/uL (4.20-5.40); White Blood Cell (WBC) Count 14.5 10x3/uL (4.8-10.8)
[2022-07-11 07:12] LABS: Anion Gap 14 mmol/L (10-20); BUN (Urea Nitrogen) 8 mg/dL (9.8-20.1); Calc. Creatinine Clearance 92 mL/min (70-130); Calcium 9.4 mg/dL (7.8-10.44); Carbon Dioxide 26 mmol/L (22-29); Chloride 91 mmol/L (98-107); Estimated GFR 101; Glucose 106 mg/dL (70-105); Potassium 3.2 mmol/L (3.5-5.1); Sodium 128 mmol/L (136-145)
[2022-07-11] MEDS: NIFEdipine XL 30 MG TAB PO SCH (08:38)
[2022-07-11] MEDS: Aspirin Chewable 81 MG TAB PO SCH (08:39)
[2022-07-11] MEDS: Saccharomyces boulardii 250 MG CAP PO SCH (08:39)
[2022-07-11] MEDS: Doxycycline 100 MG CAP PO SCH ×2 (08:39→20:39)
[2022-07-11] MEDS: Polyethylene Glycol 3350 17 GM Packet PO SCH ×2 (08:39→20:39)
[2022-07-11] MEDS ORDERED: Promethazine HCl 12.5 MG in Sodium Chloride 0.9% 50 ML IVPB SCH (12:15)
[2022-07-11] MEDS ORDERED: Lactated Ringer's 1,000 ML IV SCH (13:45)
[2022-07-11] MEDS: Promethazine HCl 12.5 MG in Sodium Chloride 0.9% 50 ML IVPB PRN (20:39)
[2022-07-11] MEDS: Atorvastatin Calcium 20 MG TAB PO SCH (20:39)
[2022-07-12] MEDS: HYDROcodone/Acetaminophen 5/325 mg Tablet PO PRN ×3 (03:14→18:30)
[2022-07-12] MEDS: Promethazine HCl 12.5 MG in Sodium Chloride 0.9% 50 ML IVPB PRN ×2 (03:15→10:52)
[2022-07-12 06:25] LABS: #Basophils 0.1 thou/uL (0.0-0.2); #Eosinphils 0.1 thou/uL (0.0-0.7); #Lymphocytes 2.2 thou/uL (1.20-3.40); #Monocytes 0.4 thou/uL (0.11-0.59); #Neutrophils 10.9 thou/uL (1.40-6.50); %Basophils 0.7 % (0.0-1.0); %Monocytes 3.1 % (0.0-10.0); %Neutrophils 79.2 % (42.0-75.0); Hemoglobin 12.6 g/dL (12.0-16.0); Mean Corpuscular HGB CONC 32.6 g/dL (32.0-36.0); Mean Corpuscular Hemoglobin 32.9 pg (27.0-31.0); Mean Platelet Volume 6.1 fL (7.4-10.4); Platelet Count 405 10x3/uL (130-400); Red Blood Cell (RBC) Count 3.83 mill/uL (4.20-5.40); White Blood Cell (WBC) Count 13.7 10x3/uL (4.8-10.8)
[2022-07-12 06:48] LABS: Anion Gap 12 mmol/L (10-20); BUN (Urea Nitrogen) 5 mg/dL (9.8-20.1); Calc. Creatinine Clearance 88 mL/min (70-130); Calcium 9.1 mg/dL (7.8-10.44); Carbon Dioxide 29 mmol/L (22-29); Chloride 95 mmol/L (98-107); Estimated GFR 100; Glucose 117 mg/dL (70-105); Potassium 3.5 mmol/L (3.5-5.1); Sodium 132 mmol/L (136-145)
[2022-07-12] MEDS: Saccharomyces boulardii 250 MG CAP PO SCH (08:37)
[2022-07-12] MEDS: NIFEdipine XL 30 MG TAB PO SCH (08:37)
[2022-07-12] MEDS: Polyethylene Glycol 3350 17 GM Packet PO SCH (08:38)
[2022-07-12] MEDS: Aspirin Chewable 81 MG TAB PO SCH (08:38)
[2022-07-12] MEDS: Ondansetron PF 4 MG/2 ML Vial IVP PRN (15:50)
[2022-07-12] MEDS ORDERED: hydrALAZINE 20 MG/ML VIAL SLOW IVP SCH (16:00)
[2022-07-12] MEDS: Atorvastatin Calcium 20 MG TAB PO SCH (20:30)
[2022-07-12] MEDS: Prochlorperazine 10 MG/2 ML VIAL IM PRN (20:30)
[2022-07-13] MEDS: Prochlorperazine 10 MG/2 ML VIAL IM PRN ×3 (00:47→18:13)
[2022-07-13] MEDS: HYDROcodone/Acetaminophen 5/325 mg Tablet PO PRN ×3 (04:54→18:12)
[2022-07-13 06:41] LABS: #Basophils 0.1 thou/uL (0.0-0.2); #Eosinphils 0.1 thou/uL (0.0-0.7); #Lymphocytes 2.7 thou/uL (1.20-3.40); #Monocytes 0.4 thou/uL (0.11-0.59); #Neutrophils 7.6 thou/uL (1.40-6.50); %Lymphocytes 24.9 % (21.0-51.0); %Monocytes 3.5 % (0.0-10.0); %Neutrophils 69.6 % (42.0-75.0); Hemoglobin 13.4 g/dL (12.0-16.0); Mean Corpuscular Hemoglobin 35.7 pg (27.0-31.0); Mean Platelet Volume 6.3 fL (7.4-10.4); Platelet Count 428 10x3/uL (130-400); RBC Distribution Width 12.1 % (11.5-14.5); Red Blood Cell (RBC) Count 3.74 mill/uL (4.20-5.40); White Blood Cell (WBC) Count 10.9 10x3/uL (4.8-10.8)
[2022-07-13 07:11] LABS: ALT (SGPT) 12 U/L (8-55); AST (SGOT) 21 U/L (5-34); Albumin 3.9 g/dL (3.5-5.0); Alkaline Phosphatase 138 U/L (40-110); Anion Gap 15 mmol/L (10-20); BUN (Urea Nitrogen) 6 mg/dL (9.8-20.1); Bilirubin, Total 0.6 mg/dL (0.2-1.2); Calc. Creatinine Clearance 89 mL/min (70-130); Calcium 9.3 mg/dL (7.8-10.44); Carbon Dioxide 28 mmol/L (22-29); Chloride 93 mmol/L (98-107); Estimated GFR 101; Globulin 3.3 g/dL (2.4-3.5); Glucose 107 mg/dL (70-105); Lipase 11 U/L (8-78); Potassium 3.6 mmol/L (3.5-5.1); Protein, Total 7.2 g/dL (6.0-8.3); Sodium 132 mmol/L (136-145)
[2022-07-13] MEDS: Aspirin Chewable 81 MG TAB PO SCH (08:39)
[2022-07-13] MEDS: Saccharomyces boulardii 250 MG CAP PO SCH (08:40)
[2022-07-13] MEDS ORDERED: Lisinopril 20 MG TAB PO SCH (09:00)
[2022-07-13] MEDS ORDERED: NIFEdipine XL 60 MG TAB PO SCH (09:00)
[2022-07-13 16:30] VITALS: BP 147/80; TEMP 98.5
== END 2022-07-13 18:29 | disposition home or self-care (01) | DRG 391 ==
LOC: T4-A 07-06 14:17 → INTOOBSV 07-06 14:17 → OBSVTOIN 07-07 17:06
PROVIDERS: ADMIT Family Medicine; ATTEND Family Medicine
DX: A08.4 Viral intestinal infection, unspecified (principal); J18.9 Pneumonia, unspecified organism; I10 Essential (primary) hypertension; M48.02 Spinal stenosis, cervical region; F41.9 Anxiety disorder, unspecified; C50.919 Malignant neoplasm of unspecified site of unspecified female breast; K59.09 Other constipation; Z28.21 Immunization not carried out because of patient refusal; Z87.01 Personal history of pneumonia (recurrent); Z79.899 Other long term (current) drug therapy; Z79.82 Long term (current) use of aspirin; Z90.49 Acquired absence of other specified parts of digestive tract; Z87.891 Personal history of nicotine dependence; Z82.49 Family history of ischemic heart disease and other diseases of the circulatory system; Z80.7 Family history of other malignant neoplasms of lymphoid, hematopoietic and related tissues
CPT/HCPCS: 36415; 71046; 74018; 76700; 80048; 80053; 83690; 85025; 96372; 96374; G0378; J0780; J1650; J2405; J2550; J7120

== ENCOUNTER 2022-07-23 18:27 | Emergency (ER) | payer BC ==
[2022-07-23] MEDS ORDERED: traMADol HCl 50 MG TAB ONE (21:50)
== END 2022-07-23 21:49 | disposition home or self-care (01) ==
LOC: ERS 18:27
DX: S96.912A Strain of unspecified muscle and tendon at ankle and foot level, left foot, initial encounter (principal); E78.00 Pure hypercholesterolemia, unspecified; I10 Essential (primary) hypertension; F17.210 Nicotine dependence, cigarettes, uncomplicated; W18.39XA Other fall on same level, initial encounter
CPT/HCPCS: 72170

== ENCOUNTER 2022-07-30 11:02 | Outpatient (CLI) | payer BC ==
[2022-07-30 16:44] LABS: Mean Corpuscular HGB CONC 32.1 g/dL (32.0-36.0); Mean Corpuscular Hemoglobin 33.3 pg (27.0-31.0); Mean Platelet Volume 6.4 fL (7.4-10.4); Platelet Count 394 10x3/uL (130-400); RBC Distribution Width 13.6 % (11.5-14.5); Red Blood Cell (RBC) Count 3.92 mill/uL (4.20-5.40); White Blood Cell (WBC) Count 10.6 10x3/uL (4.8-10.8)
[2022-07-30 17:10] LABS: PTT 31.6 sec (22.9-36.1); Prothrombin Time 13.3 sec (12.0-14.7)
== END 2022-07-30 11:03 | disposition home or self-care (01) ==
LOC: LABBT 11:02
PROVIDERS: ATTEND Surgery
DX: Z01.812 Encounter for preprocedural laboratory examination (principal); M50.00 Cervical disc disorder with myelopathy, unspecified cervical region; M47.12 Other spondylosis with myelopathy, cervical region; M48.02 Spinal stenosis, cervical region
CPT/HCPCS: 80048; 85027; 85610; 85730; 86850; 86900; 86901

== ENCOUNTER 2022-07-30 11:45 | Inpatient (IN) | payer BC ==
[2022-08-02 10:56] VITALS: BMI 25.4
[2022-08-03] MEDS ORDERED: Vancomycin 1 GM VIAL ONE (07:06)
[2022-08-03] MEDS ORDERED: Thrombin 5000 UNITS/5 ML VIAL ONE (07:06)
[2022-08-03] MEDS ORDERED: Bacitracin Zinc Ointment 30 gm TUBE ONE (07:06)
[2022-08-03] MEDS ORDERED: CEFAZOLIN 2 GM VIAL ONE (07:25)
[2022-08-03] MEDS ORDERED: Sodium Chloride 0.9% 100 ML ONE (07:25)
[2022-08-03] MEDS ORDERED: fentaNYL PF 100 MCG/2 ML SYRINGE ONE ×3 (07:28→10:54)
[2022-08-03] MEDS ORDERED: Midazolam HCl 2 mg/2 ml Vial ONE (07:29)
[2022-08-03] MEDS ORDERED: Rocuronium Bromide 10 MG/ML (10ML VIAL) ONE (07:32)
[2022-08-03] MEDS ORDERED: PHENYLEPHRINE-NS 100 MCG/ML 10 ML SYRINGE ONE (07:32)
[2022-08-03] MEDS ORDERED: Dexamethasone 20 MG/5 ML VIAL ONE (07:32)
[2022-08-03] MEDS ORDERED: Metoprolol Tartrate 5 MG/5 ML VIAL ONE (07:32)
[2022-08-03] MEDS ORDERED: Ketorolac Tromethamine 30 MG/ML VIAL ONE (07:32)
[2022-08-03] MEDS ORDERED: PROPOFOL 200 MG/20 ML VIAL ONE (07:32)
[2022-08-03] MEDS ORDERED: Ondansetron PF 4 MG/2 ML Vial ONE (07:32)
[2022-08-03] MEDS ORDERED: Phenylephrine 10 MG/ML VIAL ONE (07:44)
[2022-08-03 07:51] LABS: SARS-CoV-2 NAA Rapid Test Not Detected (NotDetected)
[2022-08-03] MEDS ORDERED: Promethazine HCl 25 MG/ML VIAL IM PRN ×2 (09:04→11:59)
[2022-08-03] MEDS ORDERED: HYDROmorphone 2 MG/ML VIAL SLOW IVP PRN (09:04)
[2022-08-03] MEDS ORDERED: SUGAMMADEX SODIUM 200 MG/2 ML VIAL ONE (09:44)
[2022-08-03] MEDS ORDERED: Rocuronium Bromide 50 MG/5 ML VIAL ONE (10:52)
[2022-08-03] MEDS ORDERED: diphenhydrAMINE 50 MG/ML VIAL IM PRN (11:59)
[2022-08-03] MEDS ORDERED: FENTANYL 500 MCG/10 ML VIAL 2,000 MCG in Sodium Chloride 0.9% 60 ML IV PRN (11:59)
[2022-08-03] MEDS ORDERED: diphenhydrAMINE 50 MG/ML VIAL IVP PRN (11:59)
[2022-08-03] MEDS ORDERED: Naloxone HCl 0.4 mg/ml Vial IV PRN (11:59)
[2022-08-03] MEDS ORDERED: Communication Order-Pharmacy FS SCH (12:00)
[2022-08-03] MEDS ORDERED: HYDROmorphone 2 MG/ML VIAL ONE (12:46)
[2022-08-03] MEDS ORDERED: Cepastat Lozenges 1 LOZ PO PRN (12:51)
[2022-08-03] MEDS ORDERED: Chloraseptic Spray 180 ml Bottle PO PRN (12:51)
[2022-08-03] MEDS ORDERED: hydrALAZINE 20 MG/ML VIAL SLOW IVP PRN (12:51)
[2022-08-03] MEDS ORDERED: cloNIDine 0.1 MG TAB PO PRN (12:54)
[2022-08-03] MEDS ORDERED: hydrOXYzine 25 MG TAB PO PRN (12:54)
[2022-08-03] MEDS ORDERED: Fioricet 325/50/40 mg Tablet PO PRN (13:25)
[2022-08-03] MEDS ORDERED: Ondansetron ODT 4 MG TAB PO PRN (13:28)
[2022-08-03] MEDS ORDERED: Promethazine HCl 25 MG/ML VIAL ONE (13:33)
[2022-08-03] MEDS: Atorvastatin Calcium 20 MG TAB PO SCH (21:39)
[2022-08-03] MEDS: Diazepam 5 MG TAB PO PRN (21:39)
[2022-08-03] MEDS: Zolpidem Tartrate 5 MG TAB PO PRN (21:39)
[2022-08-03] MEDS: CEFAZOLIN 2 GM in Sodium Chloride 0.9% 100 ML IVPB SCH (21:39)
[2022-08-03] MEDS: diphenhydrAMINE 25 MG CAP PO PRN (21:39)
[2022-08-04] MEDS: CEFAZOLIN 2 GM in Sodium Chloride 0.9% 100 ML IVPB SCH ×3 (05:01→20:31)
[2022-08-04 06:54] LABS: #Basophils 0.1 thou/uL (0.0-0.2); #Lymphocytes 4.2 thou/uL (1.20-3.40); #Monocytes 1.2 thou/uL (0.11-0.59); #Neutrophils 11.5 thou/uL (1.40-6.50); %Basophils 0.3 % (0.0-1.0); %Eosinophils 0.2 % (0.0-10.0); %Lymphocytes 24.8 % (21.0-51.0); %Monocytes 6.9 % (0.0-10.0); %Neutrophils 67.8 % (42.0-75.0); Hemoglobin 10.5 g/dL (12.0-16.0); Mean Corpuscular HGB CONC 33.1 g/dL (32.0-36.0); Mean Corpuscular Hemoglobin 33.7 pg (27.0-31.0); Mean Platelet Volume 6.5 fL (7.4-10.4); Platelet Count 416 10x3/uL (130-400); RBC Distribution Width 12.8 % (11.5-14.5); Red Blood Cell (RBC) Count 3.13 mill/uL (4.20-5.40)
[2022-08-04 07:18] LABS: Anion Gap 14 mmol/L (10-20); BUN (Urea Nitrogen) 5 mg/dL (9.8-20.1); Calc. Creatinine Clearance 86 mL/min (70-130); Calcium 8.6 mg/dL (7.8-10.44); Carbon Dioxide 24 mmol/L (22-29); Chloride 99 mmol/L (98-107); Estimated GFR 100; Glucose 88 mg/dL (70-105); Potassium 4.3 mmol/L (3.5-5.1); Sodium 133 mmol/L (136-145)
[2022-08-04] MEDS: Sodium Chloride 0.9% 1,000 ML IV SCH ×2 (07:43→12:18)
[2022-08-04] MEDS: Diazepam 5 MG TAB PO PRN ×2 (08:15→13:34)
[2022-08-04] MEDS: Ketorolac Tromethamine 30 MG/ML VIAL IVP SCH ×3 (08:15→20:46)
[2022-08-04] MEDS: HYDROmorphone/PF 10 MG in Sodium Chloride 0.9% 99 ML IVPB PRN ×2 (09:19→20:26)
[2022-08-04] MEDS: NIFEdipine XL 30 MG TAB PO SCH (09:20)
[2022-08-04] MEDS: predniSONE 5 MG TAB PO SCH (09:20)
[2022-08-04] MEDS: Ondansetron PF 4 MG/2 ML Vial IVP PRN ×2 (13:17→19:24)
[2022-08-04 13:36] LABS: CCP IgG Antibody 0.4 EliAU/mL (<7 Negative); Rheumatoid Factor IgA Antibody 6.3 IU/mL (<14 Negative); Rheumatoid Factor IgM Antibody 1.5 IU/mL (<3.5 Negative)
[2022-08-04] MEDS ORDERED: cloNIDine 0.1 MG TAB PO PRN (19:22)
[2022-08-04] MEDS: Zolpidem Tartrate 5 MG TAB PO PRN (20:32)
[2022-08-04] MEDS: Atorvastatin Calcium 20 MG TAB PO SCH (20:32)
[2022-08-04] MEDS: diphenhydrAMINE 25 MG CAP PO PRN (20:39)
[2022-08-05] MEDS: Ketorolac Tromethamine 30 MG/ML VIAL IVP SCH (02:22)
[2022-08-05] MEDS: Diazepam 5 MG TAB PO PRN ×4 (02:23→20:46)
[2022-08-05] MEDS: Sodium Chloride 0.9% 1,000 ML IV SCH ×3 (03:19→19:23)
[2022-08-05] MEDS: CEFAZOLIN 2 GM in Sodium Chloride 0.9% 100 ML IVPB SCH ×3 (04:55→20:46)
[2022-08-05 06:10] LABS: Anion Gap 9 mmol/L (10-20); BUN (Urea Nitrogen) 4 mg/dL (9.8-20.1); Calc. Creatinine Clearance 98 mL/min (70-130); Calcium 8.2 mg/dL (7.8-10.44); Carbon Dioxide 27 mmol/L (22-29); Chloride 97 mmol/L (98-107); Estimated GFR 103; Glucose 84 mg/dL (70-105); Potassium 3.2 mmol/L (3.5-5.1); Sodium 130 mmol/L (136-145)
[2022-08-05] MEDS: NIFEdipine XL 30 MG TAB PO SCH (08:55)
[2022-08-05] MEDS: predniSONE 5 MG TAB PO SCH (08:57)
[2022-08-05] MEDS ORDERED: Polyethylene Glycol 3350 17 GM Packet PO PRN (10:47)
[2022-08-05] MEDS ORDERED: Bisacodyl 5 MG TAB PO PRN (10:47)
[2022-08-05] MEDS: oxyCODONE 5 MG TAB PO PRN ×3 (12:22→23:10)
[2022-08-05] MEDS: Fentanyl 100 MCG/2 ML VIAL SLOW IVP PRN ×4 (14:36→23:08)
[2022-08-05] MEDS: Atorvastatin Calcium 20 MG TAB PO SCH (20:46)
[2022-08-05] MEDS: Docusate 100 MG CAP PO SCH (23:09)
[2022-08-05] MEDS: Acetaminophen 325 MG TAB PO PRN (23:09)
[2022-08-06] MEDS: CEFAZOLIN 2 GM in Sodium Chloride 0.9% 100 ML IVPB SCH ×3 (03:49→20:51)
[2022-08-06] MEDS: Fentanyl 100 MCG/2 ML VIAL SLOW IVP PRN ×2 (03:50→07:38)
[2022-08-06] MEDS: Diazepam 5 MG TAB PO PRN ×4 (03:51→22:46)
[2022-08-06] MEDS: oxyCODONE 5 MG TAB PO PRN ×3 (07:41→20:57)
[2022-08-06] MEDS: Sodium Chloride 0.9% 1,000 ML IV SCH (08:04)
[2022-08-06 08:23] LABS: Anion Gap 16 mmol/L (10-20); BUN (Urea Nitrogen) 4 mg/dL (9.8-20.1); Calc. Creatinine Clearance 105 mL/min (70-130); Calcium 8.8 mg/dL (7.8-10.44); Carbon Dioxide 25 mmol/L (22-29); Chloride 95 mmol/L (98-107); Estimated GFR 105; Glucose 86 mg/dL (70-105); Potassium 2.8 mmol/L (3.5-5.1); Sodium 133 mmol/L (136-145)
[2022-08-06] MEDS ORDERED: predniSONE 5 MG TAB PO SCH (08:45)
[2022-08-06] MEDS: Ketorolac Tromethamine 30 MG/ML VIAL IVP PRN ×3 (08:53→22:45)
[2022-08-06] MEDS: Docusate 100 MG CAP PO SCH ×2 (08:54→20:51)
[2022-08-06] MEDS: NIFEdipine XL 30 MG TAB PO SCH (08:54)
[2022-08-06] MEDS: predniSONE 5 MG TAB PO SCH ×2 (09:22→16:11)
[2022-08-06] MEDS ORDERED: Metoprolol Tartrate 25 MG TAB PO SCH (11:45)
[2022-08-06] MEDS: Potassium Chloride 20 MEQ TAB PO SCH ×2 (12:34→16:11)
[2022-08-06] MEDS: NS 0.9% w/ 20 MEQ KCL 1,000 ML/1,000 ML BAG IV SCH (12:36)
[2022-08-06] MEDS: Atorvastatin Calcium 20 MG TAB PO SCH (20:51)
[2022-08-06] MEDS: Metoprolol Tartrate 25 MG TAB PO SCH (20:59)
[2022-08-07] MEDS: NS 0.9% w/ 20 MEQ KCL 1,000 ML/1,000 ML BAG IV SCH ×2 (01:30→08:00)
[2022-08-07] MEDS: CEFAZOLIN 2 GM in Sodium Chloride 0.9% 100 ML IVPB SCH (04:50)
[2022-08-07] MEDS: oxyCODONE 5 MG TAB PO PRN (04:51)
[2022-08-07] MEDS: Fentanyl 100 MCG/2 ML VIAL SLOW IVP PRN (05:52)
[2022-08-07 08:14] LABS: Anion Gap 13 mmol/L (10-20); BUN (Urea Nitrogen) 4 mg/dL (9.8-20.1); Calc. Creatinine Clearance 105 mL/min (70-130); Calcium 8.5 mg/dL (7.8-10.44); Carbon Dioxide 25 mmol/L (22-29); Chloride 102 mmol/L (98-107); Estimated GFR 105; Glucose 83 mg/dL (70-105); Magnesium 1.3 mg/dL (1.6-2.6); Potassium 3.8 mmol/L (3.5-5.1); Sodium 136 mmol/L (136-145)
[2022-08-07] MEDS: Metoprolol Tartrate 25 MG TAB PO SCH ×2 (09:15→21:07)
[2022-08-07] MEDS ORDERED: Magnesium 2 GM/50 ML(in water) 2 GM in Premix Bag 1 BAG IVPB SCH (09:15)
[2022-08-07] MEDS: NIFEdipine XL 30 MG TAB PO SCH (09:16)
[2022-08-07] MEDS: oxyCODONE ER 10 MG TAB PO SCH ×2 (09:16→21:05)
[2022-08-07] MEDS: predniSONE 5 MG TAB PO SCH ×2 (09:16→16:22)
[2022-08-07] MEDS: Docusate 100 MG CAP PO SCH ×2 (09:17→21:04)
[2022-08-07] MEDS: Diazepam 5 MG TAB PO PRN ×2 (10:34→16:23)
[2022-08-07] MEDS: Ketorolac Tromethamine 30 MG/ML VIAL IVP PRN (12:05)
[2022-08-07] MEDS: Acetaminophen 325 MG TAB PO PRN (16:23)
[2022-08-07] MEDS: Ibuprofen 800 MG TAB PO PRN (21:05)
[2022-08-07] MEDS: Atorvastatin Calcium 20 MG TAB PO SCH (21:07)
[2022-08-08] MEDS: Diazepam 5 MG TAB PO PRN ×3 (00:50→12:09)
[2022-08-08] MEDS: Acetaminophen 325 MG TAB PO PRN ×2 (00:50→14:21)
[2022-08-08 00:54] VITALS: TEMP 97.7
[2022-08-08] MEDS: Ibuprofen 800 MG TAB PO PRN ×2 (06:05→14:21)
[2022-08-08 07:52] LABS: Anion Gap 14 mmol/L (10-20); BUN (Urea Nitrogen) 5 mg/dL (9.8-20.1); Calc. Creatinine Clearance 105 mL/min (70-130); Calcium 8.7 mg/dL (7.8-10.44); Carbon Dioxide 23 mmol/L (22-29); Chloride 101 mmol/L (98-107); Estimated GFR 105; Glucose 82 mg/dL (70-105); Magnesium 1.6 mg/dL (1.6-2.6); Potassium 3.8 mmol/L (3.5-5.1); Sodium 134 mmol/L (136-145)
[2022-08-08] MEDS: oxyCODONE ER 10 MG TAB PO SCH (09:23)
[2022-08-08] MEDS: predniSONE 5 MG TAB PO SCH (09:24)
[2022-08-08] MEDS: Metoprolol Tartrate 25 MG TAB PO SCH ×2 (09:24→09:27)
[2022-08-08] MEDS: NIFEdipine XL 30 MG TAB PO SCH (09:24)
[2022-08-08] MEDS: Docusate 100 MG CAP PO SCH (09:24)
[2022-08-08 11:37] VITALS: BP 117/76
== END 2022-08-08 15:20 | disposition home or self-care (01) | DRG 454 ==
LOC: SURG A 08-03 06:15 → SJJU 08-03 17:51
PROVIDERS: ADMIT Surgery; ATTEND Surgery
PROC: 0RG20A0 Fusion of 2 or more Cervical Vertebral Joints with Interbody Fusion Device, Anterior Approach, Anterior Column, Open Approach (ICD-10-PCS; principal; 2022-08-03)
PROC: 0RG2071 Fusion of 2 or more Cervical Vertebral Joints with Autologous Tissue Substitute, Posterior Approach, Posterior Column, Open Approach (ICD-10-PCS; 2022-08-03)
PROC: 00NW0ZZ Release Cervical Spinal Cord, Open Approach (ICD-10-PCS; 2022-08-03)
PROC: 01N10ZZ Release Cervical Nerve, Open Approach (ICD-10-PCS; 2022-08-03)
PROC: 0RB30ZZ Excision of Cervical Vertebral Disc, Open Approach (ICD-10-PCS; 2022-08-03)
DX: M48.02 Spinal stenosis, cervical region (principal); E87.1 Hypo-osmolality and hyponatremia; G99.2 Myelopathy in diseases classified elsewhere; Z20.822 Contact with and (suspected) exposure to COVID-19; F17.210 Nicotine dependence, cigarettes, uncomplicated; M54.12 Radiculopathy, cervical region; E87.6 Hypokalemia; I10 Essential (primary) hypertension; E78.5 Hyperlipidemia, unspecified; E87.8 Other disorders of electrolyte and fluid balance, not elsewhere classified; K52.9 Noninfective gastroenteritis and colitis, unspecified; M62.838 Other muscle spasm; R00.0 Tachycardia, unspecified; Z79.82 Long term (current) use of aspirin; Z85.3 Personal history of malignant neoplasm of breast; Z90.49 Acquired absence of other specified parts of digestive tract
CPT/HCPCS: 36415; 80048; 83520; 83735; 84436; 84443; 85025; 86200; 86850; 86900; 86901; 93970; C1713; C1768; C1776; J0360; J1100; J1170; J1642; J1885; J2250; J2370; J2405; J2550; J2704; J3010; J3370; J3475; J3480; J3490; J7512; U0002

== ENCOUNTER 2022-10-22 02:12 | Observation (INO) | payer BC ==
[2022-10-22] MEDS ORDERED: Ondansetron PF 4 MG/2 ML Vial IVP PRN (04:42)
[2022-10-22] MEDS: HYDROcodone/Acetaminophen 10/325 mg Tablet PO PRN ×3 (05:00→13:03)
[2022-10-22] MEDS ORDERED: Diazepam 5 MG TAB PO PRN (05:14)
[2022-10-22 05:53] VITALS: BMI 22.6
[2022-10-22 06:11] LABS: #Basophils 0.1 thou/uL (0.0-0.2); #Eosinphils 0.2 thou/uL (0.0-0.7); #Monocytes 0.4 thou/uL (0.11-0.59); #Neutrophils 3.4 thou/uL (1.40-6.50); %Basophils 0.7 % (0.0-1.0); %Lymphocytes 44.7 % (21.0-51.0); %Monocytes 5.8 % (0.0-10.0); %Neutrophils 46.3 % (42.0-75.0); Hemoglobin 10.2 g/dL (12.0-16.0); Mean Corpuscular Hemoglobin 27.5 pg (27.0-31.0); Mean Platelet Volume 9.6 fL (7.4-10.4); Platelet Count 256 10x3/uL (130-400); RBC Distribution Width 14.7 % (11.5-14.5); Red Blood Cell (RBC) Count 3.71 mill/uL (4.20-5.40); White Blood Cell (WBC) Count 7.4 10x3/uL (4.8-10.8)
[2022-10-22 06:34] LABS: Anion Gap 13 mmol/L (10-20); BUN (Urea Nitrogen) 7 mg/dL (9.8-20.1); Calc. Creatinine Clearance 79 mL/min (70-130); Calcium 8.9 mg/dL (7.8-10.44); Carbon Dioxide 25 mmol/L (22-29); Chloride 97 mmol/L (98-107); Estimated GFR 101; Glucose 78 mg/dL (70-105); Magnesium 1.8 mg/dL (1.6-2.6); Potassium 3.4 mmol/L (3.5-5.1); Sodium 132 mmol/L (136-145)
[2022-10-22] MEDS ORDERED: cloNIDine 0.1 MG TAB PO PRN (07:46)
[2022-10-22] MEDS ORDERED: Potassium Chloride 20 MEQ TAB PO SCH (08:00)
[2022-10-22] MEDS ORDERED: Amlodipine 5 MG TAB PO SCH (09:00)
[2022-10-22 12:01] VITALS: TEMP 98.6
[2022-10-22] MEDS ORDERED: Baclofen 10 MG TAB PO SCH (15:00)
[2022-10-22 15:20] VITALS: BP 125/72
[2022-10-22] MEDS ORDERED: Atorvastatin Calcium 20 MG TAB PO SCH (21:00)
== END 2022-10-22 16:12 | disposition home or self-care (01) ==
LOC: 2SW 02:27
PROVIDERS: ADMIT Internal Medicine; ATTEND Internal Medicine
DX: M54.2 Cervicalgia (principal); M62.838 Other muscle spasm; E87.6 Hypokalemia; E87.1 Hypo-osmolality and hyponatremia; I10 Essential (primary) hypertension; E78.5 Hyperlipidemia, unspecified; F17.210 Nicotine dependence, cigarettes, uncomplicated; M43.12 Spondylolisthesis, cervical region; Z85.3 Personal history of malignant neoplasm of breast; Z79.899 Other long term (current) drug therapy; Z98.1 Arthrodesis status
CPT/HCPCS: 36415; 72125; 80048; 83735; 85025; 86140; 96374; G0378; J2405

== ENCOUNTER 2023-01-17 16:51 | Inpatient (IN) | payer BC ==
[2023-01-17 19:46] VITALS: BMI 22.8
[2023-01-17] MEDS ORDERED: Ondansetron ODT 4 MG TAB PO PRN (20:44)
[2023-01-17] MEDS ORDERED: Acetaminophen 325 MG TAB PO PRN (20:44)
[2023-01-17] MEDS ORDERED: Ondansetron PF 4 MG/2 ML Vial IVP PRN (20:44)
[2023-01-17] MEDS ORDERED: Senokot S 8.6-50 MG TAB PO PRN (20:44)
[2023-01-17] MEDS ORDERED: Bisacodyl 5 MG TAB PO PRN (20:44)
[2023-01-17] MEDS ORDERED: Nitroglycerin 0.4 MG TAB (25 Tab Bottle) SL PRN (20:45)
[2023-01-17] MEDS ORDERED: Methocarbamol 500 MG TAB PO PRN (21:25)
[2023-01-17] MEDS ORDERED: Apixaban 5 MG TAB PO SCH (21:30)
[2023-01-17 21:40] LABS: Troponin I Less than 0.010 ng/mL (< 0.028)
[2023-01-17] MEDS: Acetaminophen/Codeine 30-300mg Tablet PO SCH (21:47)
[2023-01-17] MEDS: Nitroglycerin 2% Ointment 1 INCH/1 GM Packet TOP SCH (21:48)
[2023-01-17] MEDS ORDERED: Acetaminophen/Codeine 30-300mg Tablet PO SCH (23:59)
[2023-01-18] MEDS: HYDROcodone/Acetaminophen 10/325 mg Tablet PO PRN ×2 (01:45→19:41)
[2023-01-18 04:17] LABS: #Basophils 0.1 thou/uL (0.0-0.2); #Eosinphils 0.1 thou/uL (0.0-0.7); #Monocytes 0.8 thou/uL (0.11-0.59); #Neutrophils 4.6 thou/uL (1.40-6.50); %Basophils 0.5 % (0.0-1.0); %Eosinophils 0.9 % (0.0-10.0); %Lymphocytes 56.4 % (21.0-51.0); %Monocytes 6.5 % (0.0-10.0); %Neutrophils 35.4 % (42.0-75.0); Hematocrit 34.7 % (36.0-47.0); Hemoglobin 11.5 g/dL (12.0-16.0); Mean Corpuscular HGB CONC 33.1 g/dL (32.0-36.0); Mean Corpuscular Hemoglobin 28.5 pg (27.0-31.0); Mean Corpuscular Volume 85.9 fl (78.0-98.0); Mean Platelet Volume 8.8 fL (7.4-10.4); Platelet Count 416 10x3/uL (130-400); RBC Distribution Width 14.9 % (11.5-14.5); Red Blood Cell (RBC) Count 4.04 mill/uL (4.20-5.40); White Blood Cell (WBC) Count 12.9 10x3/uL (4.8-10.8)
[2023-01-18 04:24] LABS: Hemoglobin A1c 4.7 % (4.0-6.0)
[2023-01-18] MEDS: Acetaminophen/Codeine 30-300mg Tablet PO SCH ×4 (04:32→21:47)
[2023-01-18 04:41] LABS: Anion Gap 15 mmol/L (10-20); BUN (Urea Nitrogen) 16 mg/dL (9.8-20.1); Calc. Creatinine Clearance 74 mL/min (70-130); Calcium 9.5 mg/dL (7.8-10.44); Carbon Dioxide 23 mmol/L (22-29); Cardiac Risk 2.8 (Less than 4.5); Chloride 99 mmol/L (98-107); Cholesterol 213 mg/dl (< 200 Desired); Estimated GFR 99; Glucose 85 mg/dL (70-105); HDL Cholesterol 75 mg/dL (>60 Neg Risk); LDL Cholesterol, Calculated 99 mg/dL; Potassium 3.6 mmol/L (3.5-5.1); Sodium 133 mmol/L (136-145); Triglycerides 196 mg/dL (Less than 150)
[2023-01-18] MEDS: Nitroglycerin 2% Ointment 1 INCH/1 GM Packet TOP SCH ×3 (06:08→21:49)
[2023-01-18] MEDS ORDERED: Aspirin Chewable 81 MG TAB PO SCH (09:00)
[2023-01-18] MEDS: Apixaban 5 MG TAB PO SCH ×2 (09:37→19:41)
[2023-01-18] MEDS: Pregabalin 75 MG CAP PO SCH ×2 (09:37→21:47)
[2023-01-18] MEDS: Amlodipine 5 MG TAB PO SCH (12:47)
[2023-01-18] MEDS ORDERED: Ketorolac Tromethamine 30 MG/ML VIAL IVP SCH (17:00)
[2023-01-18] MEDS: Atorvastatin Calcium 20 MG TAB PO SCH (19:41)
[2023-01-18] MEDS ORDERED: cloNIDine 0.1 MG TAB PO SCH (23:30)
[2023-01-19] MEDS: Ibuprofen 800 MG TAB PO SCH ×5 (00:18→18:37)
[2023-01-19] MEDS: HYDROcodone/Acetaminophen 10/325 mg Tablet PO PRN ×4 (03:14→22:41)
[2023-01-19] MEDS: Acetaminophen/Codeine 30-300mg Tablet PO SCH ×5 (05:36→22:08)
[2023-01-19 05:42] LABS: #Basophils 0.1 thou/uL (0.0-0.2); #Eosinphils 0.3 thou/uL (0.0-0.7); #Monocytes 0.7 thou/uL (0.11-0.59); #Neutrophils 4.6 thou/uL (1.40-6.50); %Basophils 0.7 % (0.0-1.0); %Eosinophils 2.6 % (0.0-10.0); %Lymphocytes 46.9 % (21.0-51.0); %Monocytes 6.5 % (0.0-10.0); %Neutrophils 42.9 % (42.0-75.0); Hematocrit 32.8 % (36.0-47.0); Hemoglobin 10.6 g/dL (12.0-16.0); Mean Corpuscular HGB CONC 32.3 g/dL (32.0-36.0); Mean Corpuscular Hemoglobin 28.5 pg (27.0-31.0); Mean Corpuscular Volume 88.2 fl (78.0-98.0); Mean Platelet Volume 8.5 fL (7.4-10.4); Platelet Count 398 10x3/uL (130-400); RBC Distribution Width 14.5 % (11.5-14.5); Red Blood Cell (RBC) Count 3.72 mill/uL (4.20-5.40); White Blood Cell (WBC) Count 10.7 10x3/uL (4.8-10.8)
[2023-01-19] MEDS: Nitroglycerin 2% Ointment 1 INCH/1 GM Packet TOP SCH ×3 (05:57→22:43)
[2023-01-19 06:04] LABS: Anion Gap 12 mmol/L (10-20); BUN (Urea Nitrogen) 23 mg/dL (9.8-20.1); Calc. Creatinine Clearance 64 mL/min (70-130); Calcium 8.7 mg/dL (7.8-10.44); Carbon Dioxide 22 mmol/L (22-29); Chloride 97 mmol/L (98-107); Estimated GFR 83; Glucose 82 mg/dL (70-105); Potassium 3.9 mmol/L (3.5-5.1); Sodium 127 mmol/L (136-145)
[2023-01-19 06:10] LABS: Troponin I Less than 0.010 ng/mL (< 0.028)
[2023-01-19] MEDS: Apixaban 5 MG TAB PO SCH ×2 (10:27→22:09)
[2023-01-19] MEDS: Amlodipine 5 MG TAB PO SCH (10:28)
[2023-01-19] MEDS: Pregabalin 75 MG CAP PO SCH ×2 (10:29→22:09)
[2023-01-19] MEDS: Sodium Chloride 0.9% 1,000 ML IV SCH ×2 (10:30→22:07)
[2023-01-19] MEDS ORDERED: Acetaminophen/Codeine 30-300mg Tablet PO SCH (20:00)
[2023-01-19] MEDS: Atorvastatin Calcium 20 MG TAB PO SCH (22:10)
[2023-01-20] MEDS: Acetaminophen/Codeine 30-300mg Tablet PO SCH ×3 (01:58→12:39)
[2023-01-20 04:17] LABS: #Basophils 0.1 thou/uL (0.0-0.2); #Eosinphils 0.2 thou/uL (0.0-0.7); #Monocytes 0.6 thou/uL (0.11-0.59); #Neutrophils 4.4 thou/uL (1.40-6.50); %Basophils 0.8 % (0.0-1.0); %Eosinophils 2.1 % (0.0-10.0); %Lymphocytes 49.5 % (21.0-51.0); %Monocytes 5.6 % (0.0-10.0); %Neutrophils 41.7 % (42.0-75.0); Hematocrit 31.5 % (36.0-47.0); Hemoglobin 10.2 g/dL (12.0-16.0); Mean Corpuscular HGB CONC 32.4 g/dL (32.0-36.0); Mean Corpuscular Hemoglobin 28.4 pg (27.0-31.0); Mean Corpuscular Volume 87.7 fl (78.0-98.0); Mean Platelet Volume 8.4 fL (7.4-10.4); Platelet Count 400 10x3/uL (130-400); RBC Distribution Width 14.5 % (11.5-14.5); Red Blood Cell (RBC) Count 3.59 mill/uL (4.20-5.40); White Blood Cell (WBC) Count 10.6 10x3/uL (4.8-10.8)
[2023-01-20 04:38] LABS: Anion Gap 11 mmol/L (10-20); BUN (Urea Nitrogen) 13 mg/dL (9.8-20.1); Calc. Creatinine Clearance 84 mL/min (70-130); Calcium 8.4 mg/dL (7.8-10.44); Carbon Dioxide 24 mmol/L (22-29); Chloride 103 mmol/L (98-107); Estimated GFR 102; Glucose 80 mg/dL (70-105); Magnesium 1.9 mg/dL (1.6-2.6); Potassium 3.7 mmol/L (3.5-5.1); Sodium 134 mmol/L (136-145)
[2023-01-20] MEDS: HYDROcodone/Acetaminophen 10/325 mg Tablet PO PRN ×2 (04:55→10:14)
[2023-01-20] MEDS: Ibuprofen 800 MG TAB PO SCH ×2 (06:00→12:38)
[2023-01-20] MEDS: Nitroglycerin 2% Ointment 1 INCH/1 GM Packet TOP SCH ×2 (06:00→14:14)
[2023-01-20] MEDS ORDERED: Amlodipine 10 MG TAB PO SCH (09:00)
[2023-01-20] MEDS: Pregabalin 75 MG CAP PO SCH (10:13)
[2023-01-20] MEDS: Apixaban 5 MG TAB PO SCH (10:14)
[2023-01-20] MEDS: Sodium Chloride 0.9% 1,000 ML IV SCH ×2 (10:15→14:14)
[2023-01-20 12:37] VITALS: BP 147/79; TEMP 97.7
== END 2023-01-20 14:35 | disposition home or self-care (01) | DRG 194 ==
LOC: 2NO 16:51 → OBSVTOIN 01-20 08:27
PROVIDERS: ADMIT Family Medicine; ATTEND Internal Medicine Geriatric Medicine
DX: R09.1 Pleurisy (principal); E87.1 Hypo-osmolality and hyponatremia; G89.29 Other chronic pain; M54.2 Cervicalgia; M54.9 Dorsalgia, unspecified; I10 Essential (primary) hypertension; E78.5 Hyperlipidemia, unspecified; F41.9 Anxiety disorder, unspecified; I25.10 Atherosclerotic heart disease of native coronary artery without angina pectoris; E87.8 Other disorders of electrolyte and fluid balance, not elsewhere classified; K74.60 Unspecified cirrhosis of liver; Z79.899 Other long term (current) drug therapy; Z86.711 Personal history of pulmonary embolism; Z90.49 Acquired absence of other specified parts of digestive tract; Z98.890 Other specified postprocedural states; Z79.82 Long term (current) use of aspirin
CPT/HCPCS: 36415; 78451; 80048; 80061; 83036; 83735; 83880; 84443; 84484; 85025; 94760; A9500; J1885; J7050; Q0162

== ENCOUNTER 2023-08-16 09:58 | Emergency (ER) | payer BC ==
[2023-08-16 10:45] LABS: #Monocytes 0.7 thou/uL (0.11-0.59); #Neutrophils 8.3 thou/uL (1.40-6.50); %Basophils 0.3 % (0.0-1.0); %Eosinophils 0.1 % (0.0-10.0); %Lymphocytes 22.7 % (21.0-51.0); %Monocytes 5.8 % (0.0-10.0); %Neutrophils 70.7 % (42.0-75.0); Hemoglobin 13.8 g/dL (12.0-16.0); Mean Corpuscular HGB CONC 32.9 g/dL (32.0-36.0); Mean Corpuscular Hemoglobin 28.2 pg (27.0-31.0); Mean Corpuscular Volume 85.9 fl (78.0-98.0); Mean Platelet Volume 9.2 fL (7.4-10.4); Platelet Count 248 10x3/uL (130-400); RBC Distribution Width 16.5 % (11.5-14.5); Red Blood Cell (RBC) Count 4.89 mill/uL (4.20-5.40); White Blood Cell (WBC) Count 11.8 10x3/uL (4.8-10.8)
[2023-08-16 11:24] LABS: ALT (SGPT) 16 U/L (8-55); AST (SGOT) 22 U/L (5-34); Albumin 4.3 g/dL (3.5-5.0); Alkaline Phosphatase 147 U/L (40-110); Anion Gap 19 mmol/L (10-20); BUN (Urea Nitrogen) 15 mg/dL (9.8-20.1); Bilirubin, Total 0.3 mg/dL (0.2-1.2); Calc. Creatinine Clearance 0 mL/min (70-130); Calcium 9.4 mg/dL (7.8-10.44); Carbon Dioxide 21 mmol/L (22-29); Chloride 96 mmol/L (98-107); Estimated GFR 97; Globulin 3.2 g/dL (2.4-3.5); Glucose 83 mg/dL (70-105); Lipase 4 U/L (8-78); Potassium 4.1 mmol/L (3.5-5.1); Protein, Total 7.5 g/dL (6.0-8.3); Sodium 132 mmol/L (136-145)
[2023-08-16] MEDS ORDERED: Morphine 4 MG/ML VIAL ONE (11:32)
[2023-08-16] MEDS ORDERED: Ondansetron PF 4 MG/2 ML Vial ONE (11:32)
[2023-08-16 11:50] LABS: Troponin I Less than 0.010 ng/mL (< 0.028)
[2023-08-16] MEDS ORDERED: fentaNYL 50 mcg/mL 1 mL Vial ONE ×2 (12:13→13:03)
[2023-08-16] MEDS ORDERED: Midazolam HCl 2 mg/2 ml Vial ONE (14:10)
== END 2023-08-16 15:22 | disposition home or self-care (01) ==
LOC: ERS 09:58
DX: M54.2 Cervicalgia (principal); R03.0 Elevated blood-pressure reading, without diagnosis of hypertension; E78.00 Pure hypercholesterolemia, unspecified; I10 Essential (primary) hypertension; F17.210 Nicotine dependence, cigarettes, uncomplicated; Z79.899 Other long term (current) drug therapy; Z79.01 Long term (current) use of anticoagulants
CPT/HCPCS: 36415; 71045; 72156; 80053; 83690; 84484; 85025; 93005; 96361; 96374; 96375; 96376; J2250; J2270; J2405; J3010

== ENCOUNTER 2023-11-27 18:04 | Inpatient (IN) | payer BC ==
[~2023-11-27 18:04] MED LIST changes: -Iopamidol-370 76% 500 ML 1 ML ONE; +Iopamidol-370 76% 500 ML MDV (1 ML CHARGE) ONE
[2023-11-27] MEDS ORDERED: HYDROcodone/Acetaminophen 10/325 mg Tablet ONE (20:04)
[2023-11-27] MEDS ORDERED: Nicotine 14 MG PATCH TD PRN (22:00)
[2023-11-27] MEDS ORDERED: Ipratropium/Albuterol 3 ML NEB NEB PRN (22:24)
[2023-11-27] MEDS ORDERED: Albuterol 200 PUFF (6.7GM INHALER) INH PRN (22:25)
[2023-11-27] MEDS ORDERED: Polyethylene Glycol 3350 17 GM Packet PO PRN (22:27)
[2023-11-28] MEDS ORDERED: Ondansetron PF 4 MG/2 ML Vial ONE ×2 (01:52→07:40)
[2023-11-28] MEDS ORDERED: HYDROcodone/Acetaminophen 5/325 mg Tablet ONE ×3 (01:57→12:17)
[2023-11-28] MEDS: Ondansetron PF 4 MG/2 ML Vial IVP PRN (02:06)
[2023-11-28] MEDS ORDERED: predniSONE 20 MG TAB ONE (07:40)
[2023-11-28] MEDS ORDERED: Amlodipine 5 MG TAB ONE ×2 (07:40→12:17)
[2023-11-28] MEDS ORDERED: Doxycycline 100 MG CAP ONE (07:40)
[2023-11-28] MEDS ORDERED: Famotidine 20 MG TAB ONE (07:41)
[2023-11-28] MEDS: Doxycycline 100 MG CAP PO SCH ×2 (08:07→08:13)
[2023-11-28] MEDS: Amlodipine 5 MG TAB PO SCH ×2 (08:07→12:32)
[2023-11-28] MEDS: HYDROcodone/Acetaminophen 5/325 mg Tablet PO PRN (08:08)
[2023-11-28] MEDS: Lidocaine 4% Patch TD SCH ×2 (08:08→21:00)
[2023-11-28] MEDS: Famotidine 20 MG TAB PO SCH (08:08)
[2023-11-28] MEDS: predniSONE 20 MG TAB PO SCH (08:08)
[2023-11-28] MEDS: Transdermal Patch Removal TOP SCH (08:09)
[2023-11-28] MEDS: Famotidine/PF 20 mg/2ml Vial SLOW IVP SCH (08:09)
[2023-11-28] MEDS: Mometasone 200 MCG/Formoterol 5 MCG 120 PUFF INHALER INH SCH (08:13)
[2023-11-28] MEDS: Baclofen 10 MG TAB PO PRN (08:28)
[2023-11-28 08:59] VITALS: BMI 24.5
[2023-11-28 10:30] LABS: #Basophils Less than 0.03 10x3/uL (0.0-0.2); #Eosinphils Less than 0.03 10x3/uL (0.0-0.7); %Basophils 0.3 % (0.0-1.0); %Lymphocytes 22.1 % (21.0-51.0); %Monocytes 5.2 % (0.0-10.0); Hematocrit 38.2 % (36.0-47.0); Hemoglobin 12.4 g/dL (12.0-16.0); Mean Corpuscular HGB CONC 32.5 g/dL (32.0-36.0); Mean Corpuscular Hemoglobin 29.9 pg (27.0-31.0); Mean Platelet Volume 9.5 fL (7.4-10.4); Platelet Count 266 10x3/uL (130-400); RBC Distribution Width 14.4 % (11.5-14.5); Red Blood Cell (RBC) Count 4.15 mill/uL (4.20-5.40)
[2023-11-28 10:40] LABS: Anion Gap 15 mmol/L (10-20); BUN (Urea Nitrogen) 6 mg/dL (9.8-20.1); Calc. Creatinine Clearance 100 mL/min (70-130); Calcium 8.7 mg/dL (7.8-10.44); Carbon Dioxide 26 mmol/L (23-31); Chloride 94 mmol/L (98-107); Estimated GFR 104; Glucose 104 mg/dL (80-115); Potassium 3.5 mmol/L (3.5-5.1); Sodium 131 mmol/L (136-145)
[2023-11-28] MEDS ORDERED: Ipratropium/Albuterol 3 ML NEB ONE (12:08)
[2023-11-28] MEDS: Ipratropium/Albuterol 3 ML NEB IPPB SCH (14:16)
[2023-11-28 19:38] LABS: Bacteria/HPF None Seen HPF (None Seen); Bilirubin Negative (Negative); Blood, Urine Negative (Negative); CAUTI Indications for Culture Pelvic or flank pain; Clarity Clear (Clear); Glucose, Urine (Dipstick) Normal (Negative); Ketone, Urine Negative (Negative); Leukocyte Negative Leu/uL (Negative); Nitrite Negative (Negative); Protein, Urine (Dipstick) 50 mg/dL (Neg-Trace); RBC/HPF 0-3 HPF (0-3); Specific Gravity, Urine 1.008 (1.002-1.036); Squamous Epithelial 0-3 HPF (0-3); Urobilinogen Normal mg/dL (Less than 2); WBC/HPF 0-3 HPF (0-3); pH, Urine 7.5 (5.0-9.0)
[2023-11-28 19:39] LABS: Urine Culture Reflex No No
[2023-11-28] MEDS: Atorvastatin Calcium 20 MG TAB PO SCH (21:00)
[2023-11-28] MEDS: Ondansetron ODT 4 MG TAB PO PRN (21:01)
[2023-11-29] MEDS: Acetaminophen 325 MG TAB PO PRN (05:33)
[2023-11-29 12:42] VITALS: BP 150/76; TEMP 98.2
== END 2023-11-29 17:45 | disposition home or self-care (01) | DRG 206 ==
LOC: ERS 18:04 → ERHOLD 21:02 → 2SW 11-28 14:07 → OBSVTOIN 11-29 08:13
PROVIDERS: ADMIT Student in an Organized Health Care Education/Training Program; ATTEND Family Medicine
DX: R09.02 Hypoxemia (principal); I50.32 Chronic diastolic (congestive) heart failure; M54.2 Cervicalgia; G89.29 Other chronic pain; I25.10 Atherosclerotic heart disease of native coronary artery without angina pectoris; I11.0 Hypertensive heart disease with heart failure; F17.210 Nicotine dependence, cigarettes, uncomplicated; E78.5 Hyperlipidemia, unspecified; Z79.899 Other long term (current) drug therapy; Z90.49 Acquired absence of other specified parts of digestive tract; Z85.3 Personal history of malignant neoplasm of breast
CPT/HCPCS: 36415; 71275; 80048; 81001; 85025; 85379; 87633; 96374; 96376; G0378; J2405; J7512; J7620; Q0162; Q9967

== ENCOUNTER 2024-07-24 11:12 | Outpatient (CLI) | payer BC ==
[2024-07-24] MEDS ORDERED: Iopamidol 370 76% 100 ML VIAL ONE (11:38)
== END 2024-07-24 11:13 | disposition home or self-care (01) ==
LOC: CT 11:12
PROVIDERS: ATTEND Nurse Practitioner Family
DX: Z01.89 Encounter for other specified special examinations (principal); J91.8 Pleural effusion in other conditions classified elsewhere
CPT/HCPCS: 36415; 71260; 82565